=== PATIENT | female | born 1940 | race Caucasian/White ===

== ENCOUNTER 2018-04-20 20:55 | Emergency (ER) | payer MEDICARE ==
[2018-04-20 21:06] VITALS: PULSE 77; RESP 18; TEMP 98.2
[2018-04-20] MEDS ORDERED: DICYCLOMINE 10 MG/ML 2 ML AMP IM STA (21:39)
[2018-04-20] MEDS ORDERED: ACETAMINOPHEN TAB 500 MG TAB PO STA ×2 (21:40→21:58)
[2018-04-20] MEDS ORDERED: KETOROLAC 30 MG/ML 1 ML VIAL IM STA (21:40)
--- NOTE | 2018-04-20 22:09 | ED ---
General Adult HPI - General Chief complaint: Abdominal Pain Stated complaint: abdominal pain Time Seen by Provider: 04/20/18 21:18 Source: patient, RN notes reviewed Mode of arrival: ambulatory Limitations: no limitations - History of Present Illness Initial comments: 77-year-old female since to the emergency department for a chief complaint of abdominal pain 1 hour. Patient states she has had diarrhea for the past 10 days. Patient states she saw her primary care provider for this and was put on Flagyl. She states she had a bad reaction to the Flagyl and started to have facial swelling so stopped that. Patient states she was then put on Cipro. Patient states that today she drank wine and accidentally took the Flagyl. She expressed abdominal pain from this. Patient admits to having past history of C. diff. Patient denies any recent antibiotic use previous to the Cipro or Flagyl. Patient denies any recent hospitalizations or exposure to nursing homes. Patient does admit to mucus in the stool but denies blood. Patient states she does not want any blood work or imaging done today. Patient denies nausea or vomiting. Patient states she solely wants something for pain. Patient has no other complaints at this time including shortness of breath, chest pain, nausea or vomiting, headache, or visual changes. - Related Data Home Medications Medication Instructions Recorded Confirmed Ciprofloxacin HCl 250 mg PO Q12HR 04/20/18 04/20/18 Allergies Allergy/AdvReac Type Severity Reaction Status Date / Time Penicillins Allergy Unknown Unknown Verified 04/19/14 13:57 Review of Systems ROS Statement: Those systems with pertinent positive or pertinent negative responses have been documented in the HPI. ROS Other: All systems not noted in ROS Statement are negative. Past Medical History Past Medical History: No Reported History History of Any Multi-Drug Resistant Organisms: None Reported Additional Past Surgical History / Comment(s): mastectomy, andrew transfewr Past Psychological History: No Psychological Hx Reported Smoking Status: Former smoker Past Alcohol Use History: Daily General Exam Limitations: no limitations General appearance: alert, in no apparent distress Eye exam: Present: normal appearance. Absent: scleral icterus, conjunctival injection GI/Abdominal exam: Present: soft, tenderness (generalized tenderness noted. patient only let me examine her while sitting in the chair and refused to lay down.), normal bowel sounds. Absent: distended, guarding, rebound, rigid Neurological exam: Present: alert, oriented X3, CN II-XII intact Psychiatric exam: Present: normal affect, normal mood Course Vital Signs 04/20/18 21:03 Temperature 98.2 F Pulse Rate 77 Respiratory 18 Rate O2 Sat by Pulse 98 Oximetry Medical Decision Making - Medical Decision Making 77-year-old female presents to the emergency department for a chief complaint of abdominal pain after taking Flagyl while drinking a glass of wine. Patient had Diarrhea for 10 days and was seen by primary care for this and given Cipro and Flagyl. Patient went to take the Cipro while drinking wine but accidentally took the Flagyl. Patient states she is only here for pain medication however patient did drive to the emergency department. I discussed with patient that there is possibility of C. diff infection, diverticulitis, intestinal abscess, as well as other medical complications with her complaint. Patient states she does not want an exam. Patient refuses to put on a gown. Patient states she does not want any blood work or imaging. Patient understands the risks of these medical complications and states she would like to follow-up with primary care for this. She states she only wants pain medications so was given Toradol Tylenol and Bentyl. She states tonight is not a good night for her to be seen in the emergency department and she wants to go home against our recommendation of further workup. On reexamination patient is feeling considerably better. Patient will follow up with primary care for this and return if she has any worsening symptoms. Disposition Clinical Impression: Abdominal pain, Diarrhea Disposition: HOME SELF-CARE Condition: Good Instructions: Abdominal Pain (ED) Additional Instructions: Please follow up with primary care provider tomorrow. Continue to take your medications as directed by primary care. Return to the emergency department if you have any worsening symptoms. Is patient prescribed a controlled substance at d/c from ED?: No Referrals: Raad John MD [Primary Care Provider] - 1-2 days Time of Disposition: 22:08
[2018-04-20 22:10] VITALS: BP 136/81
== END 2018-04-20 22:23 | disposition home or self-care (01) ==
LOC: EC 20:55
DX: R10.9 Unspecified abdominal pain (principal); R19.7 Diarrhea, unspecified; Z53.29 Procedure and treatment not carried out because of patient's decision for other reasons; Z87.891 Personal history of nicotine dependence; Z88.0 Allergy status to penicillin
CPT/HCPCS: 99284; 96372 ×2; J0500; J1885

== ENCOUNTER 2018-04-21 09:07 | Inpatient (IN) | payer MEDICARE ==
[2018-04-21] MEDS ORDERED: MAG HYDROX/AL HYDROX/SIMETH 30 ML, HYOSCYAMINE ELIXIR 10 ML, CIMETIDINE HCL 300 MG, LID... PO STA ×4 (09:22)
[2018-04-21] MEDS ORDERED: ONDANSETRON ODT 4 MG TAB PO STA (09:22)
--- NOTE | 2018-04-21 09:44 | ED ---
Abdominal Pain HPI - General Chief Complaint: Abdominal Pain Stated Complaint: abd pain Time Seen by Provider: 04/21/18 09:15 Source: patient, RN notes reviewed Mode of arrival: ambulatory Limitations: no limitations - History of Present Illness Initial Comments: 77-year-old female presents emergency Department chief complaint upper abdominal pain, nausea vomiting. Patient states she seen in emergency department last night for pain after drinking a glass of wine and taking Flagyl. She states that she initially was prescribed Flagyl for ongoing diarrhea greater than 10 days. She states that she started having a reaction to this so they switched her to ciprofloxacin. She states that she took the Flagyl instead of the Cipro last night and drink a glass of wine. She states that she didn't start vomiting until this morning but had some upper abdominal pain associated with her medication. Patient states that she has no chest pain , shortness breath, back pain, dysuria, hematuria. - Related Data Home Medications Medication Instructions Recorded Confirmed Celecoxib [CeleBREX] 200 mg PO DAILY 04/21/18 04/21/18 Ergocalciferol (Vitamin D2) 50,000 unit PO Q14D 04/21/18 04/21/18 [Vitamin D2] Lisinopril [Zestril] 10 mg PO DAILY 04/21/18 04/21/18 Oxybutynin Chloride 5 mg PO BID 04/21/18 04/21/18 Allergies Allergy/AdvReac Type Severity Reaction Status Date / Time Penicillins Allergy Unknown Unknown Verified 04/21/18 10:12 Review of Systems ROS Statement: Those systems with pertinent positive or pertinent negative responses have been documented in the HPI. ROS Other: All systems not noted in ROS Statement are negative. Past Medical History Past Medical History: No Reported History History of Any Multi-Drug Resistant Organisms: None Reported Additional Past Surgical History / Comment(s): mastectomy, andrew transfewr Past Psychological History: No Psychological Hx Reported Smoking Status: Former smoker Past Alcohol Use History: Daily General Exam Limitations: no limitations General appearance: alert, in no apparent distress Head exam: Present: atraumatic, normocephalic, normal inspection Neck exam: Present: normal inspection. Absent: tenderness, meningismus, lymphadenopathy Respiratory exam: Present: normal lung sounds bilaterally. Absent: respiratory distress, wheezes, rales, rhonchi, stridor Cardiovascular Exam: Present: regular rate, normal rhythm, normal heart sounds. Absent: systolic murmur, diastolic murmur, rubs, gallop, clicks GI/Abdominal exam: Present: soft, tenderness (Mild to moderate upper abdominal tenderness), normal bowel sounds. Absent: distended, guarding, rebound, rigid Back exam: Absent: CVA tenderness (R), CVA tenderness (L) Neurological exam: Present: alert, oriented X3, CN II-XII intact Skin exam: Present: warm, dry, intact, normal color. Absent: rash Course Vital Signs 04/21/18 04/21/18 04/21/18 09:11 09:57 11:00 Temperature 98.1 F Pulse Rate 72 68 84 Respiratory 20 18 18 Rate Blood Pressure 183/81 204/79 192/86 O2 Sat by Pulse 100 97 99 Oximetry 04/21/18 11:51 Temperature Pulse Rate 101 H Respiratory 20 Rate Blood Pressure 209/92 O2 Sat by Pulse 97 Oximetry - Reevaluation(s) Reevaluation #1: 04/21/18 09:43 I initially evaluated the patient and recommended lab work, IV access, medications and CT of abdomen and pelvis patient is refusing all treatment at this time she is requesting pain medication, nausea medication and discharge. I did explain the concerns and recommendations for lab work and imaging. Reevaluation #2: 04/21/18 10:24 Patient reevaluated after GI cocktail Zofran she states that helped some but did not help completely she is requesting pain medication I did inform that she needs to have lab work, CAT scan she does agree at this time she did state the pain has moved into her back at this time Medical Decision Making - Lab Data Result diagrams: 04/21/18 10:39 04/21/18 10:39 Lab Results 04/21/18 04/21/18 04/21/18 Range/Units 10:39 10:39 10:39 WBC 15.0 H (3.8-10.6) k/uL RBC 4.47 (3.80-5.40) m/uL Hgb 13.7 (11.4-16.0) gm/dL Hct 42.5 (34.0-46.0) % MCV 95.2 (80.0-100.0) fL MCH 30.6 (25.0-35.0) pg MCHC 32.2 (31.0-37.0) g/dL RDW 12.7 (11.5-15.5) % Plt Count 230 (150-450) k/uL Neutrophils % 92 % Lymphocytes % 4 % Monocytes % 4 % Eosinophils % 0 % Basophils % 0 % Neutrophils # 13.7 H (1.3-7.7) k/uL Lymphocytes # 0.6 L (1.0-4.8) k/uL Monocytes # 0.6 (0-1.0) k/uL Eosinophils # 0.0 (0-0.7) k/uL Basophils # 0.0 (0-0.2) k/uL PT (9.0-12.0) sec INR (<1.2) APTT (22.0-30.0) sec Sodium 139 (137-145) mmol/L Potassium 4.4 (3.5-5.1) mmol/L Chloride 103 (98-107) mmol/L Carbon Dioxide 26 (22-30) mmol/L Anion Gap 10 mmol/L BUN 23 H (7-17) mg/dL Creatinine 0.70 (0.52-1.04) mg/dL Est GFR (CKD-EPI)AfAm >90 (>60 ml/min/1.73 sqM) Est GFR (CKD-EPI)NonAf 84 (>60 ml/min/1.73 sqM) Glucose 164 H (74-99) mg/dL Plasma Lactic Acid Gregg 1.0 (0.7-2.0) mmol/L Calcium 10.1 (8.4-10.2) mg/dL Total Bilirubin 0.5 (0.2-1.3) mg/dL AST 23 (14-36) U/L ALT 26 (9-52) U/L Alkaline Phosphatase 112 (38-126) U/L Troponin I (0.000-0.034) ng/mL Total Protein 6.8 (6.3-8.2) g/dL Albumin 4.3 (3.5-5.0) g/dL Amylase 70 (30-110) U/L Lipase 71 (23-300) U/L 04/21/18 04/21/18 Range/Units 10:39 10:39 WBC (3.8-10.6) k/uL RBC (3.80-5.40) m/uL Hgb (11.4-16.0) gm/dL Hct (34.0-46.0) % MCV (80.0-100.0) fL MCH (25.0-35.0) pg MCHC (31.0-37.0) g/dL RDW (11.5-15.5) % Plt Count (150-450) k/uL Neutrophils % % Lymphocytes % % Monocytes % % Eosinophils % % Basophils % % Neutrophils # (1.3-7.7) k/uL Lymphocytes # (1.0-4.8) k/uL Monocytes # (0-1.0) k/uL Eosinophils # (0-0.7) k/uL Basophils # (0-0.2) k/uL PT 9.7 (9.0-12.0) sec INR 1.0 (<1.2) APTT 22.1 (22.0-30.0) sec Sodium (137-145) mmol/L Potassium (3.5-5.1) mmol/L Chloride (98-107) mmol/L Carbon Dioxide (22-30) mmol/L Anion Gap mmol/L BUN (7-17) mg/dL Creatinine (0.52-1.04) mg/dL Est GFR (CKD-EPI)AfAm (>60 ml/min/1.73 sqM) Est GFR (CKD-EPI)NonAf (>60 ml/min/1.73 sqM) Glucose (74-99) mg/dL Plasma Lactic Acid Gregg (0.7-2.0) mmol/L Calcium (8.4-10.2) mg/dL Total Bilirubin (0.2-1.3) mg/dL AST (14-36) U/L ALT (9-52) U/L Alkaline Phosphatase (38-126) U/L Troponin I <0.012 (0.000-0.034) ng/mL Total Protein (6.3-8.2) g/dL Albumin (3.5-5.0) g/dL Amylase (30-110) U/L Lipase (23-300) U/L - EKG Data EKG Comments: EKG performed at 10:52 normal sinus rhythm with a rate of 79 ME 126, QRS 84 QT/ QTc 412/472 Disposition Clinical Impression: Small bowel obstruction, Abdominal pain, Ascites Disposition: ADMITTED IP TO THIS HOSP Condition: Fair Referrals: Raad John MD [Primary Care Provider] - 1-2 days
[2018-04-21] MEDS ORDERED: MORPHINE SULFATE 2 MG/ML SYRINGE IVP STA (10:23)
[2018-04-21] MEDS ORDERED: SODIUM CHLORIDE 0.9% 1,000 ML IV STA (10:23)
[2018-04-21 11:09] LABS: Basophils % (A) 0 %; Eosinophils % (A) 0 %; HCT 42.5 % (34.0-46.0); HGB 13.7 gm/dL (11.4-16.0); Lymphocytes # (A) 0.6 k/uL (1.0-4.8); Lymphocytes % (A) 4 %; MCH 30.6 pg (25.0-35.0); MCHC 32.2 g/dL (31.0-37.0); MCV 95.2 fL (80.0-100.0); Mean Platelet Volume 7.4; Monocytes # (A) 0.6 k/uL (0-1.0); Monocytes % (A) 4 %; Neutrophils # (A) 13.7 k/uL (1.3-7.7); Neutrophils % (A) 92 %; Platelet Count 230 k/uL (150-450); RBC 4.47 m/uL (3.80-5.40); RDW 12.7 % (11.5-15.5)
[2018-04-21 11:15] LABS: Partial Thromboplastin Time 22.1 sec (22.0-30.0); Prothrombin Time 9.7 sec (9.0-12.0)
[2018-04-21 11:16] LABS: ALT 26 U/L (9-52); AST 23 U/L (14-36); Albumin 4.3 g/dL (3.5-5.0); Alkaline Phosphatase 112 U/L (38-126); Amylase 70 U/L (30-110); Anion Gap 10 mmol/L; Blood Urea Nitrogen 23 mg/dL (7-17); Calcium 10.1 mg/dL (8.4-10.2); Carbon Dioxide 26 mmol/L (22-30); Chloride 103 mmol/L (98-107); Glucose 164 mg/dL (74-99); Lipase 71 U/L (23-300); Potassium 4.4 mmol/L (3.5-5.1); Sodium 139 mmol/L (137-145); Total Bilirubin 0.5 mg/dL (0.2-1.3); Total Protein 6.8 g/dL (6.3-8.2)
[2018-04-21] MEDS ORDERED: HYDROmorphone 0.5 MG/0.5 ML SYRINGE IVP STA (12:06)
[2018-04-21] MEDS ORDERED: ENALAPRILAT 1.25 MG/ML 1 ML VIAL IVP STA (12:06)
--- NOTE | 2018-04-21 12:06 | CT ---
EXAMINATION TYPE: CT abdomen pelvis w con DATE OF EXAM: 04/21/2018 COMPARISON: NONE HISTORY: 77-year-old female with abdominal pain for 1 day TECHNIQUE: Contiguous axial scanning of the abdomen and pelvis following administration of 100 ml Iso angelo 300 IV contrast. Delayed images through the kidneys and coronal/sagittal reconstructions perform ed. CT DLP: 968 mGycm Automated exposure control for dose reduction was used. FINDINGS: Bilateral breast implants are present. Heart normal size without pericardial effusion. Mild dependent atelectasis in the visualized lower lungs. No pleural effusion. A couple tiny subcentimeter hypodensities left hepatic dome too small fracture CT characterization, l ikely tiny cysts. 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 Portal venous system is patent. No biliary ductal dilatation. Gallbladder appears within normal limits. Adrenal glands, kidneys, spleen, and pancreas appear within normal limits. Small hiatal hernia. Prominent fluid filled small bowel loops mid and lower abdomen. Small bowel loops measure up to 2.9 c m with collapsed distal small bowel loops. Possible transition point right perimedian midabdomen, cor onal image 29. Not clearly confirmed on axial images. There is mild upper abdominal ascites in the perihepatic and perisplenic locations. No free air. Moderate stool burden. No pericolonic inflammatory change. No suspicious lymphadenopathy clearly identified. Bladder partially distended. Uterus and ovaries are visualized. No abnormal fluid collection in the p benjamin or pelvic lymphadenopathy. Pelvic phlebolith are noted. Bones: Posterior fusion hardware in the lower lumbar spine with grade 1 anterolisthesis at L4-L5. IMPRESSION: 1. PROMINENT FLUID-FILLED PROXIMAL AND MID SMALL BOWEL LOOPS MEASURING UP TO 2.9 CM. DISTAL THIRD SMA LL BOWEL LOOPS ARE COLLAPSED. POSSIBLE TRANSITION POINT RIGHT MID ABDOMEN. FINDINGS CONCERNING FOR EA RLY HIGH-GRADE SMALL BOWEL OBSTRUCTION. 2. MILD UPPER ABDOMINAL ASCITES. 3. SMALL HIATAL HERNIA. MODERATE STOOL BURDEN.
[2018-04-21] MEDS ORDERED: NALOXONE 0.4 MG/ML 1 ML VIAL IV PRN (12:19)
--- NOTE | 2018-04-21 13:31 | XR ---
EXAMINATION TYPE: XR chest 2V DATE OF EXAM: 04/21/2018 COMPARISON: None HISTORY: 77-year-old female with pain TECHNIQUE: PA and lateral views FINDINGS: Rightward patient rotation. Heart normal size. Aorta and pulmonary vasculature within normal limits. No consolidation, pneumothorax, or pleural effusion. IMPRESSION: No acute cardiopulmonary process.
[2018-04-21 14:16] LABS: Appearance,Urine Clear (Clear); Bilirubin,Urine Negative (Negative); Blood,Urine Negative (Negative); Color,Urine Light Yellow; Glucose,Urine (UA) 1+ (Negative); Ketones,Urine 1+ (Negative); Leukocyte Esterase,Urine Negative (Negative); Nitrite,Urine Negative (Negative); Protein,Urine Negative (Negative); Specific Gravity,Urine 1.037 (1.001-1.035); Urobilinogen,Urine <2.0 mg/dL (<2.0)
--- NOTE | 2018-04-21 15:15 | P.HPIM ---
History of Present Illness H&P Date: 04/21/18 Chief Complaint: Abdominal pain This is a pleasant 77-year-old female patient of Dr John, has underlying history of osteoarthritis, hypertension, hyperlipidemia, lumbar disc disease with spinal fusion requiring prophylactic mastectomy patient presents emergency room secondary to abdominal pain of 20 hours duration, this is later followed by nausea and vomiting, no fever no chills, no sick contacts. 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 Possible transition point in the right mid abdomen concerning for early high-grade small bowel obstruction. There is also mild upper abdominal ascites. Patient will be kept nothing by mouth, NG tube to be placed, consult with Dr. Barajas her primary general surgeon Review of Systems Constitutional: Reports as per HPI, Denies anorexia, Denies chills, Denies chronic headaches, Denies chronic pain, Denies daytime sleepiness, Denies fatigue, Denies fever, Denies lethargy, Denies malaise, Denies night sweats, Denies poor appetite, Denies sweats, Denies weakness, Denies weight gain, Denies weight loss Ears, nose, mouth and throat: Reports ant. neck pain Cardiovascular: Reports as per HPI, Denies chest pain, Denies claudication, Denies decreased exercise tolerance, Denies dyspnea on exertion, Denies edema, Denies high blood pressure, Denies irregular heart beat, Denies leg edema, Denies lightheadedness, Denies orthopnea, Denies palpitations, Denies paroxysmal nocturnal dyspnea, Denies phlebitis, Denies rapid heart beat, Denies shortness of breath, Denies syncope Respiratory: Reports as per HPI, Denies congestion, Denies cough, Denies cough with sputum, Denies dyspnea, Denies excessive sputum, Denies hemoptysis, Denies home oxygen, Denies pain, Denies pain on inspiration, Denies pleurisy, Denies respiratory infections, Denies sleep apnea, Denies snoring, Denies wheezing Gastrointestinal: Reports as per HPI, Reports abdominal pain, Reports bloating, Reports constipation, Reports dyspepsia, Reports early satiety, Reports loss of appetite, Reports nausea, Reports vomiting, Denies belching, Denies BRBPR, Denies change in bowel habits, Denies coffee ground emesis, Denies diarrhea, Denies excessive gas, Denies heartburn, Denies hematemesis, Denies hematochezia , Denies indigestion, Denies jaundice, Denies lactose intolerance, Denies melena Genitourinary: Reports as per HPI, Denies abnormal vaginal bleeding, Denies decreased libido, Denies difficulty conceiving, Denies difficulty voiding, Denies dysmenorrhea, Denies dyspareunia, Denies dysuria, Denies flank pain, Denies genital sores, Denies hematuria, Denies hot flashes, Denies incomplete emptying, Denies kidney stones, Denies menorrhagia, Denies mixed incontinence, Denies nocturia, Denies pelvic pain, Denies post void dribbling, Denies , Denies prolapse symptoms, Denies stress incontinence, Denies urge incontinence , Denies urgency, Denies urinary frequency, Denies vaginal discharge, Denies vaginal dryness, Denies vaginal itching, Denies vaginal odor Menstruation: Reports as per HPI, Denies amenorrhea, Denies amenorrhea on BC, Denies currently menstrual, Denies cycle < 21 days, Denies cycle > 35 days, Denies cycle variable, Denies menses 1-7 days, Denies menses 8 or > days, Denies menses variable, Denies period heavy, Denies period light, Denies period normal, Denies period spotting, Denies post hysterectomy, Denies postmenopausal , Denies premenarcheal Musculoskeletal: Reports as per HPI, Denies arm numbness/tingling, Denies atrophy, Denies fractures, Denies frequent falls, Denies gait dysfunction, Denies hot joints, Denies leg numbness/tingling, Denies limitation of motion, Denies loss of height, Denies low back pain, Denies morning stiffness, Denies muscle cramps, Denies muscle weakness, Denies myalgias, Denies neck pain, Denies neck stiffness, Denies prior amputations, Denies redness of joints, Denies shooting arm pain, Denies shooting leg pain Integumentary: Reports as per HPI, Denies acne, Denies boils, Denies brittle nails, Denies change in hair/nails, Denies color changes, Denies darkening of skin, Denies depigmentation, Denies dryness, Denies foot/leg ulcers, Denies growths, Denies hirsutism, Denies lesions, Denies onychomycosis, Denies pruritus , Denies rash, Denies sores, Denies striae, Denies unusual bruising, Denies wounds Neurological: Reports as per HPI, Denies aphasia, Denies ataxia, Denies balance difficulties, Denies burning pain, Denies change in mentation, Denies change in smell/taste, Denies change in speech, Denies confusion, Denies convulsions, Denies double vision, Denies gait dysfunction, Denies head injury, Denies headaches, Denies hearing difficulties, Denies lack of coordination, Denies loss of vision, Denies memory loss, Denies migraines, Denies motor disturbance, Denies numbness, Denies paralysis, Denies paresthesias, Denies seizures, Denies sensory deficit, Denies spasticity, Denies syncope, Denies tic, Denies tingling , Denies transient paralysis, Denies tremors, Denies vertigo, Denies weakness, Denies visual changes Psychiatric: Reports as per HPI Endocrine: Reports as per HPI Past Medical History Past Medical History: Cancer, GERD/Reflux, Hyperlipidemia, Hypertension, Pneumonia, Sleep Apnea/CPAP/BIPAP Additional Past Medical History / Comment(s): skin ca. murmur, tremors(hands) .spinal stenosis History of Any Multi-Drug Resistant Organisms: None Reported Past Surgical History: Back Surgery, Tonsillectomy Additional Past Surgical History / Comment(s): nilam breast bx nilam mastectomy( prophyllactic-mom had hx breast ca), tendon repair lt ankle, hx shingles 20 years ago, upper dental bridge, l5-6 fusion, cataracts, colonscopies Past Anesthesia/Blood Transfusion Reactions: No Reported Reaction Additional Past Anesthesia/Blood Transfusion Reaction / Comment(s): had blood transfusion-no reaction Past Psychological History: No Psychological Hx Reported Smoking Status: Former smoker Past Alcohol Use History: Daily Additional Past Alcohol Use History / Comment(s): started smoking age 16 and quit age 35 smoked 1/2 ppd. drinks 5 ounces wine per day Past Drug Use History: None Reported - Past Family History Mother Family Medical History: Cancer Additional Family Medical History / Comment(s): breast ca Father Additional Family Medical History / Comment(s): born with heart defect- at age 49 Medications and Allergies Home Medications Medication Instructions Recorded Confirmed Type Celecoxib [CeleBREX] 200 mg PO DAILY 04/21/18 04/21/18 History Ergocalciferol (Vitamin D2) 50,000 unit PO Q14D 04/21/18 04/21/18 History [Vitamin D2] Lisinopril [Zestril] 10 mg PO DAILY 04/21/18 04/21/18 History Oxybutynin Chloride 5 mg PO BID 04/21/18 04/21/18 History Allergies Allergy/AdvReac Type Severity Reaction Status Date / Time Penicillins Allergy Unknown Unknown Verified 04/21/18 10:12 Physical Exam Vitals: Vital Signs Temp Pulse Pulse Resp BP BP Pulse Ox 04/21/18 14:43 98.5 F 89 16 159/79 97 04/21/18 13:04 91 18 182/79 96 04/21/18 11:51 101 H 20 209/92 97 04/21/18 11:00 84 18 192/86 99 04/21/18 09:57 68 18 204/79 97 04/21/18 09:11 98.1 F 72 20 183/81 100 Intake and Output 04/20/18 04/21/18 04/21/18 22:59 06:59 14:59 Other: Weight 56.699 kg - Constitutional General appearance: cooperative - EENT Eyes: anicteric sclerae, PERRLA, poor dentition, normal appearance ENT: NA/AT, normal oropharynx - Neck Neck: no lymphadenopathy, normal ROM, no other, no rigidity, no stridor, no thyromegaly - Respiratory Respiratory: bilateral: CTA, negative: diminished, dullness, rales, rhonchi - Cardiovascular Rhythm: regular Heart sounds: normal: S1, S2 Abnormal Heart Sounds: no systolic murmur, no diastolic murmur, no rub, no S3 Gallop, no S4 Gallop, no click, no other - Gastrointestinal General gastrointestinal: absent bowel sounds, soft Localized gastrointestinal: tender: diffuse, rebound: LUQ - Integumentary Integumentary: decreased turgor, normal - Neurologic Neurologic: CNII-XII intact - Musculoskeletal Musculoskeletal: gait normal, strength equal bilaterally - Psychiatric Psychiatric: A&O x's 3, appropriate affect, intact judgment & insight Results CBC & Chem 7: 04/21/18 10:39 04/21/18 10:39 Labs: Abnormal Lab Results - Last 24 Hours (Table) 04/21/18 04/21/18 04/21/18 Range/Units 10:39 10:39 13:50 WBC 15.0 H (3.8-10.6) k/uL Neutrophils # 13.7 H (1.3-7.7) k/uL Lymphocytes # 0.6 L (1.0-4.8) k/uL BUN 23 H (7-17) mg/dL Glucose 164 H (74-99) mg/dL Ur Specific [place] 1.037 H (1.001-1.035) Urine Glucose (UA) 1+ H (Negative) Urine Ketones 1+ H (Negative) Thrombosis Risk Factor Assmnt - DVT/VTE Prophylaxis DVT/VTE Prophylaxis: Pharmacologic Prophylaxis ordered - Choose All That Apply Each Risk Factor Represents 2 Points: Patient confined to bed Each Risk Factor Represents 3 Points: Age 75 years or older Thrombosis Risk Factor Assessment Total Risk Factor Score: 5 Thrombosis Risk Factor Assessment Level: High Risk Assessment and Plan Plan: 1. Acute abdominal pain with suspected high-grade small bowel obstruction on the early phase, patient's going to be made nothing by mouth, NG tube, consult with Dr. Barajas, should there be immediate surgical intervention this hospitalization, she'll be a class II anesthesia risk, EKG is normal without any acute ST-T wave changes, chest x-ray shows no acute cardiopulmonary processes. IV opiates for pain, antiemetics, IV hydration 2. Hypertension, on lisinopril, while nothing by mouth, hydralazine to be given 10 mg every 6 when necessary 3. Hyperlipidemia, Zocor on hold 4. Osteoarthritis, Celebrex on hold 5. Leukocytosis secondary to abdominal pathology, 6. 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 Continue to monitor 7. Impaired random blood sugars, continue to monitor. Sugars, A1c to be obtained 8. Mild dehydration with mild azotemia and ketonuria, IV hydration 9. GI prophylaxis with IV PPI 10. DVT prophylaxis, Lovenox 40 every 24 hours
[2018-04-21] MEDS ORDERED: ENALAPRILAT 1.25 MG/ML 1 ML VIAL IVP PRN (15:17)
[2018-04-21] MEDS: SODIUM CHLORIDE 0.9% 1,000 ML IV SCH (15:30)
[2018-04-21] MEDS: ENOXAPARIN 40 MG/0.4 ML SYRINGE SQ SCH (16:21)
[2018-04-21] MEDS: PANTOPRAZOLE 40 MG/10 ML VIAL IVP SCH (16:22)
[2018-04-21] MEDS: HYDROmorphone 1 MG/ML 1 ML SYRINGE IVP PRN ×4 (16:24→23:54)
--- NOTE | 2018-04-21 17:35 | P.GSCN ---
History of Present Illness Consult date: 04/21/18 Reason for Consult: Abdominal pain History of present illness: 77-year-old female known to our service. He was having abdominal issues dating back approximately 10-14 days ago when she was having episodes of diarrhea in the morning which were mucousy. She was seen by her primary care physician. She was started on oral Flagyl at that time. She apparently had a ALLERGIC reaction with some alondra-oral swelling and stopped taking her Flagyl. She instead was provided a prescription for ciprofloxacin. By the time she picked up her prescription she said her GI complaints had resolved and she never started taking them. Yesterday she apparently had a mucousy stool and went to take her ciprofloxacin but accidentally took one dose of Flagyl. She had a glass of wine as well. Shortly after that she began experiencing increased abdominal pain. She went to the ER for evaluation. White blood cell count slightly elevated at 15.0. Lactic acid normal. Patient describes her pain is persisting at this time. Pain is slightly more in the left midabdomen. CAT scan without oral contrast shows dilated small bowel loops with a possible transition point just to the right of midline in the lower abdomen. Patient has no history of surgical intervention in the abdomen. There is a fair amount of air and stool scattered throughout the entire colon however. Small amount of free fluid seen in the upper abdomen. No evidence of pneumoperitoneum. Nasogastric tube apparently was ordered however the patient is not vomiting currently would prefer to avoid that if at all possible. No recent travel. No sick contacts. She had a history somewhat similar to this but it was about 20 years ago or so. That episode resolved spontaneously. Last colonoscopy 4-[address] Gaviria. That was apparently normal. Denies rectal bleeding or melena. Emesis was dark in color. Review of Systems The patient denies any acute changes in vision or hearing, no dysphagia or odynophagia, no chest pain or shortness of breath, no dysuria or hematuria, no headache, no runny nose, no rectal bleeding or melena, no unexplained weight loss Past Medical History Past Medical History: Cancer, GERD/Reflux, Hyperlipidemia, Hypertension, Pneumonia, Sleep Apnea/CPAP/BIPAP Additional Past Medical History / Comment(s): skin ca. murmur, tremors(hands) .spinal stenosis History of Any Multi-Drug Resistant Organisms: None Reported Past Surgical History: Back Surgery, Tonsillectomy Additional Past Surgical History / Comment(s): nilam breast bx nilam mastectomy( prophyllactic-mom had hx breast ca), tendon repair lt ankle, hx shingles 20 years ago, upper dental bridge, l5-6 fusion, cataracts, colonscopies Past Anesthesia/Blood Transfusion Reactions: No Reported Reaction Additional Past Anesthesia/Blood Transfusion Reaction / Comm: had blood transfusion-no reaction Past Psychological History: No Psychological Hx Reported Smoking Status: Former smoker Past Alcohol Use History: Daily Additional Past Alcohol Use History / Comment(s): started smoking age 16 and quit age 35 smoked 1/2 ppd. drinks 5 ounces wine per day Past Drug Use History: None Reported - Past Family History Mother Family Medical History: Cancer Additional Family Medical History / Comment(s): breast ca Father Additional Family Medical History / Comment(s): born with heart defect- at age 49 Medications and Allergies Home Medications Medication Instructions Recorded Confirmed Type Celecoxib [CeleBREX] 200 mg PO DAILY 04/21/18 04/21/18 History Ergocalciferol (Vitamin D2) 50,000 unit PO Q14D 04/21/18 04/21/18 History [Vitamin D2] Lidocaine 5% Patch [Lidoderm] 1 patch TOPICAL DAILY 04/21/18 04/21/18 History Lisinopril [Zestril] 10 mg PO DAILY 04/21/18 04/21/18 History Oxybutynin Chloride 5 mg PO BID 04/21/18 04/21/18 History Simvastatin [Zocor] 10 mg PO HS 04/21/18 04/21/18 History Zolpidem [Ambien] 5 mg PO HS PRN 04/21/18 04/21/18 History Allergies Allergy/AdvReac Type Severity Reaction Status Date / Time Penicillins Allergy Unknown Unknown Verified 04/21/18 10:12 Surgical - Exam Vital Signs Temp Pulse Resp BP Pulse Ox 98.1 F 72 20 183/81 100 04/21/18 09:11 04/21/18 09:11 04/21/18 09:11 04/21/18 09:11 04/21/18 09:11 Physical exam: General: Well-developed, well-nourished HEENT: Normocephalic, sclerae nonicteric Abdomen: Mid abdominal tenderness, mild distention Extremities: No edema Neuro: Alert and oriented Results - Labs 04/21/18 10:39 04/21/18 10:39 Abnormal Lab Results - Last 24 Hours (Table) 04/21/18 04/21/18 04/21/18 Range/Units 10:39 10:39 13:50 WBC 15.0 H (3.8-10.6) k/uL Neutrophils # 13.7 H (1.3-7.7) k/uL Lymphocytes # 0.6 L (1.0-4.8) k/uL BUN 23 H (7-17) mg/dL Glucose 164 H (74-99) mg/dL Ur Specific [place] 1.037 H (1.001-1.035) Urine Glucose (UA) 1+ H (Negative) Urine Ketones 1+ H (Negative) Diabetes panel 04/21/18 Range/Units 10:39 Sodium 139 (137-145) mmol/L Potassium 4.4 (3.5-5.1) mmol/L Chloride 103 (98-107) mmol/L Carbon Dioxide 26 (22-30) mmol/L BUN 23 H (7-17) mg/dL Creatinine 0.70 (0.52-1.04) mg/dL Glucose 164 H (74-99) mg/dL Calcium 10.1 (8.4-10.2) mg/dL AST 23 (14-36) U/L ALT 26 (9-52) U/L Alkaline Phosphatase 112 (38-126) U/L Total Protein 6.8 (6.3-8.2) g/dL Albumin 4.3 (3.5-5.0) g/dL Calcium panel 04/21/18 Range/Units 10:39 Calcium 10.1 (8.4-10.2) mg/dL Albumin 4.3 (3.5-5.0) g/dL Pituitary panel 04/21/18 Range/Units 10:39 Sodium 139 (137-145) mmol/L Potassium 4.4 (3.5-5.1) mmol/L Chloride 103 (98-107) mmol/L Carbon Dioxide 26 (22-30) mmol/L BUN 23 H (7-17) mg/dL Creatinine 0.70 (0.52-1.04) mg/dL Glucose 164 H (74-99) mg/dL Calcium 10.1 (8.4-10.2) mg/dL Adrenal panel 04/21/18 Range/Units 10:39 Sodium 139 (137-145) mmol/L Potassium 4.4 (3.5-5.1) mmol/L Chloride 103 (98-107) mmol/L Carbon Dioxide 26 (22-30) mmol/L BUN 23 H (7-17) mg/dL Creatinine 0.70 (0.52-1.04) mg/dL Glucose 164 H (74-99) mg/dL Calcium 10.1 (8.4-10.2) mg/dL Total Bilirubin 0.5 (0.2-1.3) mg/dL AST 23 (14-36) U/L ALT 26 (9-52) U/L Alkaline Phosphatase 112 (38-126) U/L Total Protein 6.8 (6.3-8.2) g/dL Albumin 4.3 (3.5-5.0) g/dL Assessment and Plan (1) Abdominal pain Narrative/Plan: 77-year-old female with abdominal pain and CAT scan findings suspicious for partial small bowel obstruction. Keep nothing by mouth for now. Repeat labs and x-rays tomorrow morning. If no clinical improvement would consider diagnostic laparoscopy particularly in light of the patient's lack of previous abdominal surgeries. Current Visit: Yes Status: Acute Code(s): R10.9 - UNSPECIFIED ABDOMINAL PAIN SNOMED Code(s): 72957878
[2018-04-22] MEDS: HYDROmorphone 1 MG/ML 1 ML SYRINGE IVP PRN ×4 (02:55→21:33)
[2018-04-22] MEDS: SODIUM CHLORIDE 0.9% 1,000 ML IV SCH ×3 (03:56→17:52)
[2018-04-22 07:52] LABS: Basophils % (A) 0 %; Eosinophils % (A) 0 %; HCT 46.7 % (34.0-46.0); HGB 14.5 gm/dL (11.4-16.0); Lymphocytes # (A) 0.8 k/uL (1.0-4.8); Lymphocytes % (A) 5 %; MCH 30.2 pg (25.0-35.0); MCHC 31.1 g/dL (31.0-37.0); MCV 97.1 fL (80.0-100.0); Mean Platelet Volume 7.3; Monocytes # (A) 1.1 k/uL (0-1.0); Monocytes % (A) 7 %; Neutrophils # (A) 14.9 k/uL (1.3-7.7); Neutrophils % (A) 88 %; Platelet Count 257 k/uL (150-450); RBC 4.81 m/uL (3.80-5.40); RDW 12.9 % (11.5-15.5); WBC 16.9 k/uL (3.8-10.6)
[2018-04-22 08:06] LABS: ALT 24 U/L (9-52); AST 16 U/L (14-36); Albumin 3.3 g/dL (3.5-5.0); Alkaline Phosphatase 70 U/L (38-126); Anion Gap 7 mmol/L; Blood Urea Nitrogen 16 mg/dL (7-17); Calcium 8.8 mg/dL (8.4-10.2); Carbon Dioxide 25 mmol/L (22-30); Chloride 108 mmol/L (98-107); Glucose 156 mg/dL (74-99); Potassium 4.5 mmol/L (3.5-5.1); Sodium 140 mmol/L (137-145); Total Bilirubin 0.5 mg/dL (0.2-1.3); Total Protein 5.6 g/dL (6.3-8.2)
[2018-04-22] MEDS ORDERED: ERTAPENEM 1 GM in SODIUM CHLORIDE 0.9% 50 ML IVPB SCH (09:15)
[2018-04-22] MEDS: ONDANSETRON 4 MG/2 ML VIAL IVP PRN ×2 (09:15→12:14)
[2018-04-22] MEDS: ENOXAPARIN 40 MG/0.4 ML SYRINGE SQ SCH (09:15)
[2018-04-22] MEDS: PANTOPRAZOLE 40 MG/10 ML VIAL IVP SCH (09:16)
[2018-04-22] MEDS: LISINOPRIL 10 MG TAB PO SCH (09:16)
--- NOTE | 2018-04-22 09:20 | P.PN ---
Subjective Progress Note Date: 04/22/18 Principal diagnosis: Abdominal pain Patient evaluated after x-rays performed today. Still having abdominal pain at the same degree as yesterday. Today's white blood cell count slightly higher than yesterday. Abdominal x-ray report pending although obstructive pattern seems improved. No free air is seen. Patient is afebrile with no tachycardia. Objective - Vital Signs Vital signs: Vital Signs Temp 97.3 F L 04/22/18 05:49 Pulse 86 04/22/18 05:49 Resp 16 04/22/18 05:49 BP 137/69 04/22/18 05:49 Pulse Ox 95 04/22/18 05:49 Intake & Output 04/21/18 04/22/18 04/22/18 18:59 06:59 18:59 Weight 56.699 kg Other: # Voids 1 - Exam Abdomen: Soft, mild distention, mild to moderate diffuse tenderness slightly increased from yesterday. - Labs CBC & Chem 7: 04/22/18 07:39 04/22/18 07:39 Labs: Abnormal Lab Results - Last 24 Hours (Table) 04/21/18 04/21/18 04/21/18 Range/Units 10:39 10:39 13:50 WBC 15.0 H (3.8-10.6) k/uL Hct (34.0-46.0) % Neutrophils # 13.7 H (1.3-7.7) k/uL Lymphocytes # 0.6 L (1.0-4.8) k/uL Monocytes # (0-1.0) k/uL Chloride (98-107) mmol/L BUN 23 H (7-17) mg/dL Glucose 164 H (74-99) mg/dL Total Protein (6.3-8.2) g/dL Albumin (3.5-5.0) g/dL Ur Specific [place] 1.037 H (1.001-1.035) Urine Glucose (UA) 1+ H (Negative) Urine Ketones 1+ H (Negative) 04/22/18 04/22/18 Range/Units 07:39 07:39 WBC 16.9 H (3.8-10.6) k/uL Hct 46.7 H (34.0-46.0) % Neutrophils # 14.9 H (1.3-7.7) k/uL Lymphocytes # 0.8 L (1.0-4.8) k/uL Monocytes # 1.1 H (0-1.0) k/uL Chloride 108 H (98-107) mmol/L BUN (7-17) mg/dL Glucose 156 H (74-99) mg/dL Total Protein 5.6 L (6.3-8.2) g/dL Albumin 3.3 L (3.5-5.0) g/dL Ur Specific [place] (1.001-1.035) Urine Glucose (UA) (Negative) Urine Ketones (Negative) Assessment and Plan (1) Abdominal pain Narrative/Plan: Patient having ongoing abdominal pain with leukocytosis. Given initial CAT scan findings and exam findings recommend diagnostic laparoscopy. Potential need for laparotomy and/or bowel resection and/or ostomy reviewed. Risks of bleeding, infection, laparotomy, hernia, abscess, anesthesia related complications including cardiac and respiratory issues were discussed. She understands and wishes to proceed. Current Visit: Yes Status: Acute Code(s): R10.9 - UNSPECIFIED ABDOMINAL PAIN SNOMED Code(s): 83004142
--- NOTE | 2018-04-22 10:53 | XR ---
EXAMINATION TYPE: XR abdomen complete w decub DATE OF EXAM: 04/22/2018 COMPARISON: CT abdomen pelvis 04/21/2018 HISTORY: Partial small bowel obstruction TECHNIQUE: Supine, upright, and left side down lateral decubitus views of the abdomen are obtained. FINDINGS: There is no evidence for pneumoperitoneum. The bowel gas pattern is unremarkable as there is air throughout nondilated small and large bowel. No sizeable air fluid levels. No mass effects are seen. Postop changes are noted at the lumbosacral spine. Lung bases are clear. R etained fecal debris is noted. No unusual calcifications. IMPRESSION: Correlate for fecal stasis. Follow-up as indicated.
[2018-04-22] MEDS ORDERED: IV FLUID CONTINUATION 1,000 ML IV ONE (12:13)
[2018-04-22] MEDS ORDERED: MIDAZOLAM 2 MG/2 ML VIAL IV ONE (12:31)
[2018-04-22 13:24] LABS: Hemoglobin A1C 5.9 % (4.0-6.0)
[2018-04-22] MEDS ORDERED: MIDAZOLAM 2 MG/2 ML VIAL ONE (13:31)
[2018-04-22] MEDS ORDERED: GLYCOPYRROLATE 0.2 MG/ML 2 ML VIAL ONE (13:31)
[2018-04-22] MEDS ORDERED: ROCURONIUM BROMIDE 10 MG/ML 10 ML VIAL IV ONE (13:31)
[2018-04-22] MEDS ORDERED: LIDOCAINE 1% INJ 10MG/ML (20 ML MDV) ONE (13:31)
[2018-04-22] MEDS ORDERED: NEOSTIGMINE 1 MG/ML 10 ML VIAL ONE (13:31)
[2018-04-22] MEDS ORDERED: SUCCINYLCHOLINE CHLORIDE 100 MG/5 ML SYR IV ONE (13:31)
[2018-04-22] MEDS ORDERED: fentaNYL (PF) 50 MCG/ML 2 ML AMP ONE (13:31)
[2018-04-22] MEDS ORDERED: PHENYLEPHRINE-0.9% NACL SYG 1 MG/10 ML SYRINGE ONE (13:31)
[2018-04-22] MEDS ORDERED: metroNIDAZOLE-NS PMX 500 MG in SALINE 1 100ML.BAG IVPB STA (13:34)
--- NOTE | 2018-04-22 15:05 | P.PN ---
Subjective Progress Note Date: 04/22/18 This is a pleasant 77-year-old female patient of Dr John, has underlying history of osteoarthritis, hypertension, hyperlipidemia, lumbar disc disease with spinal fusion requiring prophylactic mastectomy patient presents emergency room secondary to abdominal pain of 20 hours duration, this is later followed by nausea and vomiting, no fever no chills, no sick contacts. 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 Possible transition point in the right mid abdomen concerning for early high-grade small bowel obstruction. There is also mild upper abdominal ascites. Patient will be kept nothing by mouth, NG tube to be placed, consult with Dr. Barajas her primary general surgeon 04/22: White count 16.9, hemoglobin 14.5. Blood sugar 164-156. Patient remains afebrile. Vital signs are stable. Blood pressure is controlled and heart rate is within normal limits. Pulse ox 95% on room air. Repeat abdominal x-ray shows correlate for fecal stasis. Patient has been seen and followed by Dr. Barajas with plan for diagnostic laparoscopy. Objective - Vital Signs Vital signs: Vital Signs Temp 97.3 F L 04/22/18 05:49 Pulse 86 04/22/18 08:00 Resp 16 04/22/18 08:00 BP 137/69 04/22/18 05:49 Pulse Ox 95 04/22/18 05:49 Intake & Output 04/21/18 04/22/18 04/22/18 18:59 06:59 18:59 Weight 56.699 kg Other: Voiding Method Toilet # Voids 1 - Exam General appearance: cooperative - EENT Eyes: anicteric sclerae, PERRLA, poor dentition, normal appearance ENT: NA/AT, normal oropharynx - Neck Neck: no lymphadenopathy, normal ROM, no other, no rigidity, no stridor, no thyromegaly - Respiratory Respiratory: bilateral: CTA, negative: diminished, dullness, rales, rhonchi - Cardiovascular Rhythm: regular Heart sounds: normal: S1, S2 Abnormal Heart Sounds: no systolic murmur, no diastolic murmur, no rub, no S3 Gallop, no S4 Gallop, no click, no other - Gastrointestinal General gastrointestinal: absent bowel sounds, soft Localized gastrointestinal: tender: diffuse, rebound: LUQ - Integumentary Integumentary: decreased turgor, normal - Neurologic Neurologic: CNII-XII intact - Musculoskeletal Musculoskeletal: gait normal, strength equal bilaterally - Psychiatric Psychiatric: A&O x's 3, appropriate affect, intact judgment & insight - Labs CBC & Chem 7: 04/22/18 07:39 04/22/18 07:39 Labs: Abnormal Lab Results - Last 24 Hours (Table) 04/21/18 04/22/18 04/22/18 Range/Units 13:50 07:39 07:39 WBC 16.9 H (3.8-10.6) k/uL Hct 46.7 H (34.0-46.0) % Neutrophils # 14.9 H (1.3-7.7) k/uL Lymphocytes # 0.8 L (1.0-4.8) k/uL Monocytes # 1.1 H (0-1.0) k/uL Chloride 108 H (98-107) mmol/L Glucose 156 H (74-99) mg/dL Total Protein 5.6 L (6.3-8.2) g/dL Albumin 3.3 L (3.5-5.0) g/dL Ur Specific [place] 1.037 H (1.001-1.035) Urine Glucose (UA) 1+ H (Negative) Urine Ketones 1+ H (Negative) Assessment and Plan Plan: 1. Acute abdominal pain with suspected high-grade small bowel obstruction. Continue nothing by mouth, NG tube, consult with Dr. Barajas with plan for diagnostic laparoscopy. Class II anesthesia risk, EKG is normal without any acute ST-T wave changes, chest x-ray shows no acute cardiopulmonary processes. IV opiates for pain, antiemetics, IV hydration 2. Hypertension, on lisinopril, while nothing by mouth, Vasotec 1.25 mg IV push every 6 hours for systolic blood pressure greater than 160. 3. Hyperlipidemia, Zocor on hold 4. Osteoarthritis, Celebrex on hold 5. Leukocytosis secondary to abdominal pathology, 6. CKD stage I, GFR is over 90. Continue to monitor 7. Impaired random blood sugars, continue to monitor. Sugars, A1c to be obtained 8. Mild dehydration with mild azotemia and ketonuria, IV hydration 9. GI prophylaxis with IV PPI 10. DVT prophylaxis, Lovenox 40 every 24 hours Discharge plan: Return home Impression and plan of care have been directed as dictated by the signing physician. Vanita Jacinto nurse practitioner acting as scribe for signing physician.
[2018-04-22] MEDS ORDERED: ACETAMINOPHEN IV (For NPO) 1,000 MG in EMPTY BAG 1 BAG IVPB ONE (15:11)
[2018-04-22] MEDS ORDERED: NALOXONE 0.4 MG/ML 1 ML VIAL IV PRN (15:11)
[2018-04-22] MEDS ORDERED: METOCLOPRAMIDE 5 MG/ML 2 ML VIAL IVP PRN (15:11)
[2018-04-22] MEDS ORDERED: SODIUM CHLORIDE 0.9% 50 ML with ceFAZolin 2,000 MG IV ONE ×2 (15:25)
[2018-04-22] MEDS ORDERED: LACTATED RINGERS 1,000 ML IV ONE ×2 (15:25)
[2018-04-22] MEDS: HYDROmorphone 1 MG/ML 1 ML SYRINGE IVP ONE ×3 (15:40→16:04)
[2018-04-22] MEDS ORDERED: ERTAPENEM 1 GM in SODIUM CHLORIDE 0.9% 50 ML IVPB STA (20:09)
--- NOTE | 2018-04-22 20:55 | P.OP ---
Date of Procedure: 04/22/18 Procedure(s) Performed: PREOPERATIVE DIAGNOSIS: Small bowel obstruction POSTOPERATIVE DIAGNOSIS: Small bowel obstruction with ischemic loop of bowel secondary to adhesive band PROCEDURE: Diagnostic laparoscopy, laparotomy with small bowel resection, incidental appendectomy SURGEON: Karl EBL: Minimal see anesthesia record ANESTHESIA: Gen. COMPLICATIONS: None OPERATIVE PROCEDURE: The patient was brought and placed on the operating room table in the supine position. The patient was placed under general anesthesia at that time. The abdomen was prepped and draped in the usual sterile fashion. A small vertical infraumbilical incision was made. The fascia was grasped with the Robb forceps. The fascia was retracted anteriorly. The Veress needle was advanced into the peritoneal cavity. The saline drop test was normal. Insufflation took place up to 15 mmHg. A 5 mm optical trocar was advanced and the peritoneal cavity. Upon insertion of the camera a red-pinkish serosanguineous fluid was identified in the pelvis and upper quadrants. A loop of small bowel present in the left upper quadrant had an ischemic appearance. At that time I converted to an open approach. A vertical incision was made extending from below the umbilicus to above the umbilicus. Dissection through the subcutaneous fat and fascia took place using electrocautery. The bowel was carefully inspected. The proximal bowel. Slightly distended. The ischemic section of bowel appeared to be torsed slightly related to an adhesive band. The band seemed to be emanating from the left upper quadrant retroperitoneum. Careful inspection of the area where the adhesive band originated revealed inflammatory changes adjacent to the descending colon epiploic fat. The colon itself in that area appeared normal. The entire colon was inspected and it should be noted that the patient had significant constipation with hard stools throughout. Despite that the colon was non-distended. There were no palpable masses. This constipation extended all the way down to the peritoneal reflection. The area where the bowel had been twisted had a ischemic appearance with full-thickness necrosis suspected. The portion of bowel proximal to that for a distance of approximately 1-1.5 feet also had a ischemic appearance and it was my decision to choose a site just proximal to that for resection. The bowel was resected at that point using a linear 75 blue load stapler. The bowel was divided distal to the transition point also using a linear 75 blue load stapler. The mesentery was divided using the LigaSure device. The bowel proximally was milked back to the stomach where proximally 500 mL of bilious fluid was evacuated. A [id number] anastomosis then took place. The antimesenteric portion of staple line was excised. The linear 75 stapler was fired along the antimesenteric border. The defect was then closed transversely using a TX 60 device. The TX 60 stapler line was imbricated using interrupted 3-0 GI silk Lambert sutures. The defect in the mesentery was closed using interrupted 3-0 GI silk sutures. The abdominal cavity was copiously irrigated. No bleeding was seen. The midline fascia was reapproximated using a running double-stranded #1 PDS suture. The skin was loosely reapproximated with lauryn. A sterile outer dressing was applied. At the end of this procedure the sponge and needle counts were correct. DISPOSITION: Stable to the recovery room
--- NOTE | 2018-04-22 23:37 | P.CONS ---
History of Present Illness - Reason for Consult Consult date: 04/22/18 - Chief Complaint abdominal pain - History of Present Illness pleasant 77-year-old female presents to Hospital with 20 hours of increasing abdominal pain. she has an extensive past medical history and consequently with the unremitting pain presented to the emergency center, and was with leukocytosis but not much fever. The CT scan revealed the small bowel obstruction and with symptoms was taken to the OR and a segment of ischemic small bowel was encountered and resected.With allergies the consult was requested for ABX advice. Patient doing better and tolerates Ice chips without nausea. Denies fever or chills, no nausea or emesis, has chronic constipation. Review of Systems HEENT:Denies headache or acute visual change. Denies sinus or mouth discomforts. Denies neck stiffness or pain. Denies significant oral cavity pain. Denies difficulty on swallowing. Lungs: Denies significant shortness of breath, cough, sputum production, or hemoptysis. Cardiovascular: Denies significant shortness of breath, chest pain, chest wall pain, orthopnea, dyspnea on exertion, syncope Gastrointestinal:as per HPI Musculoskeletal: denies significant myalgias or arthralgias. No new joint swelling. Denies new back pain. Skin: Denies new rash or lesions. No new ulcers or wounds are related.. Neuro: Denies headache or visual change. Denies any new onset weakness or difficulty with ambulation. Denies falls or seizures. Psychiatric:Denies anxiety or depression. Endocrine: Denies significant fatigue, denies significant weight loss or weight gain. Past Medical History Past Medical History: Cancer, GERD/Reflux, Hyperlipidemia, Hypertension, Pneumonia, Sleep Apnea/CPAP/BIPAP Additional Past Medical History / Comment(s): skin ca. murmur, tremors(hands) .spinal stenosis History of Any Multi-Drug Resistant Organisms: None Reported Past Surgical History: Back Surgery, Tonsillectomy Additional Past Surgical History / Comment(s): nilam breast bx nilam mastectomy( prophyllactic-mom had hx breast ca), tendon repair lt ankle, hx shingles 20 years ago, upper dental bridge, l5-6 fusion, cataracts, colonscopies Past Anesthesia/Blood Transfusion Reactions: No Reported Reaction Additional Past Anesthesia/Blood Transfusion Reaction / Comm: had blood transfusion-no reaction Past Psychological History: No Psychological Hx Reported, Anxiety Additional Psychological History / Comment(s): . retired. no animals. no recent travel but has no illness with prior travel. reformed smoker no other habits related Smoking Status: Former smoker Past Alcohol Use History: Daily Additional Past Alcohol Use History / Comment(s): started smoking age 16 and quit age 35 smoked 1/2 ppd. drinks 5 ounces wine per day Past Drug Use History: None Reported - Past Family History Mother Family Medical History: Cancer Additional Family Medical History / Comment(s): breast ca Father Additional Family Medical History / Comment(s): born with heart defect- at age 49 Medications and Allergies Home Medications and Allergies Comment(s): Current Medications Enalaprilat (Vasotec) 1.25 mg IVP Q6HR PRN PRN Reason: SBP >160 Enoxaparin Sodium (Lovenox) 40 mg SQ DAILY [facility] Last Admin: 04/22/18 09:15 Dose: 40 mg Hydromorphone HCl (Dilaudid) 0.5 mg IVP Q3HR PRN PRN Reason: Moderate Pain Last Admin: 04/22/18 21:33 Dose: 0.5 mg Hydromorphone HCl (Dilaudid) 1 mg IVP Q3HR PRN PRN Reason: Severe Pain Last Admin: 04/22/18 06:17 Dose: 1 mg Sodium Chloride (Saline 0.9%) 1,000 mls @ 125 mls/hr IV .Q8H [facility] Last Admin: 04/22/18 17:52 Dose: 125 mls/hr Ertapenem 1 gm/ Sodium (Chloride) 50 mls @ 100 mls/hr IVPB DAILY@1900 [facility]; Protocol Lisinopril (Zestril) 10 mg PO DAILY [facility] Last Admin: 04/22/18 09:16 Dose: 10 mg Lorazepam (Ativan) 0.5 mg IV Q6HR PRN PRN Reason: Anxiety Metoclopramide HCl (Reglan) 10 mg IVP Q6H PRN PRN Reason: Nausea And Vomiting Naloxone HCl (Narcan) 0.2 mg IV Q2M PRN PRN Reason: Opioid Reversal Naloxone HCl (Narcan) 0.2 mg IV Q2M PRN PRN Reason: Opioid Reversal Ondansetron HCl (Zofran) 4 mg IVP Q8HR PRN PRN Reason: Nausea And Vomiting Last Admin: 04/22/18 12:14 Dose: 4 mg Pantoprazole Sodium (Protonix) 40 mg IVP DAILY [facility] Last Admin: 04/22/18 09:16 Dose: 40 mg Home Medications Medication Instructions Recorded Confirmed Type Celecoxib [CeleBREX] 200 mg PO DAILY 04/21/18 04/21/18 History Ergocalciferol (Vitamin D2) 50,000 unit PO Q14D 04/21/18 04/21/18 History [Vitamin D2] Lidocaine 5% Patch [Lidoderm] 1 patch TOPICAL DAILY 04/21/18 04/21/18 History Lisinopril [Zestril] 10 mg PO DAILY 04/21/18 04/21/18 History Oxybutynin Chloride 5 mg PO BID 04/21/18 04/21/18 History Simvastatin [Zocor] 10 mg PO HS 04/21/18 04/21/18 History Zolpidem [Ambien] 5 mg PO HS PRN 04/21/18 04/21/18 History Allergies Allergy/AdvReac Type Severity Reaction Status Date / Time Penicillins Allergy Unknown Unknown Verified 04/22/18 12:19 Physical Exam Vitals: Vital Signs Temp Pulse Resp BP BP Pulse Ox 04/22/18 18:10 104 H 114/72 94 L 04/22/18 17:55 103 H 112/71 92 L 04/22/18 17:40 110 H 112/63 93 L 04/22/18 17:25 100 112/69 92 L 04/22/18 17:10 97 113/70 93 L 04/22/18 16:55 100 123/78 95 04/22/18 16:40 98.7 F 100 18 125/74 95 04/22/18 16:14 96 14 125/60 94 L 04/22/18 16:00 100 18 04/22/18 15:59 99 14 139/65 95 04/22/18 15:44 103 H 18 145/65 96 04/22/18 15:29 97.3 F L 104 H 27 H 142/63 100 04/22/18 12:38 91 16 148/75 96 04/22/18 12:15 97.5 F L 85 18 132/68 96 04/22/18 08:00 86 16 04/22/18 05:49 97.3 F L 86 16 137/69 95 Intake and Output 04/22/18 04/22/18 04/23/18 14:59 22:59 06:59 Intake Total 450 1850 Output Total 50 150 Balance 400 1700 Intake: IV 450 1850 Output: Urine 50 100 Estimated Blood Loss 50 Other: Voiding Method Toilet Indwelling Catheter # Voids 2 Pleasant 77 year old woman uncomfortable but not miserable. HEENT: Anicteric conjunctiva are pink and moist nasal mucosa grossly intact without significant lesions, there is no thrush. Neck: The neck is supple without significant lymphadenopathy or thyromegaly. Lungs: Good bilateral air entry without significant crackles or wheezing. There is no significant bronchial sounds. There is no egophony or dullness. Heart: Regular rate and rhythm with an audible S1-S2, no S3 no S4. There is no significant murmur click or rub, PMI was nondisplaced. Abdomen: rare bowel sounds, abd tender to palpation,not rigid Extremities: The upper extremities have excellent pulses they are symmetric, no significant petechiae or telangiectasia. No splinter hemorrhages were noted. The lower extremities are free from significant edema. The peripheral pulses were 2+ and symmetric. Neuro: Awake alert oriented to person place and time. There are no acute new gross focal sensory motor deficits. Results CBC & Chem 7: 04/22/18 07:39 04/22/18 07:39 Labs: Abnormal Lab Results - Last 24 Hours (Table) 04/22/18 04/22/18 Range/Units 07:39 07:39 WBC 16.9 H (3.8-10.6) k/uL Hct 46.7 H (34.0-46.0) % Neutrophils # 14.9 H (1.3-7.7) k/uL Lymphocytes # 0.8 L (1.0-4.8) k/uL Monocytes # 1.1 H (0-1.0) k/uL Chloride 108 H (98-107) mmol/L Glucose 156 H (74-99) mg/dL Total Protein 5.6 L (6.3-8.2) g/dL Albumin 3.3 L (3.5-5.0) g/dL Microbiology - Last 24 Hours (Table) 04/21/18 10:39 Blood Culture - Preliminary Blood No Growth after 24 hours Laboratory Results WBC 16.9 k/uL (3.8-10.6) H 04/22/18 07:39 RBC 4.81 m/uL (3.80-5.40) 04/22/18 07:39 Hgb 14.5 gm/dL (11.4-16.0) 04/22/18 07:39 Hct 46.7 % (34.0-46.0) H 04/22/18 07:39 MCV 97.1 fL (80.0-100.0) 04/22/18 07:39 MCH 30.2 pg (25.0-35.0) 04/22/18 07:39 MCHC 31.1 g/dL (31.0-37.0) 04/22/18 07:39 RDW 12.9 % (11.5-15.5) 04/22/18 07:39 Plt Count 257 k/uL (150-450) 04/22/18 07:39 Neutrophils % 88 % 04/22/18 07:39 Lymphocytes % 5 % 04/22/18 07:39 Monocytes % 7 % 04/22/18 07:39 Eosinophils % 0 % 04/22/18 07:39 Basophils % 0 % 04/22/18 07:39 Neutrophils # 14.9 k/uL (1.3-7.7) H 04/22/18 07:39 Lymphocytes # 0.8 k/uL (1.0-4.8) L 04/22/18 07:39 Monocytes # 1.1 k/uL (0-1.0) H 04/22/18 07:39 Eosinophils # 0.0 k/uL (0-0.7) 04/22/18 07:39 Basophils # 0.0 k/uL (0-0.2) 04/22/18 07:39 PT 9.7 sec (9.0-12.0) 04/21/18 10:39 INR 1.0 (<1.2) 04/21/18 10:39 APTT 22.1 sec (22.0-30.0) 04/21/18 10:39 Sodium 140 mmol/L (137-145) 04/22/18 07:39 Potassium 4.5 mmol/L (3.5-5.1) 04/22/18 07:39 Chloride 108 mmol/L (98-107) H 04/22/18 07:39 Carbon Dioxide 25 mmol/L (22-30) 04/22/18 07:39 Anion Gap 7 mmol/L 04/22/18 07:39 BUN 16 mg/dL (7-17) 04/22/18 07:39 Creatinine 0.61 mg/dL (0.52-1.04) 04/22/18 07:39 Est GFR (CKD-EPI)AfAm >90 (>60 ml/min/1.73 sqM) 04/22/18 07:39 Est GFR (CKD-EPI)NonAf 88 (>60 ml/min/1.73 sqM) 04/22/18 07:39 Glucose 156 mg/dL (74-99) H 04/22/18 07:[address] Glu mg/dL 123 04/21/18 10:39 Hemoglobin A1c 5.9 % (4.0-6.0) 04/21/18 10:39 Plasma Lactic Acid [place] 1.0 mmol/L (0.7-2.0) 04/22/18 07:39 Calcium 8.8 mg/dL (8.4-10.2) 04/22/18 07:39 Total Bilirubin 0.5 mg/dL (0.2-1.3) 04/22/18 07:39 AST 16 U/L (14-36) 04/22/18 07:39 ALT 24 U/L (9-52) 04/22/18 07:39 Alkaline Phosphatase 70 U/L (38-126) 04/22/18 07:39 Troponin I <0.012 ng/mL (0.000-0.034) 04/21/18 10:39 Total Protein 5.6 g/dL (6.3-8.2) L 04/22/18 07:39 Albumin 3.3 g/dL (3.5-5.0) L 04/22/18 07:39 Amylase 70 U/L (30-110) 04/21/18 10:39 Lipase 71 U/L (23-300) 04/21/18 10:39 Urine Color Light Yellow 04/21/18 13:50 Urine Appearance Clear (Clear) 04/21/18 13:50 Urine pH 7.0 (5.0-8.0) 04/21/18 13:50 Ur Specific [place] 1.037 (1.001-1.035) H 04/21/18 13:50 Urine Protein Negative (Negative) 04/21/18 13:50 Urine Glucose (UA) 1+ (Negative) H 04/21/18 13:50 Urine Ketones 1+ (Negative) H 04/21/18 13:50 Urine Blood Negative (Negative) 04/21/18 13:50 Urine Nitrite Negative (Negative) 04/21/18 13:50 Urine Bilirubin Negative (Negative) 04/21/18 13:50 Urine Urobilinogen <2.0 mg/dL (<2.0) 04/21/18 13:50 Ur Leukocyte Esterase Negative (Negative) 04/21/18 13:50 Microbiology 04/21/18 10:39 Blood Blood Culture - Preliminary No Growth after 24 hours Assessment and Plan (1) Abdominal pain Current Visit: Yes Status: Acute Code(s): R10.9 - UNSPECIFIED ABDOMINAL PAIN SNOMED Code(s): 31776692 (2) Small bowel obstruction Narrative/Plan: 77 year old woman with history of spinal stenosis developed abdominal pain which worsened greatly over 20 Hours With this she presented to the emergency center for evaluation. The CT scan revealed evidence of small bowel obstruction. Subsequently she was taken to the operating room and there was evidence of a segment of ischemic small bowel which was resected. Antibiotic therapy was with some difficulty due to penicillin allergy and recent reaction to flagyl. Will use invanz at this time and monitor. Leukocytosis related to the abdominal process and ischemic colitis of small bowel. Pain is now well controlled. Current Visit: Yes Status: Acute Code(s): K56.609 - UNSP INTESTNL OBST, UNSP TO PARTIAL VERSUS COMPLETE OBST SNOMED Code(s): 095549000
[2018-04-23] MEDS: HYDROmorphone 1 MG/ML 1 ML SYRINGE IVP PRN ×5 (00:50→18:29)
[2018-04-23] MEDS: SODIUM CHLORIDE 0.9% 1,000 ML IV SCH ×3 (06:05→16:17)
[2018-04-23] MEDS: PANTOPRAZOLE 40 MG/10 ML VIAL IVP SCH (07:53)
[2018-04-23] MEDS: ENOXAPARIN 40 MG/0.4 ML SYRINGE SQ SCH (07:54)
[2018-04-23] MEDS: LISINOPRIL 10 MG TAB PO SCH (07:54)
[2018-04-23 08:43] LABS: Basophils % (A) 0 %; Eosinophils % (A) 1 %; HCT 34.8 % (34.0-46.0); Lymphocytes # (A) 1.2 k/uL (1.0-4.8); Lymphocytes % (A) 14 %; MCH 31.9 pg (25.0-35.0); MCHC 32.2 g/dL (31.0-37.0); MCV 99.1 fL (80.0-100.0); Mean Platelet Volume 7.5; Monocytes # (A) 0.7 k/uL (0-1.0); Monocytes % (A) 9 %; Neutrophils # (A) 6.3 k/uL (1.3-7.7); Neutrophils % (A) 75 %; Platelet Count 164 k/uL (150-450); RBC 3.51 m/uL (3.80-5.40); RDW 13.1 % (11.5-15.5); WBC 8.4 k/uL (3.8-10.6)
[2018-04-23 08:49] LABS: HGB 11.2 gm/dL (11.4-16.0)
[2018-04-23 09:02] LABS: Albumin 2.1 g/dL (3.5-5.0); Calcium 7.9 mg/dL (8.4-10.2); Potassium 4.2 mmol/L (3.5-5.1); Total Bilirubin 0.3 mg/dL (0.2-1.3)
--- NOTE | 2018-04-23 13:28 | P.PN ---
Subjective Progress Note Date: 04/23/18 This is a pleasant 77-year-old female patient of Dr John, has underlying history of osteoarthritis, hypertension, hyperlipidemia, lumbar disc disease with spinal fusion requiring prophylactic mastectomy patient presents emergency room secondary to abdominal pain of 20 hours duration, this is later followed by nausea and vomiting, no fever no chills, no sick contacts. 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 Possible transition point in the right mid abdomen concerning for early high-grade small bowel obstruction. There is also mild upper abdominal ascites. Patient will be kept nothing by mouth, NG tube to be placed, consult with Dr. Barajas her primary general surgeon 04/22: White count 16.9, hemoglobin 14.5. Blood sugar 164-156. Patient remains afebrile. Vital signs are stable. Blood pressure is controlled and heart rate is within normal limits. Pulse ox 95% on room air. Repeat abdominal x-ray shows correlate for fecal stasis. Patient has been seen and followed by Dr. Barajas with plan for diagnostic laparoscopy. 04/23: Patient underwent diagnostic laparoscopic, laparotomy with small bowel resection, incidental appendectomy for small bowel obstruction with ischemic loop of bowel secondary to adhesive band. Dr. Barajas at a consult with Dr. Mcginnis for antibiotic recommendations Patient has been seen by Dr. Mcginnis and patient's antibiotics changed to Invanz. Temperature max 100.3, heart rate is improved, pulse ox 95% on room air. Blood pressure stable. WBC count is down to 8.4 and hemoglobin is stable right now at 11.2. Patient is on ice chips only. No NG tube in place. She is tolerating ice chips without any problems. Abdominal pain is improved. Objective - Vital Signs Vital signs: Vital Signs Temp 98.2 F 04/23/18 09:27 Pulse 98 04/23/18 07:16 Resp 18 08/29/18 07:16 BP 132/66 04/23/18 07:16 Pulse Ox 95 04/23/18 07:16 Intake & Output 04/22/18 04/23/18 04/23/18 18:59 06:59 18:59 Intake Total 2300 Output Total 200 100 Balance 2100 -100 Intake: IV 2300 Output: Urine 150 100 Estimated Blood Loss 50 Other: Voiding Method Indwelling Catheter Indwelling Catheter # Voids 2 - Exam General appearance: cooperative - EENT Eyes: anicteric sclerae, PERRLA, poor dentition, normal appearance ENT: NA/AT, normal oropharynx - Neck Neck: no lymphadenopathy, normal ROM, no other, no rigidity, no stridor, no thyromegaly - Respiratory Respiratory: bilateral: CTA, negative: diminished, dullness, rales, rhonchi - Cardiovascular Rhythm: regular Heart sounds: normal: S1, S2 Abnormal Heart Sounds: no systolic murmur, no diastolic murmur, no rub, no S3 Gallop, no S4 Gallop, no click, no other - Gastrointestinal General gastrointestinal: Hypoactive bowel sounds, soft Localized gastrointestinal: tender: diffuse - Integumentary Integumentary: decreased turgor, normal - Neurologic Neurologic: CNII-XII intact - Musculoskeletal Musculoskeletal: gait normal, strength equal bilaterally - Psychiatric Psychiatric: A&O x's 3, appropriate affect, intact judgment & insight - Labs CBC & Chem 7: 04/23/18 08:00 04/23/18 08:00 Labs: Abnormal Lab Results - Last 24 Hours (Table) 04/23/18 04/23/18 Range/Units 08:00 08:00 RBC 3.51 L (3.80-5.40) m/uL Hgb 11.2 L D (11.4-16.0) gm/dL Chloride 109 H (98-107) mmol/L Calcium 7.9 L (8.4-10.2) mg/dL Total Protein 4.0 L (6.3-8.2) g/dL Albumin 2.1 L (3.5-5.0) g/dL Microbiology - Last 24 Hours (Table) 04/21/18 10:39 Blood Culture - Preliminary Blood No Growth after 24 hours Assessment and Plan Plan: 1. Acute abdominal pain with suspected high-grade small bowel obstruction status post diagnostic laparoscopic, laparotomy with small bowel resection, incidental appendectomy for small bowel obstruction with ischemic loop of bowel secondary to adhesive band. Dr. Barajas at a consult with Dr. Mcginnis for antibiotic recommendations Patient has been seen by Dr. Mcginnis and patient's antibiotics changed to Invanz. Continue nothing by mouth except ice chips, IV opiates for pain, antiemetics, IV hydration 2. Hypertension, on lisinopril, while nothing by mouth, Vasotec 1.25 mg IV push every 6 hours for systolic blood pressure greater than 160. 3. Hyperlipidemia, Zocor on hold 4. Osteoarthritis, Celebrex on hold 5. Leukocytosis secondary to abdominal pathology, 6. CKD stage I, GFR is over 90. Continue to monitor 7. Impaired random blood sugars, continue to monitor. Sugars, A1c to be obtained 8. Mild dehydration with mild azotemia and ketonuria, IV hydration 9. GI prophylaxis with IV PPI 10. DVT prophylaxis, Lovenox 40 every 24 hours Discharge plan: Return home Impression and plan of care have been directed as dictated by the signing physician. Vanita Jacinto nurse practitioner acting as scribe for signing physician.
--- NOTE | 2018-04-23 13:49 | P.PN ---
<Lizbet Reid M - Last Filed: 04/23/18 13:34> Subjective Progress Note Date: 04/23/18 77-year-old female seen at bedside this morning reports no nausea vomiting states pain medication effective for pain control. Surgical dressing dry. Did note the temp this morning 100.3. Heart rate in 90s to 110 white count down 8.4 Diagnostic laparoscopy, laparotomy with small bowel resection, incidental appendectomy for a small bowel obstruction with ischemic loop of bowel secondary to an adhesive band Objective - Vital Signs Vital signs: Vital Signs Temp 98.2 F 04/23/18 09:27 Pulse 98 04/23/18 07:16 Resp 18 04/23/18 07:16 BP 132/66 04/23/18 07:16 Pulse Ox 95 04/23/18 07:16 Intake & Output 04/22/18 04/23/18 04/23/18 18:59 06:59 18:59 Intake Total 2300 Output Total 200 100 Balance 2100 -100 Intake: IV 2300 Output: Urine 150 100 Estimated Blood Loss 50 Other: Voiding Method Indwelling Catheter Indwelling Catheter # Voids 2 - Exam Physical exam Resting in bed alert and oriented 3 no acute distress Lungs clear adequate air movement on room air Heart S1-S2 audible regular Abdomen surgical dressing site dry indwelling Peña catheter in place a few hypoactive bowel tones no nausea no vomiting Extremities no edema - Labs CBC & Chem 7: 04/23/18 08:00 04/23/18 08:00 Labs: Abnormal Lab Results - Last 24 Hours (Table) 04/23/18 04/23/18 Range/Units 08:00 08:00 RBC 3.51 L (3.80-5.40) m/uL Hgb 11.2 L D (11.4-16.0) gm/dL Chloride 109 H (98-107) mmol/L Calcium 7.9 L (8.4-10.2) mg/dL Total Protein 4.0 L (6.3-8.2) g/dL Albumin 2.1 L (3.5-5.0) g/dL Microbiology - Last 24 Hours (Table) 04/21/18 10:39 Blood Culture - Preliminary Blood No Growth after 48 hours Assessment and Plan Assessment: Impression Present on admission acute abdominal pain suspected high-grade small bowel obstruction Small bowel obstruction with ischemic loop of bowel secondary to adhesive band Diagnostic laparoscopy, laparotomy with small bowel resection, incidental appendectomy done on april 23 Leukocytosis secondary to abdominal pathology Osteoarthritis Hyperlipidemia Present on admission mild dehydration with mild azotemia and ketonuria CKD stage I, GFR is over 90 Plan Continue postop surgical care Increase activity Continue recommendations by infectious disease Pain control Remove indwelling Peña catheter DVT and GI prophylaxis The above impression and plan of care have been discussed and directed by signing physician. Lizbet Reid nurse practitioner acting as scribe for signing physician. <Juan Barajas - Last Filed: 04/23/18 22:25> Objective - Vital Signs Vital signs: Vital Signs Temp 99.2 F 04/23/18 15:15 Pulse 98 04/23/18 14:10 Resp 18 04/23/18 14:10 BP 138/63 04/23/18 14:10 Pulse Ox 95 04/23/18 14:10 Intake & Output 04/23/18 04/23/18 04/24/18 06:59 18:59 06:59 Output Total 100 400 Balance -100 -400 Output: Urine 100 400 Other: Voiding Method Indwelling Catheter # Voids 1 - Labs CBC & Chem 7: 04/23/18 08:00 04/23/18 08:00 Labs: Abnormal Lab Results - Last 24 Hours (Table) 04/23/18 04/23/18 Range/Units 08:00 08:00 RBC 3.51 L (3.80-5.40) m/uL Hgb 11.2 L D (11.4-16.0) gm/dL Chloride 109 H (98-107) mmol/L Calcium 7.9 L (8.4-10.2) mg/dL Total Protein 4.0 L (6.3-8.2) g/dL Albumin 2.1 L (3.5-5.0) g/dL Microbiology - Last 24 Hours (Table) 04/21/18 10:39 Blood Culture - Preliminary Blood No Growth after 48 hours Assessment and Plan (1) Abdominal pain Narrative/Plan: As above. Patient doing well today. Did have a low-grade fever. No bowel function. Pain remains improved. Labs noted. Keep nothing by mouth for now. Current Visit: Yes Status: Acute Code(s): R10.9 - UNSPECIFIED ABDOMINAL PAIN SNOMED Code(s): 12127488
[2018-04-23] MEDS: ERTAPENEM 1 GM in SODIUM CHLORIDE 0.9% 50 ML IVPB SCH (18:19)
--- NOTE | 2018-04-24 00:04 | P.PN ---
Subjective Progress Note Date: 04/23/18 richy 77-year-old female presents to Hospital with 20 hours of increasing abdominal pain. she has an extensive past medical history and consequently with the unremitting pain presented to the emergency center, and was with leukocytosis but not much fever. The CT scan revealed the small bowel obstruction and with symptoms was taken to the OR and a segment of ischemic small bowel was encountered and resected.With allergies the consult was requested for ABX advice. Patient doing better and tolerates Ice chips without nausea. Denies fever or chills, no nausea or emesis, has chronic constipation. 04/23/2018 reveals the patient to be having some improvement. Still has significant abdominal pain with attempts to move but he has been able to get to the bedside commode. Overall is feeling slightly better. Denies high-grade fevers chills or rigors. Ice chips only Objective - Vital Signs Vital signs: Vital Signs Temp 99.2 F 04/23/18 15:15 Pulse 98 04/23/18 14:10 Resp 18 04/23/18 14:10 BP 138/63 04/23/18 14:10 Pulse Ox 95 04/23/18 14:10 Intake & Output 04/23/18 04/23/18 04/24/18 06:59 18:59 06:59 Output Total 100 400 Balance -100 -400 Output: Urine 100 400 Other: Voiding Method Indwelling Catheter # Voids 1 - Exam Richy 77 year old woman uncomfortable but not miserable. HEENT: Anicteric conjunctiva are pink and moist nasal mucosa grossly intact without significant lesions, there is no thrush. Neck: The neck is supple without significant lymphadenopathy or thyromegaly. Lungs: Good bilateral air entry without significant crackles or wheezing. There is no significant bronchial sounds. There is no egophony or dullness. Heart: Regular rate and rhythm with an audible S1-S2, no S3 no S4. There is no significant murmur click or rub, PMI was nondisplaced. Abdomen: rare bowel sounds, abd tender to palpation,not rigid Extremities: The upper extremities have excellent pulses they are symmetric, no significant petechiae or telangiectasia. No splinter hemorrhages were noted. The lower extremities are free from significant edema. The peripheral pulses were 2+ and symmetric. Neuro: Awake alert oriented to person place and time. There are no acute new gross focal sensory motor deficits. - Labs CBC & Chem 7: 04/23/18 08:00 04/23/18 08:00 Labs: Abnormal Lab Results - Last 24 Hours (Table) 04/23/18 04/23/18 Range/Units 08:00 08:00 RBC 3.51 L (3.80-5.40) m/uL Hgb 11.2 L D (11.4-16.0) gm/dL Chloride 109 H (98-107) mmol/L Calcium 7.9 L (8.4-10.2) mg/dL Total Protein 4.0 L (6.3-8.2) g/dL Albumin 2.1 L (3.5-5.0) g/dL Microbiology - Last 24 Hours (Table) 04/21/18 10:39 Blood Culture - Preliminary Blood No Growth after 48 hours Laboratory Results WBC 8.4 k/uL (3.8-10.6) 04/23/18 08:00 RBC 3.51 m/uL (3.80-5.40) L 04/23/18 08:00 Hgb 11.2 gm/dL (11.4-16.0) L D 04/23/18 08:00 Hct 34.8 % (34.0-46.0) 04/23/18 08:00 MCV 99.1 fL (80.0-100.0) 04/23/18 08:00 MCH 31.9 pg (25.0-35.0) 04/23/18 08:00 MCHC 32.2 g/dL (31.0-37.0) 04/23/18 08:00 RDW 13.1 % (11.5-15.5) 04/23/18 08:00 Plt Count 164 k/uL (150-450) 04/23/18 08:00 Neutrophils % 75 % 04/23/18 08:00 Lymphocytes % 14 % 04/23/18 08:00 Monocytes % 9 % 04/23/18 08:00 Eosinophils % 1 % 04/23/18 08:00 Basophils % 0 % 04/23/18 08:00 Neutrophils # 6.3 k/uL (1.3-7.7) 04/23/18 08:00 Lymphocytes # 1.2 k/uL (1.0-4.8) 04/23/18 08:00 Monocytes # 0.7 k/uL (0-1.0) 04/23/18 08:00 Eosinophils # 0.0 k/uL (0-0.7) 04/23/18 08:00 Basophils # 0.0 k/uL (0-0.2) 04/23/18 08:00 PT 9.7 sec (9.0-12.0) 04/21/18 10:39 INR 1.0 (<1.2) 04/21/18 10:39 APTT 22.1 sec (22.0-30.0) 04/21/18 10:39 Sodium 140 mmol/L (137-145) 04/23/18 08:00 Potassium 4.2 mmol/L (3.5-5.1) 04/23/18 08:00 Chloride 109 mmol/L (98-107) H 04/23/18 08:00 Carbon Dioxide 29 mmol/L (22-30) 04/23/18 08:00 Anion Gap 2 mmol/L 04/23/18 08:00 BUN 15 mg/dL (7-17) 04/23/18 08:00 Creatinine 0.76 mg/dL (0.52-1.04) 04/23/18 08:00 Est GFR (CKD-EPI)AfAm 88 (>60 ml/min/1.73 sqM) 04/23/18 08:00 Est GFR (CKD-EPI)NonAf 76 (>60 ml/min/1.73 sqM) 04/23/18 08:00 Glucose 97 mg/dL (74-99) 04/23/18 08:[address] Glu mg/dL 123 04/21/18 10:39 Hemoglobin A1c 5.9 % (4.0-6.0) 04/21/18 10:39 Plasma Lactic Acid Gregg 1.0 mmol/L (0.7-2.0) 04/22/18 07:39 Calcium 7.9 mg/dL (8.4-10.2) L 04/23/18 08:00 Total Bilirubin 0.3 mg/dL (0.2-1.3) 04/23/18 08:00 AST 21 U/L (14-36) 04/23/18 08:00 ALT 24 U/L (9-52) 04/23/18 08:00 Alkaline Phosphatase 48 U/L (38-126) 04/23/18 08:00 Troponin I <0.012 ng/mL (0.000-0.034) 04/21/18 10:39 Total Protein 4.0 g/dL (6.3-8.2) L 04/23/18 08:00 Albumin 2.1 g/dL (3.5-5.0) L 04/23/18 08:00 Amylase 70 U/L (30-110) 04/21/18 10:39 Lipase 71 U/L (23-300) 04/21/18 10:39 Urine Color Light Yellow 04/21/18 13:50 Urine Appearance Clear (Clear) 04/21/18 13:50 Urine pH 7.0 (5.0-8.0) 04/21/18 13:50 Ur Specific [place] 1.037 (1.001-1.035) H 04/21/18 13:50 Urine Protein Negative (Negative) 04/21/18 13:50 Urine Glucose (UA) 1+ (Negative) H 04/21/18 13:50 Urine Ketones 1+ (Negative) H 04/21/18 13:50 Urine Blood Negative (Negative) 04/21/18 13:50 Urine Nitrite Negative (Negative) 04/21/18 13:50 Urine Bilirubin Negative (Negative) 04/21/18 13:50 Urine Urobilinogen <2.0 mg/dL (<2.0) 04/21/18 13:50 Ur Leukocyte Esterase Negative (Negative) 04/21/18 13:50 Microbiology 04/21/18 10:39 Blood Blood Culture - Preliminary No Growth after 48 hours Assessment and Plan (1) Abdominal pain Current Visit: Yes Status: Acute Code(s): R10.9 - UNSPECIFIED ABDOMINAL PAIN SNOMED Code(s): 07118210 (2) Small bowel obstruction Narrative/Plan: 77 year old woman with history of spinal stenosis developed abdominal pain which worsened greatly over 20 Hours With this she presented to the emergency center for evaluation. The CT scan revealed evidence of small bowel obstruction. Subsequently she was taken to the operating room and there was evidence of a segment of ischemic small bowel which was resected. Antibiotic therapy was with some difficulty due to penicillin allergy and recent reaction to flagyl. Will use invanz at this time and monitor. Leukocytosis related to the abdominal process and ischemic colitis of small bowel. Pain is now well controlled. April 14 patient is having improvement with the postoperative timeframe. She is eating some ice chips without nausea or emesis. Tolerating antibiotic therapy within Invanz without difficulties. She has no rash or fever. Await return of her gastrointestinal function and then will be able to determine her course of antibiotic therapy. Current Visit: Yes Status: Acute Code(s): K56.609 - UNSP INTESTNL OBST, UNSP TO PARTIAL VERSUS COMPLETE OBST SNOMED Code(s): 126463979
[2018-04-24] MEDS: HYDROmorphone 1 MG/ML 1 ML SYRINGE IVP PRN ×5 (00:32→22:11)
[2018-04-24] MEDS: SODIUM CHLORIDE 0.9% 1,000 ML IV SCH ×3 (00:42→16:05)
[2018-04-24] MEDS: ENOXAPARIN 40 MG/0.4 ML SYRINGE SQ SCH (07:44)
[2018-04-24] MEDS: LISINOPRIL 10 MG TAB PO SCH (07:44)
[2018-04-24] MEDS: PANTOPRAZOLE 40 MG/10 ML VIAL IVP SCH (07:44)
[2018-04-24 08:39] LABS: Basophils % (A) 1 %; Eosinophils # (A) 0.3 k/uL (0-0.7); Eosinophils % (A) 4 %; HCT 32.5 % (34.0-46.0); HGB 10.2 gm/dL (11.4-16.0); Lymphocytes # (A) 1.1 k/uL (1.0-4.8); Lymphocytes % (A) 17 %; MCH 31.3 pg (25.0-35.0); MCHC 31.5 g/dL (31.0-37.0); MCV 99.4 fL (80.0-100.0); Mean Platelet Volume 7.3; Monocytes # (A) 0.5 k/uL (0-1.0); Monocytes % (A) 8 %; Neutrophils # (A) 4.2 k/uL (1.3-7.7); Neutrophils % (A) 69 %; Platelet Count 163 k/uL (150-450); RBC 3.27 m/uL (3.80-5.40); RDW 12.9 % (11.5-15.5); WBC 6.2 k/uL (3.8-10.6)
--- NOTE | 2018-04-24 11:48 | P.PN ---
<Lizbet Reid - Last Filed: 04/24/18 11:41> Subjective Progress Note Date: 04/24/18 77-year-old female seen sitting up in bed. Patient currently is nothing by mouth states is not passing gas no stool urinating no difficulty surgical dressings dry. Patient stating less pain with movement this morning pain medication effective. Pain control Diagnostic laparoscopy, laparotomy with small bowel resection, incidental appendectomy for a small bowel obstruction with ischemic loop of bowel secondary to an adhesive band done on April 22 Objective - Vital Signs Vital signs: Vital Signs Temp 98.3 F 04/24/18 07:41 Pulse 86 04/24/18 07:41 Resp 16 04/24/18 07:41 BP 137/75 04/24/18 07:41 Pulse Ox 93 L 04/24/18 07:41 Intake & Output 04/23/18 04/24/18 04/24/18 18:59 06:59 18:59 Intake Total 0 Output Total 400 Balance -400 0 Intake: Oral 0 Output: Urine 400 Other: Voiding Method Indwelling Catheter # Voids 1 2 # Bowel Movements 0 - Exam Physical exam Sitting up in bed talkative alert and oriented 3 no acute distress Lungs clear adequate air movement on room air no cough noted no shortness of breath Heart S1-S2 audible regular Abdomen surgical dressing site dry abdominal binder in place urinating no difficulty less abdominal pain nothing by mouth a few hypoactive bowel tones no nausea no vomiting Extremities no edema - Labs CBC & Chem 7: 04/24/18 08:00 04/23/18 08:00 Labs: Abnormal Lab Results - Last 24 Hours (Table) 04/24/18 Range/Units 08:00 RBC 3.27 L (3.80-5.40) m/uL Hgb 10.2 L (11.4-16.0) gm/dL Hct 32.5 L (34.0-46.0) % Microbiology - Last 24 Hours (Table) 04/21/18 10:39 Blood Culture - Preliminary Blood No Growth after 48 hours Assessment and Plan Assessment: Impression Present on admission acute abdominal pain suspected high-grade small bowel obstruction Small bowel obstruction with ischemic loop of bowel secondary to adhesive band Diagnostic laparoscopy, laparotomy with small bowel resection, incidental appendectomy done on april 23 Leukocytosis secondary to abdominal pathology ischemic colitis of the bowel Osteoarthritis Hyperlipidemia Present on admission mild dehydration with mild azotemia and ketonuria CKD stage I, GFR is over 90 Plan Continue postop surgical care Increase activity Continue recommendations by infectious disease Pain control Keep nothing by mouth until bowel function resume DVT and GI prophylaxis IV antibiotics per infectious disease invanz IV fluid as ordered The above impression and plan of care have been discussed and directed by signing physician. Lizbet Reid nurse practitioner acting as scribe for signing physician. <Juan Barajas - Last Filed: 04/24/18 16:51> Objective - Vital Signs Vital signs: Vital Signs Temp 98.9 F 04/24/18 14:21 Pulse 93 04/24/18 14:21 Resp 16 04/24/18 14:21 BP 121/81 04/24/18 14:21 Pulse Ox 94 L 04/24/18 14:21 Intake & Output 04/23/18 04/24/18 04/24/18 18:59 06:59 18:59 Intake Total 0 Output Total 400 Balance -400 0 Weight 56.699 kg Intake: Oral 0 Output: Urine 400 Other: Voiding Method Indwelling Catheter # Voids 1 2 1 # Bowel Movements 0 - Labs CBC & Chem 7: 04/24/18 08:00 04/23/18 08:00 Labs: Abnormal Lab Results - Last 24 Hours (Table) 04/24/18 Range/Units 08:00 RBC 3.27 L (3.80-5.40) m/uL Hgb 10.2 L (11.4-16.0) gm/dL Hct 32.5 L (34.0-46.0) % Microbiology - Last 24 Hours (Table) 04/21/18 10:39 Blood Culture - Preliminary Blood No Growth after 72 hours Assessment and Plan Assessment: As above. Ileus persisting. No bowel function. Pain gradually improving. Patient ambulating more today. We'll start Dulcolax suppositories daily as the patient had very impressive firm stools throughout the colon during recent laparotomy. Continue nothing by mouth except for ice chips. (1) Abdominal pain Current Visit: Yes Status: Acute Code(s): R10.9 - UNSPECIFIED ABDOMINAL PAIN SNOMED Code(s): 93886801
--- NOTE | 2018-04-24 15:08 | P.PN ---
Subjective Progress Note Date: 04/24/18 This is a pleasant 77-year-old female patient of Dr John, has underlying history of osteoarthritis, hypertension, hyperlipidemia, lumbar disc disease with spinal fusion requiring prophylactic mastectomy patient presents emergency room secondary to abdominal pain of 20 hours duration, this is later followed by nausea and vomiting, no fever no chills, no sick contacts. 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 Possible transition point in the right mid abdomen concerning for early high-grade small bowel obstruction. There is also mild upper abdominal ascites. Patient will be kept nothing by mouth, NG tube to be placed, consult with Dr. Barajas her primary general surgeon 04/22: White count 16.9, hemoglobin 14.5. Blood sugar 164-156. Patient remains afebrile. Vital signs are stable. Blood pressure is controlled and heart rate is within normal limits. Pulse ox 95% on room air. Repeat abdominal x-ray shows correlate for fecal stasis. Patient has been seen and followed by Dr. Barajas with plan for diagnostic laparoscopy. 04/23: Patient underwent diagnostic laparoscopic, laparotomy with small bowel resection, incidental appendectomy for small bowel obstruction with ischemic loop of bowel secondary to adhesive band. Dr. Barajas at a consult with Dr. Mcginnis for antibiotic recommendations Patient has been seen by Dr. Mcginnis and patient's antibiotics changed to Invanz. Temperature max 100.3, heart rate is improved, pulse ox 95% on room air. Blood pressure stable. WBC count is down to 8.4 and hemoglobin is stable right now at 11.2. Patient is on ice chips only. No NG tube in place. She is tolerating ice chips without any problems. Abdominal pain is improved. 04/24: WBC count remains normal at 6.2, hemoglobin is 10.2. Temperature max 100.1 last afternoon. Patient continues to tolerate ice chips without any difficulty. She states her abdomen is less bloated. She has not been passing gas. She has been able to really back and forth to the bathroom and in the hallway as well and doing well with that. She slept well last night. At this moment, patient denies any abdominal pain. Objective - Vital Signs Vital signs: Vital Signs Temp 98.3 F 04/24/18 07:41 Pulse 86 04/24/18 07:41 Resp 16 04/24/18 07:41 BP 137/75 04/24/18 07:41 Pulse Ox 93 L 04/24/18 07:41 Intake & Output 04/23/18 04/24/18 04/24/18 18:59 06:59 18:59 Intake Total 0 Output Total 400 Balance -400 0 Intake: Oral 0 Output: Urine 400 Other: Voiding Method Indwelling Catheter # Voids 1 2 # Bowel Movements 0 - Exam General appearance: cooperative - EENT Eyes: anicteric sclerae, PERRLA, poor dentition, normal appearance ENT: NA/AT, normal oropharynx - Neck Neck: no lymphadenopathy, normal ROM, no other, no rigidity, no stridor, no thyromegaly - Respiratory Respiratory: bilateral: CTA, negative: diminished, dullness, rales, rhonchi - Cardiovascular Rhythm: regular Heart sounds: normal: S1, S2 Abnormal Heart Sounds: no systolic murmur, no diastolic murmur, no rub, no S3 Gallop, no S4 Gallop, no click, no other - Gastrointestinal General gastrointestinal: Hypoactive bowel sounds, soft Localized gastrointestinal: nontender: diffuse - Integumentary Integumentary: decreased turgor, normal - Neurologic Neurologic: CNII-XII intact - Musculoskeletal Musculoskeletal: gait normal, strength equal bilaterally - Psychiatric Psychiatric: A&O x's 3, appropriate affect, intact judgment & insight - Labs CBC & Chem 7: 04/24/18 08:00 04/23/18 08:00 Labs: Abnormal Lab Results - Last 24 Hours (Table) 04/24/18 Range/Units 08:00 RBC 3.27 L (3.80-5.40) m/uL Hgb 10.2 L (11.4-16.0) gm/dL Hct 32.5 L (34.0-46.0) % Microbiology - Last 24 Hours (Table) 04/21/18 10:39 Blood Culture - Preliminary Blood No Growth after 48 hours Assessment and Plan Plan: 1. Acute abdominal pain with suspected high-grade small bowel obstruction status post diagnostic laparoscopic, laparotomy with small bowel resection, incidental appendectomy for small bowel obstruction with ischemic loop of bowel secondary to adhesive band. Dr. Barajas at a consult with Dr. Mcginnis for antibiotic recommendations Patient has been seen by Dr. Mcginnis and patient's antibiotics changed to Invanz. Continue nothing by mouth except ice chips, IV opiates for pain, antiemetics, IV hydration 2. Hypertension, on lisinopril, while nothing by mouth, Vasotec 1.25 mg IV push every 6 hours for systolic blood pressure greater than 160. 3. Hyperlipidemia, Zocor on hold 4. Osteoarthritis, Celebrex on hold 5. Leukocytosis secondary to abdominal pathology, 6. CKD stage I, GFR is over 90. Continue to monitor 7. Impaired random blood sugars, continue to monitor. Sugars, A1c to be obtained 8. Mild dehydration with mild azotemia and ketonuria, IV hydration 9. GI prophylaxis with IV PPI 10. DVT prophylaxis, Lovenox 40 every 24 hours Discharge plan: Return home Impression and plan of care have been directed as dictated by the signing physician. Vanita Jacinto nurse practitioner acting as scribe for signing physician.
[2018-04-24 15:11] VITALS: BMI 23.6
[2018-04-24] MEDS: BISACODYL 10 MG SUPP RECTAL SCH (17:12)
[2018-04-24] MEDS: ERTAPENEM 1 GM in SODIUM CHLORIDE 0.9% 50 ML IVPB SCH (17:57)
[2018-04-25] MEDS: SODIUM CHLORIDE 0.9% 1,000 ML IV SCH ×4 (01:55→23:04)
[2018-04-25] MEDS: LORazepam 2 MG/ML INJ IV PRN (03:39)
[2018-04-25] MEDS: BISACODYL 10 MG SUPP RECTAL SCH (07:44)
[2018-04-25] MEDS: ENOXAPARIN 40 MG/0.4 ML SYRINGE SQ SCH (07:44)
[2018-04-25] MEDS: PANTOPRAZOLE 40 MG/10 ML VIAL IVP SCH (07:44)
[2018-04-25] MEDS: LISINOPRIL 10 MG TAB PO SCH (07:45)
[2018-04-25] MEDS: HYDROcodone/APAP 7.5-325MG 1 EACH TAB PO PRN ×3 (11:07→23:16)
--- NOTE | 2018-04-25 11:45 | P.PN ---
Subjective Progress Note Date: 04/25/18 Principal diagnosis: Abdominal pain Patient doing well today. Pain is mild. She is ambulating. She did have 2 bowel movements. Denies nausea or vomiting. No bloating. Objective - Vital Signs Vital signs: Vital Signs Temp 98.3 F 04/25/18 07:22 Pulse 84 04/25/18 07:22 Resp 16 04/25/18 08:00 BP 143/77 04/25/18 07:22 Pulse Ox 93 L 04/25/18 07:22 Intake & Output 04/24/18 04/25/18 04/25/18 18:59 06:59 18:59 Intake Total 0 Balance 0 Weight 56.699 kg Intake: Oral 0 Other: Voiding Method Toilet # Voids 1 1 # Bowel Movements 0 - Exam Abdomen: Soft, nondistended, dressing clean and dry, mild tenderness - Labs CBC & Chem 7: 04/24/18 08:00 04/23/18 08:00 Labs: Microbiology - Last 24 Hours (Table) 04/21/18 10:39 Blood Culture - Preliminary Blood No Growth after 72 hours Assessment and Plan (1) Abdominal pain Narrative/Plan: Start clear liquids. Decrease IV fluid rate. Continue antibiotics. Continue increasing activity. Current Visit: Yes Status: Acute Code(s): R10.9 - UNSPECIFIED ABDOMINAL PAIN SNOMED Code(s): 49396771
--- NOTE | 2018-04-25 13:08 | P.PN ---
Subjective Progress Note Date: 04/25/18 This is a pleasant 77-year-old female patient of Dr John, has underlying history of osteoarthritis, hypertension, hyperlipidemia, lumbar disc disease with spinal fusion requiring prophylactic mastectomy patient presents emergency room secondary to abdominal pain of 20 hours duration, this is later followed by nausea and vomiting, no fever no chills, no sick contacts. 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 Possible transition point in the right mid abdomen concerning for early high-grade small bowel obstruction. There is also mild upper abdominal ascites. Patient will be kept nothing by mouth, NG tube to be placed, consult with Dr. Barajas her primary general surgeon 04/22: White count 16.9, hemoglobin 14.5. Blood sugar 164-156. Patient remains afebrile. Vital signs are stable. Blood pressure is controlled and heart rate is within normal limits. Pulse ox 95% on room air. Repeat abdominal x-ray shows correlate for fecal stasis. Patient has been seen and followed by Dr. Barajas with plan for diagnostic laparoscopy. 04/23: Patient underwent diagnostic laparoscopic, laparotomy with small bowel resection, incidental appendectomy for small bowel obstruction with ischemic loop of bowel secondary to adhesive band. Dr. Barajas at a consult with Dr. Mcginnis for antibiotic recommendations Patient has been seen by Dr. Mcginnis and patient's antibiotics changed to Invanz. Temperature max 100.3, heart rate is improved, pulse ox 95% on room air. Blood pressure stable. WBC count is down to 8.4 and hemoglobin is stable right now at 11.2. Patient is on ice chips only. No NG tube in place. She is tolerating ice chips without any problems. Abdominal pain is improved. 04/24: WBC count remains normal at 6.2, hemoglobin is 10.2. Temperature max 100.1 last afternoon. Patient continues to tolerate ice chips without any difficulty. She states her abdomen is less bloated. She has not been passing gas. She has been able to really back and forth to the bathroom and in the hallway as well and doing well with that. She slept well last night. At this moment, patient denies any abdominal pain. 04/25: Shortness ambulating well. She has had bowel movements and passing gas. Dr. Barajas has advanced her diet to clear liquids for lunch today. Ensure clear will be added for moderate protein calorie malnutrition due to illness and nothing by mouth status. Anticipate she will be ready for discharge this weekend. Objective - Vital Signs Vital signs: Vital Signs Temp 98.3 F 04/25/18 07:22 Pulse 84 04/25/18 07:22 Resp 16 04/25/18 08:00 BP 143/77 04/25/18 07:22 Pulse Ox 93 L 04/25/18 07:22 Intake & Output 04/24/18 04/25/18 04/25/18 18:59 06:59 18:59 Intake Total 0 Balance 0 Weight 56.699 kg Intake: Oral 0 Other: Voiding Method Toilet # Voids 1 1 # Bowel Movements 0 - Exam General appearance: cooperative - EENT Eyes: anicteric sclerae, PERRLA, poor dentition, normal appearance ENT: NA/AT, normal oropharynx - Neck Neck: no lymphadenopathy, normal ROM, no other, no rigidity, no stridor, no thyromegaly - Respiratory Respiratory: bilateral: CTA, negative: diminished, dullness, rales, rhonchi - Cardiovascular Rhythm: regular Heart sounds: normal: S1, S2 Abnormal Heart Sounds: no systolic murmur, no diastolic murmur, no rub, no S3 Gallop, no S4 Gallop, no click, no other - Gastrointestinal General gastrointestinal: Hypoactive bowel sounds, soft Localized gastrointestinal: nontender - Integumentary Integumentary: decreased turgor, normal - Neurologic Neurologic: CNII-XII intact - Musculoskeletal Musculoskeletal: gait normal, strength equal bilaterally - Psychiatric Psychiatric: A&O x's 3, appropriate affect, intact judgment & insight - Labs CBC & Chem 7: 04/24/18 08:00 04/23/18 08:00 Labs: Microbiology - Last 24 Hours (Table) 04/21/18 10:39 Blood Culture - Preliminary Blood No Growth after 72 hours Assessment and Plan Plan: 1. Acute abdominal pain with suspected high-grade small bowel obstruction status post diagnostic laparoscopic, laparotomy with small bowel resection, incidental appendectomy for small bowel obstruction with ischemic loop of bowel secondary to adhesive band. Dr. Barajas at a consult with Dr. Mcginnis for antibiotic recommendations. Continue Invanz. Diet advanced to clear liquids, IV opiates for pain or [place], antiemetics, IV hydration 2. Hypertension, on lisinopril. 3. Hyperlipidemia, Zocor on hold 4. Osteoarthritis, Celebrex on hold 5. Leukocytosis secondary to abdominal pathology, 6. CKD stage I, GFR is over 90. Continue to monitor 7. Impaired random blood sugars, continue to monitor. Sugars, A1c to be obtained 8. Mild dehydration with mild azotemia and ketonuria, IV hydration 9. GI prophylaxis with IV PPI 10. DVT prophylaxis, Lovenox 40 every 24 hours Discharge plan: Return home Saturday or Saturday Impression and plan of care have been directed as dictated by the signing physician. Vanita Jacinto nurse practitioner acting as scribe for signing physician.
[2018-04-25] MEDS: ERTAPENEM 1 GM in SODIUM CHLORIDE 0.9% 50 ML IVPB SCH (21:04)
[2018-04-26] MEDS: LORazepam 2 MG/ML INJ IV PRN ×2 (01:35→23:27)
[2018-04-26] MEDS: LISINOPRIL 10 MG TAB PO SCH (09:49)
[2018-04-26] MEDS: BISACODYL 10 MG SUPP RECTAL SCH (09:49)
[2018-04-26] MEDS: SODIUM CHLORIDE 0.9% 1,000 ML IV SCH ×3 (09:50→23:02)
[2018-04-26] MEDS: PANTOPRAZOLE 40 MG/10 ML VIAL IVP SCH (09:50)
[2018-04-26] MEDS: ENOXAPARIN 40 MG/0.4 ML SYRINGE SQ SCH (09:50)
[2018-04-26] MEDS ORDERED: MAGNESIUM CITRATE 296 ML BOTTLE PO ONE (11:40)
--- NOTE | 2018-04-26 11:43 | P.PN ---
Subjective Progress Note Date: 04/26/18 Principal diagnosis: Abdominal pain Patient doing well today. Continue to have bowel movements. No nausea or vomiting. Still feels somewhat weak. She is afebrile. Objective - Vital Signs Vital signs: Vital Signs Temp 98.7 F 04/26/18 06:33 Pulse 84 04/26/18 06:33 Resp 14 04/26/18 06:33 BP 157/79 04/26/18 06:33 Pulse Ox 91 L 04/26/18 06:33 Intake & Output 04/25/18 04/26/18 04/26/18 18:59 06:59 18:59 Intake Total 1425 Balance 1425 Intake: Intake, IV Titration 825 Amount Ertapenem 1 gm In Sodium 50 Chloride 0.9% 50 ml @ 100 mls/hr IVPB DAILY@1900 [facility] Rx#:[id number] Sodium Chloride 0.9% 1, 775 000 ml @ 125 mls/hr IV . Q8H [facility] Rx#:[id number] Oral 600 Other: Voiding Method Toilet Toilet # Voids 2 2 # Bowel Movements 1 - Exam Abdomen: Soft, nondistended, nontender, incision clean and dry - Labs CBC & Chem 7: 04/24/18 08:00 04/23/18 08:00 Labs: Microbiology - Last 24 Hours (Table) 04/21/18 10:39 Blood Culture - Preliminary Blood No Growth after 96 hours Assessment and Plan (1) Abdominal pain Narrative/Plan: Increase diet. One half bottle of magnesium citrate. Ambulate. Hopefully discharge tomorrow. Current Visit: Yes Status: Acute Code(s): R10.9 - UNSPECIFIED ABDOMINAL PAIN SNOMED Code(s): 38490243
[2018-04-26] MEDS: HYDROcodone/APAP 7.5-325MG 1 EACH TAB PO PRN ×2 (13:07→21:46)
--- NOTE | 2018-04-26 15:17 | P.PN ---
Subjective Progress Note Date: 04/26/18 This is a pleasant 77-year-old female patient of Dr John, has underlying history of osteoarthritis, hypertension, hyperlipidemia, lumbar disc disease with spinal fusion requiring prophylactic mastectomy patient presents emergency room secondary to abdominal pain of 20 hours duration, this is later followed by nausea and vomiting, no fever no chills, no sick contacts. 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 Possible transition point in the right mid abdomen concerning for early high-grade small bowel obstruction. There is also mild upper abdominal ascites. Patient will be kept nothing by mouth, NG tube to be placed, consult with Dr. Barajas her primary general surgeon 04/22: White count 16.9, hemoglobin 14.5. Blood sugar 164-156. Patient remains afebrile. Vital signs are stable. Blood pressure is controlled and heart rate is within normal limits. Pulse ox 95% on room air. Repeat abdominal x-ray shows correlate for fecal stasis. Patient has been seen and followed by Dr. Barajas with plan for diagnostic laparoscopy. 04/23: Patient underwent diagnostic laparoscopic, laparotomy with small bowel resection, incidental appendectomy for small bowel obstruction with ischemic loop of bowel secondary to adhesive band. Dr. Barajas at a consult with Dr. Mcginnis for antibiotic recommendations Patient has been seen by Dr. Mcginnis and patient's antibiotics changed to Invanz. Temperature max 100.3, heart rate is improved, pulse ox 95% on room air. Blood pressure stable. WBC count is down to 8.4 and hemoglobin is stable right now at 11.2. Patient is on ice chips only. No NG tube in place. She is tolerating ice chips without any problems. Abdominal pain is improved. 04/24: WBC count remains normal at 6.2, hemoglobin is 10.2. Temperature max 100.1 last afternoon. Patient continues to tolerate ice chips without any difficulty. She states her abdomen is less bloated. She has not been passing gas. She has been able to really back and forth to the bathroom and in the hallway as well and doing well with that. She slept well last night. At this moment, patient denies any abdominal pain. 04/25: Shortness ambulating well. She has had bowel movements and passing gas. Dr. Barajas has advanced her diet to clear liquids for lunch today. Ensure clear will be added for moderate protein calorie malnutrition due to illness and nothing by mouth status. Anticipate she will be ready for discharge this weekend. 04/26. Disseminated well with the help of walker. Is passing gas as well as bowel movements. Transition to keep clear liquid diet today. Able to tolerate diet. Some abdominal discomfort today but no significant pain Objective - Vital Signs Vital signs: Vital Signs Temp 98.7 F 04/26/18 06:33 Pulse 84 04/26/18 06:33 Resp 14 04/26/18 06:33 BP 157/79 04/26/18 06:33 Pulse Ox 91 L 04/26/18 06:33 Intake & Output 04/25/18 04/26/18 04/26/18 18:59 06:59 18:59 Intake Total 1425 800 Balance 1425 800 Intake: Intake, IV Titration 825 800 Amount Ertapenem 1 gm In Sodium 50 Chloride 0.9% 50 ml @ 100 mls/hr IVPB DAILY@1900 [facility] Rx#:[id number] Sodium Chloride 0.9% 1, 775 000 ml @ 125 mls/hr IV . Q8H [facility] Rx#:[id number] Sodium Chloride 0.9% 50 800 ml @ 0 mls/hr IV .STK-MED ONE with ceFAZolin 2,000 mg Rx#:[id number] Oral 600 Other: Voiding Method Toilet Toilet # Voids 2 2 # Bowel Movements 1 - Exam - Exam General appearance: cooperative - EENT Eyes: anicteric sclerae, PERRLA, poor dentition, normal appearance ENT: NA/AT, normal oropharynx - Neck Neck: no lymphadenopathy, normal ROM, no other, no rigidity, no stridor, no thyromegaly - Respiratory Respiratory: bilateral: CTA, negative: diminished, dullness, rales, rhonchi - Cardiovascular Rhythm: regular Heart sounds: normal: S1, S2 Abnormal Heart Sounds: no systolic murmur, no diastolic murmur, no rub, no S3 Gallop, no S4 Gallop, no click, no other - Gastrointestinal General gastrointestinal: Hypoactive bowel sounds, soft Localized gastrointestinal: nontender, sutures without any drainage or sign of inflammation - Integumentary Integumentary: decreased turgor, normal - Neurologic Neurologic: CNII-XII intact - Musculoskeletal Musculoskeletal: gait normal, strength equal bilaterally - Psychiatric Psychiatric: A&O x's 3, appropriate affect, intact judgment & insight - Labs CBC & Chem 7: 04/24/18 08:00 04/23/18 08:00 Labs: Microbiology - Last 24 Hours (Table) 04/21/18 10:39 Blood Culture - Preliminary Blood No Growth after 120 hours Assessment and Plan Plan: 1. Acute abdominal pain with suspected high-grade small bowel obstruction status post diagnostic laparoscopic, laparotomy with small bowel resection, incidental appendectomy for small bowel obstruction with ischemic loop of bowel secondary to adhesive band. Dr. Barajas at a consult with Dr. Mcginnis for antibiotic recommendations. Continue Invanz. Diet advanced to clear liquids, IV opiates for pain or [place], antiemetics, IV hydration 2. Hypertension, on lisinopril. 3. Hyperlipidemia, Zocor on hold 4. Osteoarthritis, Celebrex on hold 5. Leukocytosis secondary to abdominal pathology, 6. CKD stage I, GFR is over 90. Continue to monitor 7. Impaired random blood sugars, continue to monitor. Sugars, A1c to be obtained 8. Mild dehydration with mild azotemia and ketonuria, IV hydration 9. GI prophylaxis with IV PPI 10. DVT prophylaxis, Lovenox 40 every 24 hours Discharge plan: Return home Saturday
[2018-04-26 15:40] VITALS: RESP 16
[2018-04-26] MEDS: ERTAPENEM 1 GM in SODIUM CHLORIDE 0.9% 50 ML IVPB SCH (18:08)
[2018-04-27] MEDS ORDERED: HYDROmorphone 4 MG TABLET PO PRN (05:39)
[2018-04-27] MEDS ORDERED: HYDROmorphone 2 MG TAB PO PRN (05:39)
[2018-04-27] MEDS ORDERED: PANTOPRAZOLE 40 MG TABLET PO SCH (07:30)
[2018-04-27 08:14] VITALS: BP 131/94; PULSE 78; TEMP 97.7
--- NOTE | 2018-04-27 08:44 | P.DS ---
Providers Date of admission: 04/21/18 12:35 Expected date of discharge: 04/27/18 Attending physician: Esther Wynn Consults: 04/21/18 12:24 Consult Physician Stat Consulting Provider: Juan Barajas Consult Reason/Comments: Small bowel obstruction Do you want consulting provider notified?: Yes 04/22/18 15:11 Consult Physician Routine Consulting Provider: Raad Mcginnis Reason/Comments: Ischemic bowel Do you want consulting provider notified?: Yes Primary care physician: Raad John - Discharge Diagnosis(es) (1) Abdominal pain Patient is admitted for abdominal pain. Initially this was thought to represent gastroenteritis or ileus but was found to have a bowel obstruction with a small ischemic loop of bowel from the adhesive band. Patient underwent laparotomy with bowel resection. Postoperatively the patient had an ileus that is gradually improved. She is tolerating diet at this time. Incision is clean and dry and has minimal tenderness. She is ambulating. No white blood cell count elevation or fevers. She is stable for discharge at this point. She'll follow up with me in 1 week. Current Visit: Yes Status: Acute Patient Condition at Discharge: Fair Plan - Discharge Summary Discharge Rx Participant: Yes New Discharge Prescriptions: No Action Oxybutynin Chloride 5 mg PO BID Celecoxib [CeleBREX] 200 mg PO DAILY Lisinopril [Zestril] 10 mg PO DAILY Ergocalciferol (Vitamin D2) [Vitamin D2] 50,000 unit PO Q14D Simvastatin [Zocor] 10 mg PO HS Zolpidem [Ambien] 5 mg PO HS PRN PRN Reason: Insomnia Lidocaine 5% Patch [Lidoderm] 1 patch TOPICAL DAILY Discharge Medication List Celecoxib [CeleBREX] 200 mg PO DAILY 04/21/18 [History] Ergocalciferol (Vitamin D2) [Vitamin D2] 50,000 unit PO Q14D 04/21/18 [History] Lidocaine 5% Patch [Lidoderm] 1 patch TOPICAL DAILY 04/21/18 [History] Lisinopril [Zestril] 10 mg PO DAILY 04/21/18 [History] Oxybutynin Chloride 5 mg PO BID 04/21/18 [History] Simvastatin [Zocor] 10 mg PO HS 04/21/18 [History] Zolpidem [Ambien] 5 mg PO HS PRN 04/21/18 [History] Follow up Appointment(s)/Referral(s): Raad John MD [Primary Care Provider] - 1-2 days [facility] Visiting Nurse, [NON-STAFF] - 1-2 Days
[2018-04-27] MEDS: BISACODYL 10 MG SUPP RECTAL SCH (08:48)
[2018-04-27] MEDS: LISINOPRIL 10 MG TAB PO SCH (08:51)
[2018-04-27] MEDS: ENOXAPARIN 40 MG/0.4 ML SYRINGE SQ SCH (08:51)
[2018-04-27] MEDS: SODIUM CHLORIDE 0.9% 1,000 ML IV SCH (08:51)
[2018-04-27] MEDS: HYDROcodone/APAP 7.5-325MG 1 EACH TAB PO PRN (14:00)
== END 2018-04-27 14:16 | disposition home health service (06) | DRG 330 ==
LOC: EC 09:07 → 5ONC 12:35 → 4MS4W 13:54
PROVIDERS: ADMIT Family Medicine; ATTEND Family Medicine
PROC: 0DB80ZZ Excision of Small Intestine, Open Approach (ICD-10-PCS; principal; 2018-04-22 10:20)
PROC: 0DTJ0ZZ Resection of Appendix, Open Approach (ICD-10-PCS; principal; 2018-04-22 10:20)
DX: K56.50 Intestinal adhesions [bands], unspecified as to partial versus complete obstruction (principal); E44.0 Moderate protein-calorie malnutrition; K55.9 Vascular disorder of intestine, unspecified; R18.8 Other ascites; E78.5 Hyperlipidemia, unspecified; E86.0 Dehydration; G47.30 Sleep apnea, unspecified; Z99.89 Dependence on other enabling machines and devices; I12.9 Hypertensive chronic kidney disease with stage 1 through stage 4 chronic kidney disease, or unspecified chronic kidney disease; K21.9 Gastro-esophageal reflux disease without esophagitis; M19.90 Unspecified osteoarthritis, unspecified site; N18.1 Chronic kidney disease, stage 1; Q27.9 Congenital malformation of peripheral vascular system, unspecified; Z79.899 Other long term (current) drug therapy; Z80.3 Family history of malignant neoplasm of breast; Z87.891 Personal history of nicotine dependence; Z88.0 Allergy status to penicillin; Z98.1 Arthrodesis status; Z98.42 Cataract extraction status, left eye; Z98.41 Cataract extraction status, right eye
CPT/HCPCS: 36415; 71046; 74021; 74177; 80053; 81003; 82150; 83036; 83605; 83690; 84484; 85025; 85610; 85730; 87040; 88302; 88307; 93005; 96361; 96372; 96374; 96375; 99284; 99285

== ENCOUNTER → 2018-08-08 | Outpatient (CLI) | payer MEDICARE | END | disposition home or self-care (01) | LOC: LABWHC1 09:34 | PROVIDERS: ATTEND Orthopaedic Surgery Orthopaedic Surgery of the Spine | DX: M54.5 Low back pain (principal); M43.16 Spondylolisthesis, lumbar region; M51.15 Intervertebral disc disorders with radiculopathy, thoracolumbar region; Z98.1 Arthrodesis status | CPT/HCPCS: 36415; 82565; 84520 ==

== ENCOUNTER → 2018-08-11 | Outpatient (CLI) | payer MEDICARE ==
--- NOTE | 2018-08-11 11:11 | MR ---
EXAMINATION TYPE: MR janethine/chan wo/w con DATE OF EXAM: 08/11/2018 10:56 AM COMPARISON: NONE Contrast: 6 cc Gadavist HISTORY: Thoracic spine pain, low back pain Multiplanar MultiSpin echo imaging of the thoracic spine was performed. Pre and post contrast enhanc ed images are obtained. Disc spaces: There is [id number] scattered disc desiccation compatible with degenerative disc d isease extending from T2-3 through T12-L1. There is mild posterior disc bulging greatest at T8-9 and T10-11 with mild effacement of the ventral thecal sac. Small left paracentral disc protrusion at T7-8 , mild right paracentral protrusion noted at T8-9 and small left paracentral protrusion at T9-T10. Spinal canal: No evidence for canal stenosis. No intrinsic or extrinsic lesion. Thoracic spinal cord: Thoracic spinal cord is of normal caliber and signal. Paraspinal soft tissues: No evidence for paraspinal mass. No destructive lesions seen. Vertebral segments: No evidence for fracture or bony lesion. No pathologic enhancement is identified. Scattered ventral spondylosis. Mild exaggerated kyphosis. T1 2 hemangioma noted. IMPRESSION: 1. Degenerative disc disease with disc bulging. Small disc protrusions as noted. No central stenosis identified. No fracture or osseous lesion noted. EXAMINATION TYPE: MR heidy/chan wo/w con DATE OF EXAM: 08/11/2018 10:56 AM COMPARISON: NONE HISTORY: Thoracic spine pain, low back pain CONTRAST: The patient was injected with 6 mL intravenous Gadavist gadolinium contrast. Multiplanar, MultiSpin echo imaging of the lumbar spine was performed. L1-L2: Normal disc appearance without desiccation. No herniation, protrusion or disc bulging. No ca nal stenosis is present. Foramina are patent bilaterally. L2-L3: Mild disc desiccation noted. Mild posterocentral disc bulge . No disc herniation. No evidence for central stenosis. Facet joint arthropathy with bilateral foraminal encroachment. L3-L4: Mild disc desiccation noted. Mild posterocentral disc bulge . No disc herniation. No evidence for central stenosis. Facet joint arthropathy with bilateral foraminal encroachment. L4-L5: Moderate disc desiccation. Grade 1 anterolisthesis measuring 7.4 mm. Posterior disc bulge. Dis tortion of the thecal sac with moderate central stenosis appreciated. Facet joint arthropathy with bi lateral foraminal encroachment. L5-S1: Postoperative screws at L5-S1. Moderate degenerative disc disease noted. No significant disc b ulge or herniation. No central stenosis appreciated. Lumbar segments are intact. No paraspinal masses are identified. Conus medullaris has a normal appe arance. No pathologic enhancement. Scattered hemangiomas noted. Ventral spondylosis. IMPRESSION: 1. Multilevel degenerative disc disease with disc bulging and foraminal encroachment. 2. Grade 1 anterolisthesis L4 and L5 with moderate central stenosis. 3. Postsurgical changes as noted.
== END | disposition home or self-care (01) ==
LOC: RADMRIMAIN 09:26
PROVIDERS: ATTEND Orthopaedic Surgery Orthopaedic Surgery of the Spine
DX: M48.061 Spinal stenosis, lumbar region without neurogenic claudication (principal); M43.16 Spondylolisthesis, lumbar region; M51.16 Intervertebral disc disorders with radiculopathy, lumbar region; M51.24 Other intervertebral disc displacement, thoracic region; M51.34 Other intervertebral disc degeneration, thoracic region; Z98.890 Other specified postprocedural states
CPT/HCPCS: 72157; 72158; A9585

== ENCOUNTER → 2018-09-18 | Outpatient (CLI) | payer MEDICARE ==
[2018-09-16 15:58] VITALS: BMI 21.7
[2018-09-18 13:55] VITALS: BP 148/74; PULSE 79; RESP 16
--- NOTE | 2018-09-18 15:44 | P.PAINCN ---
History of Present Illness - Reason for Consult Consult date: 09/18/18 - History of Present Illness This is initial consultation visit for this 78 years old female with a chronic history of severe mid back and low back pain, the pain started more than 5 years ago, mostly in the thoracic region, radiated from the lower part of the shoulder blade area inferiorly, she denies any initiating event, she denies any motor or sensory deficit, but she reported that the pain increases with any activity, she continued to be active doing bicycling and golfing and exercise, but the intensity of the pain interfering with her quality of life, she denies any motor or sensory deficit she denies any fever or night sweats she denies any change in the bowel movement or urination Past Medical History Past Medical History: Cancer, GERD/Reflux, Hyperlipidemia, Hypertension, Pneumonia, Sleep Apnea/CPAP/BIPAP Additional Past Medical History / Comment(s): skin ca. heart murmur, tremors( hands).spinal stenosis, has cpap machine History of Any Multi-Drug Resistant Organisms: None Reported Past Surgical History: Back Surgery, Bowel Resection, Orthopedic Surgery, Tonsillectomy Additional Past Surgical History / Comment(s): nilam breast bx nilam mastectomy( prophylactic-mom had hx breast ca), tendon repair lt ankle, hx shingles 20 years ago, L5-6 fusion, cataracts, colonscopies Past Anesthesia/Blood Transfusion Reactions: No Reported Reaction Additional Past Anesthesia/Blood Transfusion Reaction / Comm: had blood transfusion-no reaction Past Psychological History: Anxiety Additional Psychological History / Comment(s): . retired. no animals. no recent travel but has no illness with prior travel. reformed smoker no other habits related Smoking Status: Former smoker Past Alcohol Use History: Daily Additional Past Alcohol Use History / Comment(s): started smoking age 16 and quit age 35 smoked 1/2 ppd. drinks 5 ounces wine per day Past Drug Use History: None Reported - Past Family History Mother Family Medical History: Cancer Additional Family Medical History / Comment(s): breast ca Father Additional Family Medical History / Comment(s): born with heart defect- at age 49 Medications and Allergies Home Medications Medication Instructions Recorded Confirmed Type Celecoxib [CeleBREX] 200 mg PO DAILY 04/21/18 09/18/18 History Lidocaine 5% Patch [Lidoderm 5% 1 patch TOPICAL DAILY 04/21/18 09/18/18 History Patch] Lisinopril [Zestril] 10 mg PO DAILY 04/21/18 09/18/18 History Oxybutynin Chloride 5 mg PO DAILY 04/21/18 09/18/18 History Simvastatin [Zocor] 10 mg PO HS 04/21/18 09/18/18 History ALPRAZolam [Xanax] 0.25 mg PO HS PRN #7 tab 04/27/18 09/18/18 Rx Buprenorphine [Butrans 5 MCG/HR] 1 each TRANSDERM WE 09/16/18 09/18/18 History Cholecalciferol [Vitamin D3] 50,000 unit PO DAILY 09/16/18 09/18/18 History HYDROcodone/APAP 10-325MG [Zortman 1 tab PO DAILY PRN 09/16/18 09/18/18 History 10-325] traMADol HCl [Ultram] 5 mg PO DAILY 09/16/18 09/18/18 History Allergies Allergy/AdvReac Type Severity Reaction Status Date / Time Penicillins Allergy Unknown Unknown Verified 09/18/18 13:38 codeine Allergy "makes me Verified 09/18/18 13:38 ill" menthol Allergy Rash/Hives Verified 09/18/18 13:38 Physical Exam Vitals: Vital Signs Pulse Resp BP 09/18/18 13:42 79 16 148/74 Social history : not smoker , NO ETOH , NO Illegal drugs use . Review of Systems : 1- Constitutional : no chills , no fever , no night sweats , 2- Ears : no ear discharge , no change in hearing 3-Nose, Mouth ,Throat ; no bleeding gums, no sore throat , no epistaxis , 4-Cardiovascular : Denies chest pain, , no orthopnea , no palpitation 5-Respiratory : Denies cough , no dyspnea , no hemoptysis 6-Gastrointestinal :, no change in bowel habits , no coffee- ground emesis . 7-Genitourinary : No hematuria , no discharge , no incontinence, 8-Musculoskeletal : No gait dysfunction , report low back pain , 9- Neurological : no ataxia , no tremor , no sezure , 10-Psychatric , no suicidal ideation no hallucination 11- Endocrine : no cold intolerence , no polyuria , no polydypsia , 12-Hematologic : no easy bleeding , no easy brusing , 13-Allergic / immunology : no angioedema , no wheezing ,no allergic rhinitis 14-Integumentary : no brttle nails , no change hair / nails , no foot/leg ulcers . Physical Examinations : 1-Constitutional : Cooperative , not in acute distress . 2-HEENT : nech ; supple , no Lymphadenopathy , no Thyromegaly , :eyes , no icterus, no photophobia . ENT : , normal oropharynx , no Thrush 3- Respiratory : Chest clear to auscultations Bilaterally , no wheezing 4- Cardiovascular : regular rate and rhythem , S1 , S2 , no S3 , no S4. 5- Gastrointestinal: abdomen soft no tenderness , no organomegally . 6- Genitourinary : Defferred . 7-Integumentary : No cellulitis , no ulcers , normal skin turgor , no cyanotic . 8- neurologic : Cranial nerve II to XII intact , no focal neurological deffecit 9-psychatric : alert , oriented X 3 , appropriate affect , intact judgment and insight . 10-Lymphatic : no Lymphadenopathy. 11- musculoskeltal: normal gait Cervical Spine motor stregnth in the deltoid and biceps, normal right side , normal Left side motor stregnth biceps and the wrist extensors normal right side ,normal left side . motor stregnth in the triceps muscle . normal Right side , normal Left side deep tendon reflexes normal at the biceps , normal at Brachioradialis , normal at triceps Thoracic spine= positive facet loading test thoracic area Patient had Lidoderm patch between the T7 and the lower Tenderness to palpation over the midline of the thoracic spine Lumber spine moter stegnth lower extremities ,thigh and legs 5/5 Right side , 5/5 Left side Results Comments: MRI of the thoracic spine done at [facility] 08/11/2018 disc bulging at T7 8 and T8 pain at T10 11 and degenerative disc disease MRI of the lumbar spine done at [facility] 08/11/2018 multilevel bulging disc disease and facet joint arthropathy Assessment and Plan Plan: Assessment and plan= 1-mid back pain secondary to thoracic bulging disc disease Patient could benefit from Thoracic epidural steroid injection under fluoroscopy guidance at T7 8 level. 2-lumbar degenerative disc disease and lumbar spondylosis with facet arthropathy. Patient currently using Zortman and ultam , Celebrex and Lidoderm patch ,she denies any side effects of the medication ,and she should continue her current medication, she is getting prescription refills from her primary care Time with Patient: Greater than 30 PQRS Measure Charge Sheet Measure #130: Documentation of Current Meds in Medical Chart: Patient's medications documented in chart Measure #226: Tobacco Use: Screen & Cessation Intervention: Pt not a tobacco user Measure #111: Pneumonia Vaccination: Pneumococcal vaccine administered or previously received Measure #47: Advance Care Plan: Advance care planning discussed & documented, pt chose/unable to give Measure #412: Opioid Treatment Agreement: No documentation of signed opioid treatment agreement Measure #408: Opioid Therapy Follow-up Evaluation: Patient had NO f/u eval minimum every 3 months during opioid therapy Measure #317: Preventitive Care & Scrn High Bld Press & F/U: Pre-hypertensive or hypertensive BP documented, pt will f/u with PCP Measure #128: Body Mass Index (BMI) Screening & Follow-up: BMI documented within normal parameters Measure #131: Pain Assessment & Follow-up: Pain positive & plan documented, Follow-up scheduled Measure #431: Unhealthy Alcohol Use Preventative Care & Scrn: Patient not identified as an unhealthy alcohol user PQRS Narrative: Smoking Status Former smoker Do You Want the Pneumonia Vaccine Up to Date Vaccine AT THIS TIME? Blood Pressure 148/74 Pain Intensity [Bilateral 3 Upper Back] Scale Used Numeric (1 - 10) Hx Alcohol Use (MH) Yes: occ Home Medications: Ambulatory Orders Celecoxib [CeleBREX] 200 mg PO DAILY 04/21/18 Lidocaine 5% Patch [Lidoderm 5% Patch] 1 patch TOPICAL DAILY 04/21/18 Lisinopril [Zestril] 10 mg PO DAILY 04/21/18 Oxybutynin Chloride 5 mg PO DAILY 04/21/18 Simvastatin [Zocor] 10 mg PO HS 04/21/18 ALPRAZolam [Xanax] 0.25 mg PO HS PRN #7 tab 04/27/18 Buprenorphine [Butrans 5 MCG/HR] 1 each TRANSDERM WE 09/16/18 Cholecalciferol [Vitamin D3] 50,000 unit PO DAILY 09/16/18 HYDROcodone/APAP 10-325MG [Zortman 10-325] 1 tab PO DAILY PRN 09/16/18 traMADol HCl [Ultram] 5 mg PO DAILY 09/16/18
== END ==
LOC: PNWHC3 13:07
PROVIDERS: ATTEND Specialist
DX: M51.24 Other intervertebral disc displacement, thoracic region (principal); M51.36 Other intervertebral disc degeneration, lumbar region; M47.816 Spondylosis without myelopathy or radiculopathy, lumbar region; M46.96 Unspecified inflammatory spondylopathy, lumbar region; Z79.891 Long term (current) use of opiate analgesic; Z79.899 Other long term (current) drug therapy; Z87.891 Personal history of nicotine dependence; Z79.1 Long term (current) use of non-steroidal anti-inflammatories (NSAID)
CPT/HCPCS: 99211

== ENCOUNTER → 2018-09-23 | Day surgery (SDC) | payer MEDICARE ==
[~2018-09-23] MED LIST: IV FLUID CONTINUATION 1,000 ML IV ONE; LACTATED RINGERS 1,000 ML IV ONE; LIDOCAINE 1% 20 ML VIAL (10MG/ML) FOR IV START INTRADERMA ONE; SODIUM CHLORIDE 0.9% 500 ML 500 ML IV SCH
[2018-09-23 08:12] VITALS: BMI 22.6
[2018-09-23 08:21] VITALS: RESP 16; TEMP 98.4
--- NOTE | 2018-09-23 09:30 | P.PCN ---
Date of Procedure: 09/23/18 Surgeon: Musa Han Pathology: none sent Condition: stable Disposition: PACU Description of Procedure: PREOPERATIVE DIAGNOSIS: thoracic DDD POSTOPERATIVE DIAGNOSIS: Thoracic DDD PROCEDURE 1. Thoracic epidural steroid injection under fluoroscopic guidance at the T 7- 8 level. 2. Thoracic epidurogram. ANESTHESIA: Local with 1% lidocaine; and IV moderate conscious sedation with Versed and fentanyl EBL: Minimal PROCEDURE INDICATION: The patient with low back pain and radiculitis symptoms unresponsive to conservative treatment. Fluoroscopy was used to optimize visualization of the needle placement and to maximize safety. PROCEDURE DESCRIPTION / TECHNIQUE: The patient was seen and identified in the preoperative area. Risks, benefits , complications including but not limited to infections ,bleeding ,allergic reaction to the medications ,nerve damage and not complete pain relief , and alternatives were discussed with the patient. The patient agreed to proceed with the procedure and signed the consent. IV was started, and vital signs were stable. Patient was taken to the OR and time out was completed. The patient was placed in the prone position on procedure table and a pillow was placed under the abdomen to reduce lumbar lordosis. The thoracic area was prepped and draped in the usual sterile fashion with ChloraPrep.Patient was closely monitored during the procedure. Conscious sedation was used during the procedure to decrease patients anxiety. Vital signs were monitored during the entire procedure. Using anterior-posterior fluoroscopy, the T 7-8 interlaminar space was identified and the skin over this site was marked and then infiltrated with 1% lidocaine subcutaneously. Subsequently, a 20-gauge Tuohy epidural needle was inserted and advanced toward the epidural space using the Loss of resistance to air technique and guided by AP and lateral fluoroscopy. The correct needle position in the epidural space was verified with the injection of 1 mL of the water soluble contrast dye Isovue-M 200 contrast and observing an excellent epidurogram with the epidural spread of the dye on the AP and lateral view of fluoroscopy, after negative aspiration for blood and CSF and in the absence of paresthesias. Again after negative aspiration, a 6 ml mixture containing 10 mg of Decadron and 3 ml of preservative free Normal Saline, and 2 ml of preservative free ropivacaine 0.5% solution was injected and a washout of epidurogram was seen. Needle was withdrawn intact, skin was cleansed, and bandages were applied. patient tolerated procedure well and was transferred to PACU in stable condition. COMPLICATIONS: None
--- NOTE | 2018-09-23 09:55 | FL ---
EXAMINATION TYPE: FL guided pain mgmt statistic DATE OF EXAM: 09/23/2018 HISTORY: Flouroscopy time 4 seconds of fluoroscopy provided. IMPRESSION: 1. Fluoroscopy time.
[2018-09-23 10:03] VITALS: BP 118/61; PULSE 79
== END ==
LOC: ORPAIN 07:28
PROVIDERS: ATTEND Anesthesiology
DX: G89.29 Other chronic pain (principal); M51.14 Intervertebral disc disorders with radiculopathy, thoracic region; K21.9 Gastro-esophageal reflux disease without esophagitis; E78.5 Hyperlipidemia, unspecified; I10 Essential (primary) hypertension; G47.30 Sleep apnea, unspecified; Z99.89 Dependence on other enabling machines and devices; Z85.821 Personal history of Merkel cell carcinoma; R25.1 Tremor, unspecified; Z80.3 Family history of malignant neoplasm of breast; Z90.13 Acquired absence of bilateral breasts and nipples; F41.9 Anxiety disorder, unspecified; Z87.891 Personal history of nicotine dependence; Z79.891 Long term (current) use of opiate analgesic; Z79.899 Other long term (current) drug therapy; Z88.0 Allergy status to penicillin; Z88.8 Allergy status to other drugs, medicaments and biological substances
CPT/HCPCS: 62321; J2250; J1100; J3010; Q9966; 99152

== ENCOUNTER 2019-01-17 09:07 | Inpatient (IN) | payer MEDICARE ==
[2019-01-17] MEDS ORDERED: SODIUM CHLORIDE 0.9% 1,000 ML IV STA (09:39)
[2019-01-17] MEDS ORDERED: SODIUM CHLORIDE 0.9% 500 ML 500 ML IV STA (09:39)
[2019-01-17] MEDS ORDERED: ONDANSETRON 4 MG/2 ML VIAL IVP STA (09:39)
[2019-01-17] MEDS ORDERED: MORPHINE SULFATE 4 MG/ML SYRINGE IV STA ×2 (09:39→11:55)
[2019-01-17] MEDS ORDERED: FAMOTIDINE 20 MG/2 ML VIAL IV STA (09:40)
--- NOTE | 2019-01-17 09:44 | ED ---
General Adult HPI - General Chief complaint: Nausea/Vomiting/Diarrhea Stated complaint: Vomiting/diarrhea Time Seen by Provider: 01/17/19 09:22 Source: patient, RN notes reviewed Mode of arrival: ambulatory Limitations: no limitations - History of Present Illness Initial comments: Patient is a pleasant 78-year-old female presenting to the emergency Department with abdominal discomfort and vomiting. Onset of symptoms was yesterday afternoon. Patient states symptoms have progressively worsened since that time. Patient has had several episodes of vomiting. Patient is able to tolerate some liquids. No constipation or diarrhea. No fevers however patient did feel chilled last night. Patient does have previous history of bowel obstruction and resection. Patient is unclear if symptoms may be similar to that or "just a stomach flu". - Related Data Home Medications Medication Instructions Recorded Confirmed Celecoxib [CeleBREX] 200 mg PO DAILY 04/21/18 01/17/19 Lidocaine 5% Patch [Lidoderm 5% 1 patch TOPICAL DAILY 04/21/18 01/17/19 Patch] Lisinopril [Zestril] 10 mg PO DAILY 04/21/18 01/17/19 Oxybutynin Chloride 5 mg PO BID 04/21/18 01/17/19 Simvastatin [Zocor] 10 mg PO HS 04/21/18 01/17/19 Cholecalciferol [Vitamin D3] 50,000 unit PO Q14D 09/16/18 01/17/19 HYDROcodone/APAP 10-325MG [Walls 1 tab PO DAILY PRN 09/16/18 01/17/19 10-325] Allergies Allergy/AdvReac Type Severity Reaction Status Date / Time Penicillins Allergy Unknown Unknown Verified 01/17/19 11:20 codeine Allergy "makes me Verified 01/17/19 11:20 ill" menthol Allergy Rash/Hives Verified 01/17/19 11:20 Review of Systems ROS Statement: Those systems with pertinent positive or pertinent negative responses have been documented in the HPI. ROS Other: All systems not noted in ROS Statement are negative. Constitutional: Reports: as per HPI Eyes: Denies: eye pain ENT: Denies: ear pain Respiratory: Denies: cough Cardiovascular: Denies: chest pain Endocrine: Denies: fatigue Gastrointestinal: Reports: abdominal pain, nausea, vomiting Genitourinary: Denies: dysuria Musculoskeletal: Denies: back pain Skin: Denies: rash Neurological: Denies: weakness Past Medical History Past Medical History: Cancer, GERD/Reflux, Hyperlipidemia, Hypertension, Pneumonia, Sleep Apnea/CPAP/BIPAP Additional Past Medical History / Comment(s): skin ca. heart murmur, tremors(hands).spinal stenosis, has cpap machine History of Any Multi-Drug Resistant Organisms: None Reported Past Surgical History: Back Surgery, Bowel Resection, Orthopedic Surgery, Tonsillectomy Additional Past Surgical History / Comment(s): nilam breast bx nilam mastectomy(prophylactic-mom had hx breast ca), tendon repair lt ankle, hx sh ingles 20 years ago, L5-6 fusion, cataracts, colonscopies Past Anesthesia/Blood Transfusion Reactions: No Reported Reaction Additional Past Anesthesia/Blood Transfusion Reaction / Comment(s): had blood transfusion-no reaction Past Psychological History: Anxiety Smoking Status: Former smoker Past Alcohol Use History: Daily Past Drug Use History: None Reported - Past Family History Mother Family Medical History: Cancer Additional Family Medical History / Comment(s): breast ca Father Additional Family Medical History / Comment(s): born with heart defect- at age 49 General Exam Limitations: no limitations General appearance: alert, in no apparent distress Head exam: Present: atraumatic Eye exam: Present: normal appearance, PERRL ENT exam: Present: normal oropharynx Neck exam: Present: normal inspection Respiratory exam: Present: normal lung sounds bilaterally Cardiovascular Exam: Present: tachycardia Expanded Peripheral pulses: 2+: Radial (R), Radial (L), Posterior Tibialis (R), Posterior Tibialis (L), Dorsalis Pedis (R), Dorsalis Pedis (L) GI/Abdominal exam: Present: soft, tenderness (Mild to moderate diffuse tenderness), normal bowel sounds. Absent: rebound, rigid, pulsatile mass Extremities exam: Present: normal inspection Neurological exam: Present: alert Psychiatric exam: Present: normal affect, normal mood Skin exam: Present: normal color Course Vital Signs 01/17/19 01/17/19 09:10 10:05 Temperature 98 F Pulse Rate 121 H 112 H Respiratory 16 18 Rate Blood Pressure 125/74 O2 Sat by Pulse 97 Oximetry EKG Findings - EKG Comments: EKG Findings:: Sinus tachycardia 106. OK 116. QRS 78. QT 336. QTc 446. Normal axis. Normal QRS. Nonspecific T waves. Medical Decision Making - Medical Decision Making Patient reevaluated and updated. Heart rate has improved to 100. Dr. Moore has been paged. - Lab Data Result diagrams: 01/17/19 09:22 01/17/19 09:22 Lab Results 01/17/19 01/17/19 01/17/19 Range/Units 09:22 09:22 09:22 WBC 14.0 H (3.8-10.6) k/uL RBC 4.33 (3.80-5.40) m/uL Hgb 13.0 (11.4-16.0) gm/dL Hct 41.0 (34.0-46.0) % MCV 94.7 (80.0-100.0) fL MCH 30.0 (25.0-35.0) pg MCHC 31.7 (31.0-37.0) g/dL RDW 13.8 (11.5-15.5) % Plt Count 298 (150-450) k/uL Neutrophils % 88 % Lymphocytes % 3 % Monocytes % 8 % Eosinophils % 1 % Basophils % 0 % Neutrophils # 12.3 H (1.3-7.7) k/uL Lymphocytes # 0.4 L (1.0-4.8) k/uL Monocytes # 1.1 H (0-1.0) k/uL Eosinophils # 0.1 (0-0.7) k/uL Basophils # 0.1 (0-0.2) k/uL Manual Slide Review Performed RBC Morphology Normal PT 9.8 (9.0-12.0) sec INR 0.9 (<1.2) APTT 21.9 L (22.0-30.0) sec Sodium 144 (137-145) mmol/L Potassium 4.6 (3.5-5.1) mmol/L Chloride 106 (98-107) mmol/L Carbon Dioxide 26 (22-30) mmol/L Anion Gap 12 mmol/L BUN 23 H (7-17) mg/dL Creatinine 1.03 (0.52-1.04) mg/dL Est GFR (CKD-EPI)AfAm 60 (>60 ml/min/1.73 sqM) Est GFR (CKD-EPI)NonAf 52 (>60 ml/min/1.73 sqM) Glucose 188 H (74-99) mg/dL Calcium 11.0 H (8.4-10.2) mg/dL Total Bilirubin 0.8 (0.2-1.3) mg/dL AST 30 (14-36) U/L ALT 14 (9-52) U/L Alkaline Phosphatase 84 (38-126) U/L Total Protein 7.5 (6.3-8.2) g/dL Albumin 4.9 (3.5-5.0) g/dL Amylase 57 (30-110) U/L Lipase 55 (23-300) U/L Urine Color Urine Appearance (Clear) Urine pH (5.0-8.0) Ur Specific [place] (1.001-1.035) Urine Protein (Negative) Urine Glucose (UA) (Negative) Urine Ketones (Negative) Urine Blood (Negative) Urine Nitrite (Negative) Urine Bilirubin (Negative) Urine Urobilinogen (<2.0) mg/dL Ur Leukocyte Esterase (Negative) Urine RBC (0-5) /hpf Urine WBC (0-5) /hpf Ur Squamous Epith Cells (0-4) /hpf Hyaline Casts (0-2) /lpf Urine Mucus (None) /hpf 01/17/19 Range/Units 09:22 WBC (3.8-10.6) k/uL RBC (3.80-5.40) m/uL Hgb (11.4-16.0) gm/dL Hct (34.0-46.0) % MCV (80.0-100.0) fL MCH (25.0-35.0) pg MCHC (31.0-37.0) g/dL RDW (11.5-15.5) % Plt Count (150-450) k/uL Neutrophils % % Lymphocytes % % Monocytes % % Eosinophils % % Basophils % % Neutrophils # (1.3-7.7) k/uL Lymphocytes # (1.0-4.8) k/uL Monocytes # (0-1.0) k/uL Eosinophils # (0-0.7) k/uL Basophils # (0-0.2) k/uL Manual Slide Review RBC Morphology PT (9.0-12.0) sec INR (<1.2) APTT (22.0-30.0) sec Sodium (137-145) mmol/L Potassium (3.5-5.1) mmol/L Chloride (98-107) mmol/L Carbon Dioxide (22-30) mmol/L Anion Gap mmol/L BUN (7-17) mg/dL Creatinine (0.52-1.04) mg/dL Est GFR (CKD-EPI)AfAm (>60 ml/min/1.73 sqM) Est GFR (CKD-EPI)NonAf (>60 ml/min/1.73 sqM) Glucose (74-99) mg/dL Calcium (8.4-10.2) mg/dL Total Bilirubin (0.2-1.3) mg/dL AST (14-36) U/L ALT (9-52) U/L Alkaline Phosphatase (38-126) U/L Total Protein (6.3-8.2) g/dL Albumin (3.5-5.0) g/dL Amylase (30-110) U/L Lipase (23-300) U/L Urine Color Yellow Urine Appearance Cloudy H (Clear) Urine pH 5.5 (5.0-8.0) Ur Specific [place] 1.030 (1.001-1.035) Urine Protein 2+ H (Negative) Urine Glucose (UA) Trace H (Negative) Urine Ketones 1+ H (Negative) Urine Blood Negative (Negative) Urine Nitrite Negative (Negative) Urine Bilirubin 1+ H (Negative) Urine Urobilinogen 3.0 (<2.0) mg/dL Ur Leukocyte Esterase Small H (Negative) Urine RBC 2 (0-5) /hpf Urine WBC 5 (0-5) /hpf Ur Squamous Epith Cells 2 (0-4) /hpf Hyaline Casts 19 H (0-2) /lpf Urine Mucus Moderate H (None) /hpf - Radiology Data Radiology results: report reviewed (As discussed with radiologist there is concern for partial colonic obstruction.) Disposition Clinical Impression: Partial bowel obstruction Disposition: ADMITTED IP TO THIS HOSP Is patient prescribed a controlled substance at d/c from ED?: No Referrals: Raad John MD [Primary Care Provider] - 1-2 days Decision Time: 12:22
[2019-01-17 09:54] LABS: Basophils # (A) 0.1 k/uL (0-0.2); Basophils % (A) 0 %; Eosinophils # (A) 0.1 k/uL (0-0.7); Eosinophils % (A) 1 %; Lymphocytes # (A) 0.4 k/uL (1.0-4.8); Lymphocytes % (A) 3 %; MCHC 31.7 g/dL (31.0-37.0); MCV 94.7 fL (80.0-100.0); Mean Platelet Volume 8.1; Monocytes # (A) 1.1 k/uL (0-1.0); Monocytes % (A) 8 %; Neutrophils # (A) 12.3 k/uL (1.3-7.7); Neutrophils % (A) 88 %; Platelet Count 298 k/uL (150-450); RBC 4.33 m/uL (3.80-5.40); RDW 13.8 % (11.5-15.5)
[2019-01-17 10:02] LABS: Albumin 4.9 g/dL (3.5-5.0); Potassium 4.6 mmol/L (3.5-5.1); Total Bilirubin 0.8 mg/dL (0.2-1.3); Total Protein 7.5 g/dL (6.3-8.2)
[2019-01-17 10:09] LABS: INR 0.9 (<1.2); Partial Thromboplastin Time 21.9 sec (22.0-30.0); Prothrombin Time 9.8 sec (9.0-12.0)
[2019-01-17 10:32] LABS: Appearance,Urine Cloudy (Clear); Bilirubin,Urine 1+ (Negative); Blood,Urine Negative (Negative); Color,Urine Yellow; Glucose,Urine (UA) Trace (Negative); Hyaline Casts,Urine 19 /lpf (0-2); Ketones,Urine 1+ (Negative); Leukocyte Esterase,Urine Small (Negative); Mucus,Urine Moderate /hpf; Nitrite,Urine Negative (Negative); PH, Urine 5.5 (5.0-8.0); Protein,Urine 2+ (Negative); RBC,Urine 2 /hpf (0-5); Squamous Epithelial Cell,Urine 2 /hpf (0-4); WBC,Urine 5 /hpf (0-5)
--- NOTE | 2019-01-17 12:07 | CT ---
EXAMINATION TYPE: CT abdomen pelvis w con DATE OF EXAM: 01/17/2019 COMPARISON: 04/21/2018 INDICATION: Vomitting/diarrhea DLP: 569.2 mGycm, Automated exposure control for dose reduction was used. CONTRAST: 100 ml mL of Isovue 300. Study performed without Oral Contrast TECHNIQUE: Axial images were obtained from above the diaphragm to the pubic rami in the axial plane a t 5 mm thick sections. Reconstructed images are reviewed on the computer in the coronal plane. FINDINGS: Limited CT sections are obtained the lung bases. The lung bases are clear. Bilateral breast prosthe ses are evident. CT ABDOMEN: Small amount of ascites is present. Liver: Normal Spleen: Normal Pancreas: Normal Adrenal glands: The adrenal glands are normal. Gallbladder: Normal Kidneys: No masses are evident. No hydronephrosis is present. No cysts are present. Delayed images were obtained through the kidneys, which remain unremarkable. Aorta: Normal. Minimal calcification is present. Inferior vena cava: Normal. CT PELVIS: There are multiple dilated fluid-filled small bowel loops present. Small amount of air is within the colon. Partial small bowel obstruction and ileus should be considered. Fecal debris past the anastomo sis within the anterior mid pelvis without evidence of focal stenosis at that level. There is a poten tial transition within the left upper quadrant within the colon. The splenic flexure and descending c olon are decompressed. Appendix: Not visualized Urinary bladder: Decompressed and cannot be evaluated Genitourinary structures: Uterus appears normal. No suspicious changes in the adnexal region are evid ent. Osseous structures: Postsurgical changes are at the lumbosacral region. No suspicious acute osseous a bnormality. IMPRESSIONS: 1. Multiple dilated small bowel loops and air and fecal debris throughout the colon. Potential trans ition within the distal transverse colon prior to the splenic flexure may be present. Splenic flexure distal colon are decompressed. The anastomosis, which is proximal to this suspected transition locat ion is nonstenotic. Report was called to Dr. Greer by Dr. Leger at the time of interpretation. 1203 hours 01/17/2019
[2019-01-17] MEDS ORDERED: NALOXONE 0.4 MG/ML 1 ML VIAL IV PRN (12:22)
[2019-01-17 14:47] VITALS: BMI 22.6
[2019-01-17] MEDS: SODIUM CHLORIDE 0.9% 1,000 ML IV SCH ×2 (14:53→22:01)
[2019-01-17] MEDS: MORPHINE SULFATE 4 MG/ML SYRINGE IV PRN ×2 (17:05→22:20)
[2019-01-17] MEDS: ONDANSETRON 4 MG/2 ML VIAL IVP PRN (22:30)
[2019-01-18] MEDS: ONDANSETRON 4 MG/2 ML VIAL IVP PRN (05:37)
[2019-01-18 06:42] LABS: HCT 34.1 % (34.0-46.0); HGB 11.1 gm/dL (11.4-16.0); MCH 31.4 pg (25.0-35.0); MCHC 32.6 g/dL (31.0-37.0); MCV 96.3 fL (80.0-100.0); Mean Platelet Volume 7.5; Platelet Count 220 k/uL (150-450); RBC 3.54 m/uL (3.80-5.40); RDW 13.8 % (11.5-15.5); WBC 4.6 k/uL (3.8-10.6)
[2019-01-18 07:02] LABS: Albumin 3.8 g/dL (3.5-5.0); Calcium 9.4 mg/dL (8.4-10.2); Potassium 4.2 mmol/L (3.5-5.1); Total Bilirubin 0.5 mg/dL (0.2-1.3)
[2019-01-18 07:12] LABS: Band Neutrophils % 25 %; Eosinophils # (M) 0.09 k/uL (0-0.7); Lymphocytes # (M) 0.92 k/uL (1.0-4.8); Monocytes # (M) 0.51 k/uL (0-1.0); Neutrophils % (M) 42 %; Nucleated Red Blood Cells 0 /100 WBC (0-0); Total Cells Counted 100
[2019-01-18] MEDS: SODIUM CHLORIDE 0.9% 1,000 ML IV SCH ×2 (07:14→17:36)
[2019-01-18] MEDS: MORPHINE SULFATE 4 MG/ML SYRINGE IV PRN (07:21)
--- NOTE | 2019-01-18 08:31 | XR ---
2 view abdomen HISTORY: Bowel obstruction, pain Correlation to prior abdomen 04/14/2018, CT 01/17/2019 2 views of the abdomen on 3 images Multiple air-fluid levels are present. Lung bases are clear. Postop changes are noted in the lumbosac ral spine. Some gas distended loops of small bowel noted. No pneumoperitoneum evident. IMPRESSION: Findings compatible small bowel obstruction.
[2019-01-18] MEDS: PANTOPRAZOLE 40 MG/10 ML VIAL IV SCH (08:48)
--- NOTE | 2019-01-18 10:17 | P.GSHP ---
History of Present Illness H&P Date: 01/18/19 Chief Complaint: Nausea, vomiting, abdominal pain This a 78-year-old female who has a 48 hour history of nausea vomiting. Patient states she felt quite bloated. She was emergency room. Her CAT scan shows a possible obstruction of the distal transverse colon. Patient currently denies any significant nausea. She's had some mild pain. Past Medical History Past Medical History: Cancer, GERD/Reflux, Hyperlipidemia, Hypertension, Pn eumonia, Sleep Apnea/CPAP/BIPAP Additional Past Medical History / Comment(s): skin ca. heart murmur, tremors(hands).spinal stenosis, has cpap machine History of Any Multi-Drug Resistant Organisms: None Reported Past Surgical History: Back Surgery, Bowel Resection, Orthopedic Surgery, Tonsillectomy Additional Past Surgical History / Comment(s): nilam breast bx nilam mastectomy(prophylactic-mom had hx breast ca), breast surgery, tendon repair lt ankle, hx shingles 20 years ago, L5-6 fusion, cataracts, colonscopies, bowel resection mar 2018 Past Anesthesia/Blood Transfusion Reactions: No Reported Reaction Additional Past Anesthesia/Blood Transfusion Reaction / Comment(s): had blood transfusion-no reaction Past Psychological History: Anxiety Additional Psychological History / Comment(s): . retired. no animals. no recent travel but has no illness with prior travel. reformed smoker no other habits related Smoking Status: Former smoker Past Alcohol Use History: Daily Additional Past Alcohol Use History / Comment(s): started smoking age 16 and quit age 35 smoked 1/2 ppd. drinks 5 ounces wine per day Past Drug Use History: None Reported - Past Family History Mother Family Medical History: Cancer Additional Family Medical History / Comment(s): breast ca Father Additional Family Medical History / Comment(s): born with heart defect- at age 49 Medications and Allergies Home Medications Medication Instructions Recorded Confirmed Type Celecoxib [CeleBREX] 200 mg PO DAILY 04/21/18 01/17/19 History Lidocaine 5% Patch [Lidoderm 5% 1 patch TOPICAL DAILY 04/21/18 01/17/19 History Patch] Lisinopril [Zestril] 10 mg PO DAILY 04/21/18 01/17/19 History Oxybutynin Chloride 5 mg PO BID 04/21/18 01/17/19 History Simvastatin [Zocor] 10 mg PO HS 04/21/18 01/17/19 History Cholecalciferol [Vitamin D3] 50,000 unit PO Q14D 09/16/18 01/17/19 History HYDROcodone/APAP 10-325MG [[place] 1 tab PO DAILY PRN 09/16/18 01/17/19 History 10-325] Allergies Allergy/AdvReac Type Severity Reaction Status Date / Time Penicillins Allergy Unknown Unknown Verified 01/17/19 11:20 codeine Allergy "makes me Verified 01/17/19 11:20 ill" menthol Allergy Rash/Hives Verified 01/17/19 11:20 Surgical - Exam Vital Signs Temp Pulse Resp BP Pulse Ox 98 F 121 H 16 125/74 97 01/17/19 09:10 01/17/19 09:10 01/17/19 09:10 01/17/19 09:10 01/17/19 09:10 - General well developed, well nourished, no distress - Eyes PERRL - ENT normal pinna - Neck no masses - Respiratory normal expansion - Cardiovascular Rhythm: regular - Abdomen Abdomen soft. The abdomen is distended. There is some mild tenderness. There is no rebound or guarding. There is no peritoneal signs. Abdomen: soft Results - Labs 01/18/19 06:23 01/18/19 06:23 Abnormal Lab Results - Last 24 Hours (Table) 01/17/19 01/18/19 01/18/19 Range/Units 09:22 06:23 06:23 RBC 3.54 L (3.80-5.40) m/uL Hgb 11.1 L (11.4-16.0) gm/dL Lymphocytes # (Manual) 0.92 L (1.0-4.8) k/uL Chloride 110 H (98-107) mmol/L Carbon Dioxide 31 H (22-30) mmol/L BUN 25 H (7-17) mg/dL Glucose 120 H (74-99) mg/dL Total Protein 6.0 L (6.3-8.2) g/dL Urine Appearance Cloudy H (Clear) Urine Protein 2+ H (Negative) Urine Glucose (UA) Trace H (Negative) Urine Ketones 1+ H (Negative) Urine Bilirubin 1+ H (Negative) Ur Leukocyte Esterase Small H (Negative) Hyaline Casts 19 H (0-2) /lpf Urine Mucus Moderate H (None) /hpf Diabetes panel 01/18/19 Range/Units 06:23 Sodium 145 (137-145) mmol/L Potassium 4.2 (3.5-5.1) mmol/L Chloride 110 H (98-107) mmol/L Carbon Dioxide 31 H (22-30) mmol/L BUN 25 H (7-17) mg/dL Creatinine 0.83 (0.52-1.04) mg/dL Glucose 120 H (74-99) mg/dL Calcium 9.4 (8.4-10.2) mg/dL AST 32 (14-36) U/L ALT 22 (9-52) U/L Alkaline Phosphatase 56 (38-126) U/L Total Protein 6.0 L (6.3-8.2) g/dL Albumin 3.8 (3.5-5.0) g/dL Calcium panel 01/18/19 Range/Units 06:23 Calcium 9.4 (8.4-10.2) mg/dL Albumin 3.8 (3.5-5.0) g/dL Pituitary panel 01/18/19 Range/Units 06:23 Sodium 145 (137-145) mmol/L Potassium 4.2 (3.5-5.1) mmol/L Chloride 110 H (98-107) mmol/L Carbon Dioxide 31 H (22-30) mmol/L BUN 25 H (7-17) mg/dL Creatinine 0.83 (0.52-1.04) mg/dL Glucose 120 H (74-99) mg/dL Calcium 9.4 (8.4-10.2) mg/dL Adrenal panel 01/18/19 Range/Units 06:23 Sodium 145 (137-145) mmol/L Potassium 4.2 (3.5-5.1) mmol/L Chloride 110 H (98-107) mmol/L Carbon Dioxide 31 H (22-30) mmol/L BUN 25 H (7-17) mg/dL Creatinine 0.83 (0.52-1.04) mg/dL Glucose 120 H (74-99) mg/dL Calcium 9.4 (8.4-10.2) mg/dL Total Bilirubin 0.5 (0.2-1.3) mg/dL AST 32 (14-36) U/L ALT 22 (9-52) U/L Alkaline Phosphatase 56 (38-126) U/L Total Protein 6.0 L (6.3-8.2) g/dL Albumin 3.8 (3.5-5.0) g/dL - Imaging CT scan - abdomen: report reviewed (Questionable distal transverse colon obstruction. Patient's previous small bowel anastomosis is patent.) Assessment and Plan Assessment: Possible colonic obstruction. Patient will undergo computed tomography scan with rectal contrast.
--- NOTE | 2019-01-18 11:59 | CT ---
EXAMINATION TYPE: CT abdomen pelvis wo con DATE OF EXAM: 01/18/2019 COMPARISON: Prior CT 01/17/2019 HISTORY: Partial bowel obstruction CT DLP: 348.1 mGycm Automated exposure control for dose reduction was used. TECHNIQUE: Helical acquisition of images from the lung bases through the pelvis. FINDINGS: Lack of intravenous contrast could compromise sensitivity. LUNG BASES: No significant abnormality is appreciated. AORTA: No significant abnormality is appreciataed. LIVER/GB: Contrast material present in the gallbladder is noted. Findings likely due to vicarious exc retion. PANCREAS: No significant abnormality is seen. SPLEEN: No significant abnormality is seen. ADRENALS: No significant abnormality is seen. KIDNEYS: No significant abnormality is seen. REPRODUCTIVE ORGANS: Not seen. URINARY BLADDER: No significant abnormality is seen. BOWEL: Fluid-filled loops of small and large bowel are noted. Distal colon shows some contrast mater ial present at the level of the rectosigmoid junction, there are some colonic wall folds which show a bnormal thickening within the pelvis and descending colon. Postop changes noted to the mid transverse colon.. FREE AIR: No Free Air is visible. ASCITES: Minimal fluid in the pelvis.. PELVIC ADENOPATHY: None visualized. RETROPERITONEAL ADENOPATHY: No Retroperitoneal Adenopathy visible. OSSEOUS STRUCTURES: No significant abnormality is seen. IMPRESSION: CORRELATE FOR POSSIBLE UNDERLYING ENTERITIS, COLITIS, POSSIBILITIES INCLUDE INFECTIOUS, NONINFECTIOUS , ISCHEMIC ETIOLOGIES, POSSIBLE ASSOCIATED ILEUS. NO FOCAL BOWEL OBSTRUCTION EVIDENT, NONCONTRAST EXA M MAY LIMIT EVALUATION.
[2019-01-18] MEDS: IOPAMIDOL-300 CONTRAST 30 ML VIAL (ORAL USE) PO PRN ×2 (15:21→17:36)
--- NOTE | 2019-01-18 21:42 | CT ---
EXAMINATION TYPE: CT abdomen pelvis wo con DATE OF EXAM: 01/18/2019 COMPARISON: 01/18/2019 INDICATION: Tranverse colon obstruction. DLP: 378.5 mGycm, Automated exposure control for dose reduction was used. CONTRAST: 0 mL of Isovue 300. Study performed with Oral Contrast TECHNIQUE: Axial images were obtained from above the diaphragm to the pubic rami in the axial plane a t 5 mm thick sections. Reconstructed images are reviewed on the computer in the coronal plane. FINDINGS: Limited CT sections are obtained the lung bases. The lung bases are clear. There is a 0.5 cm nodule in the periphery of the right middle lobe near the diaphragm. This was present previously. Small antwon unt of compressive atelectasis is likely present at the lung bases. Bilateral breast prostheses are p resent. CT ABDOMEN: Liver: Normal Spleen: Normal Pancreas: Normal Adrenal glands: The adrenal glands are normal. Gallbladder: Excretion into the biliary system has contrast within the gallbladder. Kidneys: No masses are evident. No hydronephrosis is present. No cysts are present. No renal stone s are identified. Aorta: Vascular calcification is within the aorta. Inferior vena cava: Normal. CT PELVIS: Contrast extends to the proximal descending colon. No obstruction within the transverse colon is evid ent. There is a large redundancy within the transverse colon. There is dilated small bowel loops containing contrast. Contrast passes through small bowel loops wit hout obstruction. No sonographic transition is identified. There are thickened small bowel loops with in the distal ileum just proximal to the terminal ileum. Appendix: Not identified Urinary bladder: Normal. Genitourinary structures: Uterus appears normal. Adnexal regions are clear. Osseous structures: No suspicious lytic or sclerotic lesions. IMPRESSIONS: 1. Dilated small bowel loops without obstruction. 2. Thickened distal ileum just proximal to the terminal ileum without obstruction. Correlate for ilei tis. 3. There is marked redundancy through the transverse colon which extends in the lower pelvis. No obst ruction however is evident. Oral contrast extends to the proximal descending colon. 3. Mild fecal retention within the descending colon
[2019-01-19] MEDS: SODIUM CHLORIDE 0.9% 1,000 ML IV SCH ×3 (03:22→23:57)
[2019-01-19] MEDS: PANTOPRAZOLE 40 MG/10 ML VIAL IV SCH (09:15)
[2019-01-19 09:51] LABS: Basophils % (A) 0 %; Eosinophils # (A) 0.1 k/uL (0-0.7); Eosinophils % (A) 3 %; HCT 32.2 % (34.0-46.0); HGB 10.3 gm/dL (11.4-16.0); Lymphocytes # (A) 0.8 k/uL (1.0-4.8); Lymphocytes % (A) 19 %; MCH 31.1 pg (25.0-35.0); MCV 97.3 fL (80.0-100.0); Mean Platelet Volume 7.8; Monocytes # (A) 0.3 k/uL (0-1.0); Monocytes % (A) 7 %; Neutrophils # (A) 3.1 k/uL (1.3-7.7); Neutrophils % (A) 69 %; Platelet Count 189 k/uL (150-450); RBC 3.31 m/uL (3.80-5.40); RDW 13.2 % (11.5-15.5); WBC 4.4 k/uL (3.8-10.6)
[2019-01-19 10:02] LABS: ALT 17 U/L (9-52); AST 25 U/L (14-36); Alkaline Phosphatase 58 U/L (38-126); Anion Gap 10 mmol/L; Blood Urea Nitrogen 16 mg/dL (7-17); Calcium 8.8 mg/dL (8.4-10.2); Carbon Dioxide 17 mmol/L (22-30); Chloride 114 mmol/L (98-107); Glucose 61 mg/dL (74-99); Potassium 4.1 mmol/L (3.5-5.1); Sodium 141 mmol/L (137-145); Total Bilirubin 0.4 mg/dL (0.2-1.3); Total Protein 5.2 g/dL (6.3-8.2)
--- NOTE | 2019-01-19 10:48 | P.PN ---
Subjective Progress Note Date: 01/19/19 Principal diagnosis: Enteritis The patient feels much better today. She had 3 bowel movements yesterday. Her repeat CAT scan shows no evidence of colonic obstruction. There may be enteritis. Objective - Vital Signs Vital signs: Vital Signs Temp 98.2 F 01/19/19 08:00 Pulse 82 01/19/19 08:00 Resp 16 01/19/19 08:00 BP 111/59 01/19/19 08:00 Pulse Ox 95 01/19/19 08:00 Intake & Output 01/18/19 01/19/19 01/19/19 18:59 06:59 18:59 Intake Total 100 Balance 100 Intake: Intake, IV Titration 100 Amount Sodium Chloride 0.9% 1, 100 000 ml @ 100 mls/hr IV . Q10H [facility] Rx#:[id number] Other: Voiding Method Toilet # Voids 3 2 # Bowel Movements 1 - Constitutional General appearance: Present: cooperative - Gastrointestinal Gastrointestinal Comment(s): Abdomen soft. Distention is improved. There is some minimal tenderness. There is no rebound or guarding. - Labs CBC & Chem 7: 01/19/19 09:32 01/19/19 09:32 Labs: Abnormal Lab Results - Last 24 Hours (Table) 01/19/19 01/19/19 Range/Units 09:32 09:32 RBC 3.31 L (3.80-5.40) m/uL Hgb 10.3 L (11.4-16.0) gm/dL Hct 32.2 L (34.0-46.0) % Lymphocytes # 0.8 L (1.0-4.8) k/uL Chloride 114 H (98-107) mmol/L Carbon Dioxide 17 L (22-30) mmol/L Glucose 61 L (74-99) mg/dL Total Protein 5.2 L (6.3-8.2) g/dL Albumin 3.0 L (3.5-5.0) g/dL Assessment and Plan Assessment: Resolving enteritis. Patient will start clear liquids today.
[2019-01-19] MEDS: ACETAMINOPHEN TAB 325 MG TAB PO PRN (13:23)
[2019-01-19] MEDS: HEPARIN SODIUM,PORCINE 5,000 UNIT/ML 1 ML VIAL SQ SCH (20:32)
[2019-01-19] MEDS: metroNIDAZOLE-NS PMX 500 MG in SALINE 1 100ML.BAG IVPB SCH (20:33)
[2019-01-19] MEDS: LEVOFLOXACIN 500MG-D5W PMX 500 MG in DEXTROSE/WATER 1 100ML.BAG IVPB SCH (20:33)
[2019-01-20] MEDS: HEPARIN SODIUM,PORCINE 5,000 UNIT/ML 1 ML VIAL SQ SCH ×3 (02:51→20:30)
[2019-01-20] MEDS: metroNIDAZOLE-NS PMX 500 MG in SALINE 1 100ML.BAG IVPB SCH ×5 (03:38→20:34)
[2019-01-20] MEDS: MORPHINE SULFATE 4 MG/ML SYRINGE IV PRN (04:21)
--- NOTE | 2019-01-20 07:38 | P.PN ---
Subjective Progress Note Date: 01/20/19 Principal diagnosis: Enteritis Patient admitted over the weekend with abdominal pain bloating and nausea vomiting and decreased bowel activity. Patient has had 3 separate CAT scans to try to identify the etiology of the patient's presentation. Thankfully during that time the patient's symptoms have improved. Her pain has resolved. Her bloating is for the most part gone. She has had more regular bowel activity. Denies rectal bleeding or melena. No mucousy stools. She has been afebrile. She had significant bandemia on one of her previous CBC however that resolved. Today's x-rays are improved as well. Objective - Vital Signs Vital signs: Vital Signs Temp 98.8 F 01/20/19 01:36 Pulse 86 01/20/19 01:36 Resp 18 01/20/19 01:36 BP 139/67 01/20/19 01:36 Pulse Ox 97 01/20/19 01:36 Intake & Output 01/19/19 01/20/19 01/20/19 18:59 06:59 18:59 Intake Total 1600 1860 Balance 1600 1860 Intake: IV 800 Sodium Chloride 0.9% 1, 800 000 ml @ 100 mls/hr IV . Q10H [facility] Rx#:[id number] Intake, IV Titration 1300 Amount Levofloxacin 500Mg-D5w 100 Pmx 500 mg In Dextrose/ Water 1 100ml.bag @ 100 mls/hr IVPB HS [facility] Rx#: [id number] Sodium Chloride 0.9% 1, 1000 000 ml @ 100 mls/hr IV . Q10H [facility] Rx#:[id number] metroNIDAZOLE-NS PMX 500 200 mg In Saline 1 100ml.bag @ 100 mls/hr IVPB Q8H [facility] Rx#:[id number] Oral 800 560 Other: Voiding Method Toilet # Voids 2 2 - Exam Abdomen: Soft, mild left upper quadrant tenderness, nondistended - Labs CBC & Chem 7: 01/19/19 09:32 01/19/19 09:32 Labs: Abnormal Lab Results - Last 24 Hours (Table) 01/19/19 01/19/19 Range/Units 09:32 09:32 RBC 3.31 L (3.80-5.40) m/uL Hgb 10.3 L (11.4-16.0) gm/dL Hct 32.2 L (34.0-46.0) % Lymphocytes # 0.8 L (1.0-4.8) k/uL Chloride 114 H (98-107) mmol/L Carbon Dioxide 17 L (22-30) mmol/L Glucose 61 L (74-99) mg/dL Total Protein 5.2 L (6.3-8.2) g/dL Albumin 3.0 L (3.5-5.0) g/dL Assessment and Plan (1) Partial bowel obstruction Narrative/Plan: Patient with presentation of abdominal discomfort and findings of bowel wall th ickening on CAT scan. Enteritis either from resolving small bowel obstruction or from infectious etiology suspected. Continue empiric antibiotics. Gradually advance diet. Discharge later today or tomorrow. Current Visit: Yes Status: Acute Code(s): K56.600 - PARTIAL INTESTINAL OBSTRUCTION, UNSPECIFIED TO CAUSE SNOMED Code(s): 15323107
[2019-01-20 08:13] LABS: Anion Gap 8 mmol/L; Blood Urea Nitrogen 6 mg/dL (7-17); Calcium 8.8 mg/dL (8.4-10.2); Carbon Dioxide 24 mmol/L (22-30); Chloride 108 mmol/L (98-107); Glucose 105 mg/dL (74-99); Potassium 3.3 mmol/L (3.5-5.1); Sodium 140 mmol/L (137-145)
--- NOTE | 2019-01-20 08:42 | XR ---
2 view abdomen HISTORY: Enteritis 2 views the abdomen correlated to CT and plain film the abdomen 01/18/2019 Contrast material is present within the colon and distal small bowel. Postop changes are noted in the lumbosacral junction. Subsegmental atelectatic changes noted at the lung bases. No evident pneumoper itoneum. IMPRESSION: No obstruction evident
[2019-01-20] MEDS: ONDANSETRON 4 MG/2 ML VIAL IVP PRN (09:24)
[2019-01-20] MEDS: PANTOPRAZOLE 40 MG/10 ML VIAL IV SCH (09:24)
[2019-01-20] MEDS: SODIUM CHLORIDE 0.9% 1,000 ML IV SCH (09:32)
[2019-01-20 09:51] LABS: Basophils % (A) 0 %; Eosinophils # (A) 0.2 k/uL (0-0.7); Eosinophils % (A) 5 %; HGB 10.3 gm/dL (11.4-16.0); Lymphocytes % (A) 25 %; MCH 31.4 pg (25.0-35.0); MCHC 33.2 g/dL (31.0-37.0); MCV 94.6 fL (80.0-100.0); Monocytes # (A) 0.4 k/uL (0-1.0); Monocytes % (A) 9 %; Neutrophils # (A) 2.3 k/uL (1.3-7.7); Neutrophils % (A) 59 %; Platelet Count 194 k/uL (150-450); RBC 3.27 m/uL (3.80-5.40); RDW 13.2 % (11.5-15.5); WBC 3.9 k/uL (3.8-10.6)
--- NOTE | 2019-01-20 18:12 | US ---
EXAMINATION TYPE: US venous doppler duplex LE LT DATE OF EXAM: 01/20/2019 5:40 PM COMPARISON: NONE CLINICAL HISTORY: Left lower extremity pain and swelling. left leg swelling. SIDE PERFORMED: Left TECHNIQUE: The lower extremity deep venous system is examined utilizing real time linear array sonog albert with graded compression, doppler sonography and color-flow sonography. VESSELS IMAGED: External Iliac Vein (EIV) Common Femoral Vein Deep Femoral Vein Greater Saphenous Vein * Femoral Vein Popliteal Vein Small Saphenous Vein * Proximal Calf Veins (* superficial vessels) FINDINGS: Grayscale, color doppler, spectral doppler imaging performed of the deep veins of the lower extremities. There is normal flow, compressibility, vascular waveforms. IMPRESSION: Negative for DVT, left lower extremity.
[2019-01-20] MEDS ORDERED: DILTIAZEM DRIP BOLUS FROM BAG 1 MG SOLN IV ONE (21:01)
[2019-01-20] MEDS: LEVOFLOXACIN 500MG-D5W PMX 500 MG in DEXTROSE/WATER 1 100ML.BAG IVPB SCH (21:53)
[2019-01-20 22:48] VITALS: RESP 18
[2019-01-20] MEDS: DILTIAZEM 125 MG in SODIUM CHLORIDE 0.9% 100 ML IV SCH (22:49)
[2019-01-20] MEDS: TEMAZEPAM 15 MG CAP PO SCH (23:06)
[2019-01-21] MEDS: HEPARIN SODIUM,PORCINE 5,000 UNIT/ML 1 ML VIAL SQ SCH (04:09)
[2019-01-21] MEDS: metroNIDAZOLE-NS PMX 500 MG in SALINE 1 100ML.BAG IVPB SCH ×3 (04:10→20:21)
[2019-01-21] MEDS: ACETAMINOPHEN TAB 325 MG TAB PO PRN ×2 (05:11→10:05)
[2019-01-21] MEDS: DILTIAZEM 125 MG in SODIUM CHLORIDE 0.9% 100 ML IV SCH (05:12)
[2019-01-21] MEDS: PANTOPRAZOLE 40 MG/10 ML VIAL IV SCH (07:56)
--- NOTE | 2019-01-21 09:37 | P.CRDCN ---
History of Present Illness Consult date: 01/21/19 Requesting physician: Juan Barajas Consult reason: atrial fibrillation Chief complaint: abdominal discomfort History of present illness: This is a pleasant 78-year-old female who follows with Dr. bean as her primary care doctor, she also states that she has [facility] and [facility] seen Dr. Aguilar in the office. She has a known history of hypertension, hyperlipidemia, nonsmoker, nondiabetic, sleep apnea, she has one alcoholic beverage per day. Initially presented to the hospital on this occasion with symptoms of nausea and vomiting, she was feeling quite bloated and uncomfortable. Her initial CAT scan revealed a possible obstruction of the distal transverse colon, which has appeared at this time to have resolved. Cardiology consultation was requested because the patient regarding to atrial fibrillation with a rapid ventricular response. This morning she is back in normal sinus rhythm, at the time of my examination she did have another episode of atrial fibrillation and again is back in normal sinus rhythm. According to the patient she has no prior documented history of atrial fibrillation. The patient does state however that on occasion she gets symptoms of discomfort in the right side of her chest that goes up into her neck area, at times that last up to an hour in duration and then completely dissipates. She denies any overt palpitations dizziness or lightheadedness. She is currently on a Cardizem drip at 7-1/2 mg per hour, and subcu heparin. I did have a discussion with the patient regarding the importance of anticoagulation for stroke prevention. Past Medical History Past Medical History: Cancer, GERD/Reflux, Hyperlipidemia, Hypertension, Pneumonia, Sleep Apnea/CPAP/BIPAP Additional Past Medical History / Comment(s): skin ca. heart murmur, tremors(hands).spinal stenosis, has cpap machine History of Any Multi-Drug Resistant Organisms: None Reported Past Surgical History: Back Surgery, Bowel Resection, Orthopedic Surgery, Tonsillectomy Additional Past Surgical History / Comment(s): nilam breast bx nilam mastectomy(prophylactic-mom had hx breast ca), breast surgery, tendon repair lt ankle, hx shingles 20 years ago, L5-6 fusion, cataracts, colonscopies, bowel resection mar 2018 Past Anesthesia/Blood Transfusion Reactions: No Reported Reaction Additional Past Anesthesia/Blood Transfusion Reaction / Comment(s): had blood transfusion-no reaction Past Psychological History: Anxiety Additional Psychological History / Comment(s): . retired. no animals. no recent travel but has no illness with prior travel. reformed smoker no other habits related Smoking Status: Former smoker Past Alcohol Use History: Daily Additional Past Alcohol Use History / Comment(s): started smoking age 16 and quit age 35 smoked 1/2 ppd. drinks 5 ounces wine per day Past Drug Use History: None Reported - Past Family History Mother Family Medical History: Cancer Additional Family Medical History / Comment(s): breast ca Father Additional Family Medical History / Comment(s): born with heart defect- at age 49 Medications and Allergies Home Medications Medication Instructions Recorded Confirmed Type Celecoxib [CeleBREX] 200 mg PO DAILY 04/21/18 01/17/19 History Lidocaine 5% Patch [Lidoderm 5% 1 patch TOPICAL DAILY 04/21/18 01/17/19 History Patch] Lisinopril [Zestril] 10 mg PO DAILY 04/21/18 01/17/19 History Oxybutynin Chloride 5 mg PO BID 04/21/18 01/17/19 History Simvastatin [Zocor] 10 mg PO HS 04/21/18 01/17/19 History Cholecalciferol [Vitamin D3] 50,000 unit PO Q14D 09/16/18 01/17/19 History HYDROcodone/APAP 10-325MG [[place] 1 tab PO DAILY PRN 09/16/18 01/17/19 History 10-325] Allergies Allergy/AdvReac Type Severity Reaction Status Date / Time Penicillins Allergy Unknown Unknown Verified 01/17/19 11:20 codeine Allergy "makes me Verified 01/17/19 11:20 ill" menthol Allergy Rash/Hives Verified 01/17/19 11:20 Physical Exam Vitals: Vital Signs Temp Pulse Pulse Pulse Resp BP Pulse Ox 01/21/19 08:00 98.2 F 82 82 87 18 123/63 95 01/21/19 04:00 97.2 F L 82 82 18 121/59 94 L 01/21/19 00:00 97.7 F 102 H 100 17 143/69 95 01/20/19 22:47 98.6 F 96 18 142/74 96 01/20/19 21:31 144 H 16 153/85 96 01/20/19 20:22 148 H 01/20/19 20:05 98.6 F 135 H 18 135/84 94 L 01/20/19 20:04 142 H 01/20/19 14:41 98.4 F 82 16 109/60 97 Intake and Output 01/20/19 01/21/19 01/21/19 22:59 06:59 14:59 Intake Total 47.875 Balance 47.875 Intake: Intake, IV Titration 47.875 Amount Diltiazem 125 mg In 47.875 Sodium Chloride 0.9% 100 ml @ 7.5 MG/HR 7.5 mls/hr IV .[id number] [facility] Rx#: [id number] Other: Voiding Method Toilet Toilet # Voids 1 1 Weight 57.4 kg PHYSICAL EXAMINATION: GENERAL: 78-year-old female in no acute distress at the time of my examination HEENT: Head is atraumatic, normocephalic. Pupils equal, round. Sclera anicteric. Conjunctiva are clear. Mucous membranes of the mouth are moist. Neck is supple. There is no elevated jugular venous pressure. No carotid bruit is heard. HEART EXAMINATION: Heart S1, S2 normal. No murmur or gallop heard. CHEST EXAMINATION: Lungs are clear to auscultation and precussion. No chest wall tenderness is noted on palpation or with deep breathing. ABDOMEN: Soft, nontender. Bowel sounds are heard. No organomegaly noted. EXTREMITIES:[ 2+ peripheral pulses with trace evidence of peripheral edema to the left lower extremity, no edema to the right lower extremity. NEUROLOGIC patient is awake, alert and oriented 3 . Results 01/20/19 07:32 01/20/19 07:32 CBC 01/20/19 Range/Units 07:32 WBC 3.9 (3.8-10.6) k/uL RBC 3.27 L (3.80-5.40) m/uL Hgb 10.3 L (11.4-16.0) gm/dL Hct 31.0 L (34.0-46.0) % Plt Count 194 (150-450) k/uL Current Medications Generic Name Dose Route Start Last Admin Trade Name Freq PRN Reason Stop Dose Admin Acetaminophen 650 mg 01/19/19 12:38 01/21/19 05:11 Tylenol Tab PO 650 mg Q6HR PRN Administration Fever and/ or Pain Heparin Sodium (Porcine) 5,000 unit 01/19/19 20:00 01/21/19 04:09 Heparin SQ 5,000 unit Q8H RONAN Administration Levofloxacin 500 mg/ IV 100 mls @ 100 mls/hr 01/19/19 21:00 01/20/19 21:53 Solution IVPB 100 mls/hr HS RONAN Administration Metronidazole 500 mg/ IV 100 mls @ 100 mls/hr 01/19/19 20:00 01/21/19 04:10 Solution IVPB 100 mls/hr Q8H RONAN Administration Diltiazem HCl 125 mg/ Sodium 125 mls @ 7.5 mls/hr 01/20/19 21:15 01/21/19 05:12 Chloride IV 7.5 mg/hr .[id number] RONAN 7.5 mls/hr Administration 7.5 MG/HR Morphine Sulfate 4 mg 01/17/19 12:22 01/20/19 04:21 Morphine Sulfate (Inj) IV 4 mg Q4HR PRN Administration Severe Pain Naloxone HCl 0.2 mg 01/17/19 12:22 Narcan IV Q2M PRN Opioid Reversal Ondansetron HCl 4 mg 01/17/19 12:22 01/20/19 09:24 Zofran IVP 4 mg Q8HR PRN Administration Nausea And Vomiting Pantoprazole Sodium 40 mg 01/18/19 09:00 01/21/19 07:56 Protonix IV 40 mg DAILY RONAN Administration Temazepam 15 mg 01/20/19 21:00 01/20/19 23:06 Restoril PO 15 mg HS RONAN Administration Intake and Output 01/20/19 01/21/19 01/21/19 22:59 06:59 14:59 Intake Total 47.875 Balance 47.875 Intake: Intake, IV Titration 47.875 Amount Diltiazem 125 mg In 47.875 Sodium Chloride 0.9% 100 ml @ 7.5 MG/HR 7.5 mls/hr IV .[id number] [facility] Rx#: [id number] Other: Voiding Method Toilet Toilet # Voids 1 1 Weight 57.4 kg 01/20/19 07:32 01/20/19 07:32 EKG Interpretations (text) Initial EKG on presentation here showed a sinus tachycardia with no acute changes. Subsequent EKG showed atrial fibrillation with a rapid ventricular response Assessment and Plan Plan: Assessment and plan #1 symptoms of nausea and vomiting with associated abdominal bloating, possible small bowel obstruction, resolving. #2 paroxysmal atrial fibrillation #3 hypertension #4 hyperlipidemia #5 sleep apnea #6 hypokalemia Plan We will discontinue the IV Cardizem drip, obtain echocardiogram with Doppler study. Replace potassium We will also discontinue the heparin and start the patient on Eliquis. We will also consider starting the patient on Rythmol to maintain a sinus rhythm if the LV function is normal. Add beta ismael. Further recommendations to follow. DNP note has been reviewed, I agree with a documented findings and plan of care. Patient was seen and examined.
[2019-01-21] MEDS ORDERED: POTASSIUM CHLORIDE ER 20 MEQ TAB.ER PO SCH (10:00)
[2019-01-21] MEDS: APIXABAN 5 MG TAB PO SCH ×2 (10:01→20:22)
[2019-01-21] MEDS: METOPROLOL TARTRATE 25 MG TAB PO SCH ×2 (10:01→20:22)
[2019-01-21] MEDS: POTASSIUM CHLORIDE 20 MEQ in WATER FOR INJECTION 1 100ML.BAG IVPB SCH ×3 (10:53→17:24)
[2019-01-21 11:13] LABS: Anion Gap 5 mmol/L; Blood Urea Nitrogen 4 mg/dL (7-17); Calcium 8.8 mg/dL (8.4-10.2); Carbon Dioxide 28 mmol/L (22-30); Chloride 110 mmol/L (98-107); Glucose 104 mg/dL (74-99); Potassium 3.7 mmol/L (3.5-5.1); Sodium 143 mmol/L (137-145)
--- NOTE | 2019-01-21 11:54 | P.PN ---
Subjective Progress Note Date: 01/21/19 Principal diagnosis: Enteritis Patient last night developed tachycardia. EKG confirmed atrial fibrillation with rapid ventricular rate. The patient initially was asymptomatic however this morning she apparently felt woozy. She has been seen by cardiology. She was started on IV Cardizem. A switching her to oral. Echo is pending. Otherwise doing well. Denies abdominal pain. Having normal bowel function. Objective - Vital Signs Vital signs: Vital Signs Temp 98.1 F 01/21/19 10:54 Pulse 70 01/21/19 10:54 Resp 18 01/21/19 10:54 BP 123/61 01/21/19 10:54 Pulse Ox 95 01/21/19 10:54 Intake & Output 01/20/19 01/21/19 01/21/19 18:59 06:59 18:59 Intake Total 47.875 Balance 47.875 Weight 57.4 kg Intake: Intake, IV Titration 47.875 Amount Diltiazem 125 mg In 47.875 Sodium Chloride 0.9% 100 ml @ 7.5 MG/HR 7.5 mls/hr IV .[id number] [facility] Rx#: [id number] Other: Voiding Method Toilet # Voids 1 1 - Exam Abdomen: Soft, nondistended, nontender - Labs CBC & Chem 7: 01/20/19 07:32 01/21/19 10:33 Labs: Abnormal Lab Results - Last 24 Hours (Table) 01/21/19 Range/Units 10:33 Chloride 110 H (98-107) mmol/L BUN 4 L (7-17) mg/dL Glucose 104 H (74-99) mg/dL Assessment and Plan (1) Partial bowel obstruction Narrative/Plan: Patient with enteritis likely related to resolving small bowel obstruction. Recent findings now of paroxysmal atrial fibrillation. Continue cardiology workup. Anticipate possible discharge tomorrow. Current Visit: Yes Status: Acute Code(s): K56.600 - PARTIAL INTESTINAL OBSTRUCTION, UNSPECIFIED TO CAUSE SNOMED Code(s): 31913237
[2019-01-21] MEDS: MORPHINE SULFATE 4 MG/ML SYRINGE IV PRN ×2 (12:09→16:43)
--- NOTE | 2019-01-21 15:14 | P.CONS ---
History of Present Illness - Reason for Consult Consult date: 01/21/19 Medical management Requesting physician: Juan Barajas - Chief Complaint Small bowel obstruction. - History of Present Illness This is a 78-year-old female one of Dr. John with a previous medical history significant for hypertension and hypertensive cardiovascular disease, hyperlipidemia, GERD, history of sleep apnea currently on a CPAP, patient was admitted to the hospital back on 01/17/2019 due to increased abdominal pain and distention with multiple episodes of vomiting that happened Saturday night early Saturday morning ended up coming to the ER she did not have an NG tube placed at that time she had a computed tomography scan of the abdomen and pelvis that showed a partial small bowel obstruction she was admitted to the hospital under general surgery we have been asked to see the patient yesterday for medical management, patient developed to have a significant tachycardia on the floor the nurse contacted me and an EKG was done cardiac enzymes were done and the patient was sent to telemetry unit she was in atrial fibrillation with rapid ventricular response she was placed on Cardizem drip, and the patient was seen in consultation by cardiology who switch her to oral beta blockers and start her on Eliquis for stroke prevention. By the time I came to see the patient she was in sinus rhythm. Review of Systems Constitutional: Denies anorexia, Denies chronic headaches, Denies chronic pain, Denies weakness, Denies weight gain Eyes: denies blurred vision, denies bulging eye, denies decreased vision Ears: deny: decreased hearing Ears, nose, mouth and throat: Denies dysphagia, Denies neck lump, Denies sore throat Breasts: absent: as per HPI (Bilateral prophylactic mastectomies) Cardiovascular: Reports rapid heart beat, Denies chest pain, Denies decreased exercise tolerance, Denies dyspnea on exertion, Denies lightheadedness, Denies shortness of breath, Denies syncope Respiratory: Reports sleep apnea, Denies congestion, Denies cough with sputum, Denies home oxygen, Denies snoring, Denies wheezing Gastrointestinal: Reports bloating, Denies excessive gas, Denies heartburn, Denies loss of appetite, Denies melena, Denies nausea, Denies vomiting Genitourinary: Reports nocturia, Denies dysuria Menstruation: Reports postmenopausal Musculoskeletal: Denies myalgias Musculoskeletal: absent: ankle pain, ankle stiffness, ankle swelling, elbow pain, elbow stiffness, elbow swelling, foot pain, foot stiffness, foot swelling, hand pain, hand stiffness, hand swelling, hip pain, hip stiffness, hip swelling, knee pain, knee stiffness, knee swelling, shoulder pain, shoulder stiffness, shoulder swelling, wrist pain, wrist stiffness, wrist swelling Integumentary: Denies pruritus, Denies rash Neurological: Denies numbness, Denies weakness Psychiatric: Denies anxiety, Denies depression Endocrine: Denies fatigue, Denies weight change Past Medical History Past Medical History: Atrial Fibrillation, Cancer, GERD/Reflux, Hyperlipidemia, Hypertension, Pneumonia, Sleep Apnea/CPAP/BIPAP Additional Past Medical History / Comment(s): skin ca. heart murmur, tremors(h ands).spinal stenosis, has cpap machine History of Any Multi-Drug Resistant Organisms: None Reported Past Surgical History: Back Surgery, Bowel Resection, Orthopedic Surgery, Tonsillectomy Additional Past Surgical History / Comment(s): nilam breast bx nilam mastectomy(prophylactic-mom had hx breast ca), breast surgery, tendon repair lt ankle, hx shingles 20 years ago, L5-6 fusion, cataracts, colonscopies, bowel resection mar 2018 Past Anesthesia/Blood Transfusion Reactions: No Reported Reaction Additional Past Anesthesia/Blood Transfusion Reaction / Comm: had blood transfu dang-no reaction Past Psychological History: Anxiety Additional Psychological History / Comment(s): . retired. no animals. no recent travel but has no illness with prior travel. reformed smoker no other habits related Smoking Status: Former smoker Past Alcohol Use History: Daily Additional Past Alcohol Use History / Comment(s): started smoking age 16 and quit age 35 smoked 1/2 ppd. drinks 5 ounces wine per day Past Drug Use History: None Reported - Past Family History Mother Family Medical History: Cancer (Mother at age of 94 after she was in hospice care for 4 years due to breast cancer.) Additional Family Medical History / Comment(s): breast ca Father Additional Family Medical History / Comment(s): born with heart defect- at age 49 Brother(s) Family Medical History: COPD (Patient had one brother who from COPD and alcoholism.) Sister(s) Family Medical History: No Reported History (Patient has 2 sisters no major medical problems.) Daughter(s) Family Medical History: No Reported History (Patient has 2 daughters no major medical problems .) Son(s) Family Medical History: No Reported History (Patient has one son no major medical problems.) Medications and Allergies Home Medications Medication Instructions Recorded Confirmed Type Celecoxib [CeleBREX] 200 mg PO DAILY 04/21/18 01/17/19 History Lidocaine 5% Patch [Lidoderm 5% 1 patch TOPICAL DAILY 04/21/18 01/17/19 History Patch] Lisinopril [Zestril] 10 mg PO DAILY 04/21/18 01/17/19 History Oxybutynin Chloride 5 mg PO BID 04/21/18 01/17/19 History Simvastatin [Zocor] 10 mg PO HS 04/21/18 01/17/19 History Cholecalciferol [Vitamin D3] 50,000 unit PO Q14D 09/16/18 01/17/19 History HYDROcodone/APAP 10-325MG [[place] 1 tab PO DAILY PRN 09/16/18 01/17/19 History 10-325] Allergies Allergy/AdvReac Type Severity Reaction Status Date / Time Penicillins Allergy Unknown Unknown Verified 01/17/19 11:20 codeine Allergy "makes me Verified 01/17/19 11:20 ill" menthol Allergy Rash/Hives Verified 01/17/19 11:20 Physical Exam Vitals: Vital Signs Temp Pulse Pulse Pulse Resp BP Pulse Ox 01/21/19 12:00 82 82 70 01/21/19 10:54 98.1 F 70 18 123/61 95 01/21/19 08:00 98.2 F 82 82 87 18 123/63 95 01/21/19 04:00 97.2 F L 82 82 18 121/59 94 L 01/21/19 00:00 97.7 F 102 H 100 17 143/69 95 01/20/19 22:47 98.6 F 96 18 142/74 96 01/20/19 21:31 144 H 16 153/85 96 01/20/19 20:22 148 H 01/20/19 20:05 98.6 F 135 H 18 135/84 94 L 01/20/19 20:04 142 H Intake and Output 01/20/19 01/21/19 01/21/19 22:59 06:59 14:59 Intake Total 47.875 Balance 47.875 Intake: Intake, IV Titration 47.875 Amount Diltiazem 125 mg In 47.875 Sodium Chloride 0.9% 100 ml @ 7.5 MG/HR 7.5 mls/hr IV .[id number] [facility] Rx#: [id number] Other: Voiding Method Toilet Toilet # Voids 1 1 1 Weight 57.4 kg - Constitutional General appearance: no acute distress, thin - EENT Eyes: anicteric sclerae, EOMI, PERRLA, no ptosis, no scleral icterus, normal appearance ENT: hearing grossly normal, NA/AT, normal oropharynx, no thrush Ears: bilateral: normal - Neck Neck: no lymphadenopathy, normal ROM, no rigidity, no stridor, no thyromegaly Carotids: bilateral: upstroke normal Thyroid: bilateral: normal size - Respiratory Respiratory: bilateral: diminished, negative: dullness, rales, rhonchi, wheezing, prolonged expiration, prolonged inspiration - Cardiovascular Rhythm: regular Heart sounds: normal: S1, S2 Abnormal Heart Sounds: systolic murmur, no S3 Gallop, no S4 Gallop - Gastrointestinal General gastrointestinal: normal bowel sounds, soft, no splenomegaly, no tenderness, no umbilical hernia, no ventral hernia - Integumentary Integumentary: normal, normal turgor - Musculoskeletal Musculoskeletal: gait normal, strength equal bilaterally - Psychiatric Psychiatric: A&O x's 3, appropriate affect, intact judgment & insight Results CBC & Chem 7: 01/20/19 07:32 01/21/19 10:33 Labs: Abnormal Lab Results - Last 24 Hours (Table) 01/21/19 Range/Units 10:33 Chloride 110 H (98-107) mmol/L BUN 4 L (7-17) mg/dL Glucose 104 H (74-99) mg/dL Assessment and Plan Assessment: Assessment and plan: 1. Partial small bowel obstruction. Has resolved. 2. Paroxysmal atrial fibrillation currently in sinus rhythm. Continue patient on metoprolol 25 mg orally twice every day as well as Eliquis 5 mg orally twice every day. 3. Hypertension and hypertensive cardiovascular disease. Continue lisinopril 10 mg orally once every day, metoprolol 25 mg orally twice every day. 4. Hyperlipidemia. Continue Lipitor 20 mg orally once every day. 5. Hypokalemia. Status post placement. 6. GERD. Continue Protonix 40 mg IV push every 24 hours. 7. DVT prophylaxis. Currently on Eliquis 8. GI prophylaxis. Continue PPI. 9. Thank you Dr. Barajas for the consult we will follow the patient with you.
[2019-01-21] MEDS: TEMAZEPAM 15 MG CAP PO SCH (20:22)
[2019-01-21] MEDS ORDERED: ATORVASTATIN 20 MG TAB PO SCH (21:00)
[2019-01-21] MEDS: LEVOFLOXACIN 500MG-D5W PMX 500 MG in DEXTROSE/WATER 1 100ML.BAG IVPB SCH (21:58)
[2019-01-22] MEDS: metroNIDAZOLE-NS PMX 500 MG in SALINE 1 100ML.BAG IVPB SCH ×2 (06:56→12:02)
[2019-01-22 07:22] LABS: Anion Gap 2 mmol/L; Blood Urea Nitrogen 4 mg/dL (7-17); Calcium 9.3 mg/dL (8.4-10.2); Carbon Dioxide 29 mmol/L (22-30); Chloride 111 mmol/L (98-107); Glucose 106 mg/dL (74-99); Potassium 4.4 mmol/L (3.5-5.1); Sodium 142 mmol/L (137-145)
[2019-01-22] MEDS: METOPROLOL TARTRATE 25 MG TAB PO SCH (09:16)
[2019-01-22] MEDS: PANTOPRAZOLE 40 MG/10 ML VIAL IV SCH (09:16)
[2019-01-22] MEDS: APIXABAN 5 MG TAB PO SCH (09:16)
[2019-01-22] MEDS ORDERED: LISINOPRIL 10 MG TAB PO SCH (11:45)
[2019-01-22 11:46] VITALS: BP 182/83; PULSE 77; TEMP 99.1
--- NOTE | 2019-01-22 12:58 | P.PN ---
Subjective Progress Note Date: 01/22/19 This is a 78-year-old female one of Dr. oJhn with a previous medical history significant for hypertension and hypertensive cardiovascular disease, hyperlipidemia, GERD, history of sleep apnea currently on a CPAP, patient was admitted to the hospital back on 01/17/2019 due to increased abdominal pain and distention with multiple episodes of vomiting that happened Saturday night early Saturday morning ended up coming to the ER she did not have an NG tube placed at that time she had a computed tomography scan of the abdomen and pelvis that showed a partial small bowel obstruction she was admitted to the hospital under general surgery we have been asked to see the patient yesterday for medical management, patient developed to have a significant tachycardia on the floor the nurse contacted me and an EKG was done cardiac enzymes were done and the patient was sent to telemetry unit she was in atrial fibrillation with rapid ventricular response she was placed on Cardizem drip, and the patient was seen in consultation by cardiology who switch her to oral beta blockers and start her on Eliquis for stroke prevention. By the time I came to see the patient she was in sinus rhythm. 01/22: Patient is currently in a sinus rhythm. She is currently on eliquis and rn case management has checked co-pay which is $40 per month. Patient is also on Lopressor 25 mg twice daily. Echocardiogram has been obtained and report is pending. Heart rate is running in the 70s and 80s, blood pressure 142/76, pulse ox 96% on room air. Patient has been afebrile. Patient will be resumed on lisinopril and to continue this at home as well. Patient is continued on Levaquin and Flagyl. Patient is currently on a low fiber diet. Patient has been cleared for discharge by cardiology and general surgery. We will place a discharge order and complete medication reconciliation. Patient is being discharged today in stable condition. Objective - Vital Signs Vital signs: Vital Signs Temp 98.2 F 01/22/19 08:00 Pulse 87 01/22/19 08:00 Resp 18 01/22/19 08:00 BP 142/76 01/22/19 08:00 Pulse Ox 96 01/22/19 08:00 Intake & Output 01/21/19 01/22/19 01/22/19 18:59 06:59 18:59 Intake Total 180 300 240 Balance 180 300 240 Intake: Intake, IV Titration 300 Amount Levofloxacin 500Mg-D5w 100 Pmx 500 mg In Dextrose/ Water 1 100ml.bag @ 100 mls/hr IVPB HS [facility] Rx#: [id number] Potassium Chloride 20 meq 100 In Water For Injection 1 100ml.bag @ 50 mls/hr IVPB Q3H [facility] Rx#: [id number] metroNIDAZOLE-NS PMX 500 100 mg In Saline 1 100ml.bag @ 100 mls/hr IVPB Q8H [facility] Rx#:[id number] Oral 180 240 Other: Voiding Method Toilet # Voids 1 - Exam Review of Systems Constitutional: Denies anorexia, Denies chronic headaches, Denies chronic pain, Denies weakness, Denies weight gain Eyes: denies blurred vision, denies bulging eye, denies decreased vision Ears: deny: decreased hearing Ears, nose, mouth and throat: Denies dysphagia, Denies neck lump, Denies sore throat Breasts: absent: as per HPI (Bilateral prophylactic mastectomies) Cardiovascular: Denies rapid heart beat, Denies chest pain, Denies decreased exercise tolerance, Denies dyspnea on exertion, Denies lightheadedness, Denies shortness of breath, Denies syncope, reports high blood pressure Respiratory: Reports sleep apnea, Denies congestion, Denies cough with sputum, Denies home oxygen, Denies snoring, Denies wheezing Gastrointestinal: Reports bloating, Denies excessive gas, Denies heartburn, Denies loss of appetite, Denies melena, Denies nausea, Denies vomiting Genitourinary: Reports nocturia, Denies dysuria Menstruation: Reports postmenopausal Musculoskeletal: Denies myalgias Musculoskeletal: absent: ankle pain, ankle stiffness, ankle swelling, elbow pain, elbow stiffness, elbow swelling, foot pain, foot stiffness, foot swelling, hand pain, hand stiffness, hand swelling, hip pain, hip stiffness, hip swelling, knee pain, knee stiffness, knee swelling, shoulder pain, shoulder stiffness, shoulder swelling, wrist pain, wrist stiffness, wrist swelling Integumentary: Denies pruritus, Denies rash Neurological: Denies numbness, Denies weakness Psychiatric: Denies anxiety, Denies depression Endocrine: Denies fatigue, Denies weight change - Constitutional General appearance: no acute distress, patient is resting in bed - EENT Eyes: anicteric sclerae, EOMI, PERRLA, no ptosis, no scleral icterus, normal appearance ENT: hearing grossly normal, NA/AT, normal oropharynx, no thrush Ears: bilateral: normal - Neck Neck: no lymphadenopathy, normal ROM, no rigidity, no stridor, no thyromegaly Carotids: bilateral: upstroke normal Thyroid: bilateral: normal size - Respiratory Respiratory: bilateral: diminished, negative: dullness, rales, rhonchi, wheezing, prolonged expiration, prolonged inspiration - Cardiovascular Rhythm: regular Heart sounds: normal: S1, S2 Abnormal Heart Sounds: systolic murmur, no S3 Gallop, no S4 Gallop - Gastrointestinal General gastrointestinal: normal bowel sounds, soft, no splenomegaly, no tenderness, no umbilical hernia, no ventral hernia - Integumentary Integumentary: normal, normal turgor - Musculoskeletal Musculoskeletal: gait normal, strength equal bilaterally - Psychiatric Psychiatric: A&O x's 3, appropriate affect, intact judgment & insight - Labs CBC & Chem 7: 01/20/19 07:32 01/22/19 06:41 Labs: Abnormal Lab Results - Last 24 Hours (Table) 01/21/19 01/22/19 Range/Units 10:33 06:41 Chloride 110 H 111 H (98-107) mmol/L BUN 4 L 4 L (7-17) mg/dL Glucose 104 H 106 H (74-99) mg/dL Assessment and Plan Plan: 1. Partial small bowel obstruction. Has resolved. Continue antibiotics for 70 course at home. 2. Paroxysmal atrial fibrillation currently in sinus rhythm. Continue patient on metoprolol 25 mg orally twice every day as well as Eliquis 5 mg orally twice every day. 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 3. Hypertension and hypertensive cardiovascular disease. Continue lisinopril 10 mg orally once every day, metoprolol 25 mg orally twice every day. Patient continue both medications at home. 4. Hyperlipidemia. Continue Lipitor 20 mg orally once every day. 5. Hypokalemia. Status post placement. 6. GERD. Continue Protonix 40 mg IV push every 24 hours. 7. DVT prophylaxis. Currently on Eliquis 8. GI prophylaxis. Continue PPI. 9. Thank you Dr. Barajas for the consult we will follow the patient with you. Discharge plan: Home today Impression and plan of care have been directed as dictated by the signing physician. Vanita Jacinto nurse practitioner acting as scribe for signing physician.
--- NOTE | 2019-01-22 13:42 | PN ---
PROGRESS NOTE This patient was admitted with a small-bowel obstruction. Patient had intermittent episode of atrial fibrillation. Patient's potassium was 3.3 and it has been corrected. Patient has remained in normal sinus since then. At present, we will continue the patient on beta ismael and Eliquis. Echocardiogram reveals overall normal left ventricular systolic function. The patient will be discharged home and will follow with Dr. Aguilar as an outpatient. MMKEIKO / ROSEN: [id number] /
--- NOTE | 2019-01-22 14:37 | P.DS ---
Providers Date of admission: 01/17/19 12:22 Expected date of discharge: 01/22/19 Attending physician: Juan Barajas Consults: 01/19/19 19:08 Consult Physician Routine Consulting Provider: Esther Wynn Consult Reason/Comments: med mgmt Do you want consulting provider notified?: Yes, Notify in am 01/20/19 20:55 Consult Physician Stat Consulting Provider: Brissa Bar Consult Reason/Comments: AFIB RVR Do you want consulting provider notified?: Yes Primary care physician: [facility] Course: 78-year-old female who is admitted to hospital secondary to abdominal pain, nausea, and vomiting. Patient was treated with IV antibiotics. Abdominal pain has resolved. Patient is tolerating diet. No further episodes of nausea or vomiting. Patient developed paroxysmal atrial fibrillation with RVR. Cardiology evaluated patient during hospitalization. She was placed on Cardizem drip for a period of time, which has since been discontinued. Patient started on Eliquis and Metoprolol per cardiology. She has since been maintaining sinus rhythm. Echo reveals normal EF per cardiology documentation. Patient cleared for discharge from cardiology and medicine perspective. Patient discharged home today in stable condition. Patient to follow up outpatient. Patient discharged home on Levaquin and Flagyl, along with Eliquis and metoprolol. Please see EMR for further hospital course details. Discharge diagnosis 1. Abdominal pain, nausea, vomiting, resolved 2. Enteritis, suspect from small bowel obstruction versus infectious etiology, resolved 3. Paroxysmal atrial fibrillation Nurse practitioner note has been reviewed by physician. Signing provider agrees with the documented findings, assessment, and plan of care. Plan - Discharge Summary New Discharge Prescriptions: New Apixaban [Eliquis] 5 mg PO BID #60 tab Metoprolol Tartrate [Lopressor] 25 mg PO BID #60 tab Pantoprazole [Protonix] 40 mg PO AC-BRKFST #30 tablet.dr Acetaminophen Tab [Tylenol] 650 mg PO Q6HR PRN tab PRN Reason: Fever And/ Or Pain metroNIDAZOLE [Flagyl] 500 mg PO Q8HR #21 tab Levofloxacin [Levaquin] 500 mg PO DAILY #7 tab Continue Oxybutynin Chloride 5 mg PO BID Lisinopril [Zestril] 10 mg PO DAILY Simvastatin [Zocor] 10 mg PO HS Lidocaine 5% Patch [Lidoderm 5% Patch] 1 patch TOPICAL DAILY HYDROcodone/APAP 10-325MG [Mission 10-325] 1 tab PO DAILY PRN PRN Reason: Pain Cholecalciferol [Vitamin D3 (25 Mcg = 1000 Iu)] 50,000 unit PO Q14D Discontinued Celecoxib [CeleBREX] 200 mg PO DAILY Discharge Medication List Lidocaine 5% Patch [Lidoderm 5% Patch] 1 patch TOPICAL DAILY 04/21/18 [History] Lisinopril [Zestril] 10 mg PO DAILY 04/21/18 [History] Oxybutynin Chloride 5 mg PO BID 04/21/18 [History] Simvastatin [Zocor] 10 mg PO HS 04/21/18 [History] Cholecalciferol [Vitamin D3 (25 Mcg = 1000 Iu)] 50,000 unit PO Q14D 09/16/18 [History] HYDROcodone/APAP 10-325MG [Mission 10-325] 1 tab PO DAILY PRN 09/16/18 [History] Acetaminophen Tab [Tylenol] 650 mg PO Q6HR PRN tab 01/22/19 [Rx] Apixaban [Eliquis] 5 mg PO BID #60 tab 01/22/19 [Rx] Levofloxacin [Levaquin] 500 mg PO DAILY #7 tab 01/22/19 [Rx] Metoprolol Tartrate [Lopressor] 25 mg PO BID #60 tab 01/22/19 [Rx] Pantoprazole [Protonix] 40 mg PO AC-BRKFST #30 tablet. 01/22/19 [Rx] metroNIDAZOLE [Flagyl] 500 mg PO Q8HR #21 tab 01/22/19 [Rx] Follow up Appointment(s)/Referral(s): Juan Barajas MD [Medical Doctor] - 01/28/19 12:30 pm (Only available appointment next week. ) Werner Aguilar MD [STAFF PHYSICIAN] - 01/30/19 3:45 pm (With Dominique PENA.) Raad John MD [Primary Care Provider] - 1 Week (Office will call with follow up appointment within 1-2 days of discharge. ) Patient Instructions/Handouts: A-fib (Atrial Fibrillation) (DC), Low Fiber Diet (DC), Bowel Obstruction (DC), Safe Use of Anticoagulants (DC) Activity/Diet/Wound Care/Special Instructions: pts Eliquis copay is $40/mo Discharge Disposition: HOME SELF-CARE
[2019-01-22] MEDS ORDERED: LEVOFLOXACIN 500 MG TAB PO SCH (21:00)
[2019-01-23] MEDS ORDERED: PANTOPRAZOLE 40 MG TABLET PO SCH (07:30)
--- NOTE | 2019-01-23 13:34 | ECHOF ---
Referral Reason:lv function MEASUREMENTS -------- HEIGHT: 154.9 cm WEIGHT: 57.2 kg BP: IVSd: 0.9 cm (0.6 - 1.1) LVIDd: 3.5 cm (3.9 - 5.3) LVPWd: 0.8 cm (0.6 - 1.1) IVSs: 1.7 cm LVIDs: 1.4 cm LVPWs: 1.3 cm Ao Diam: 2.3 cm (2.0 - 3.7) AV Cusp: 1.3 cm (1.5 - 2.6) LA Diam: 2.9 cm (2.7 - 3.8) EPSS: 1.3 cm MV E Homer: 0.93 m/s MV DecT: 156 ms MV A Homer: 1.00 m/s MV E/A Ratio: 0.93 RAP: 5.00 mmHg RVSP: 24.63 mmHg MV EF SLOPE: 62.49 mm/s (70 - 150) MV EXCURSION: 1.97 cm (> 18.000) FINDINGS -------- Sinus rhythm. This was a technically difficult study with suboptimal views. The left ventricular size is normal. Left ventricular wall thickness is normal. Overall left vent ricular systolic function is mildly impaired with, an EF between 45 - 50 %. Mid to basal inferolate ral hypokinesis The right ventricle is normal in size. The left atrial size is normal. The right atrial size is normal. Lumason used The aortic valve is trileaflet and appears structurally normal. The mitral valve leaflets are mildly thickened. Kxdb-px-eekbzfpo mitral regurgitation is present. Esqt-fp-niwdkorf tricuspid regurgitation present. There is no evidence of pulmonary hypertension. The right ventricular systolic pressure, as measured by Doppler, is 24.63mmHg. There is no pulmonic regurgitation present. The aortic root size is normal. The inferior vena cava was not well visualized. There is a trivial pericardial effusion present. CONCLUSIONS -------- 1. Sinus rhythm. 2. This was a technically difficult study with suboptimal views. 3. The left ventricular size is normal. 4. Left ventricular wall thickness is normal. 5. Overall left ventricular systolic function is mildly impaired with, an EF between 45 - 50 %. 6. Mid to basal inferolateral hypokinesis 7. The right ventricle is normal in size. 8. The left atrial size is normal. 9. The right atrial size is normal. 10. Lumason used 11. The aortic valve is trileaflet and appears structurally normal. 12. The mitral valve leaflets are mildly thickened. 13. Ulbu-tc-sxehfiei mitral regurgitation is present. 14. Henz-my-lvfpvizp tricuspid regurgitation present. 15. There is no evidence of pulmonary hypertension. 16. The right ventricular systolic pressure, as measured by Doppler, is 24.63mmHg. 17. There is no pulmonic regurgitation present. 18. The aortic root size is normal. 19. The inferior vena cava was not well visualized. 20. There is a trivial pericardial effusion present. PILLOWCASE FOLDER: Laura Oviedo RDCS
== END 2019-01-22 14:44 | disposition home or self-care (01) | DRG 390 ==
LOC: EC 09:07 → 4SSUR 12:22 → 3SCARD 01-20 22:37
PROVIDERS: ADMIT Surgery; ATTEND Surgery
DX: K56.600 Partial intestinal obstruction, unspecified as to cause (principal); E78.5 Hyperlipidemia, unspecified; E87.6 Hypokalemia; F41.9 Anxiety disorder, unspecified; G47.30 Sleep apnea, unspecified; I11.9 Hypertensive heart disease without heart failure; I48.0 Paroxysmal atrial fibrillation; K21.9 Gastro-esophageal reflux disease without esophagitis; K52.9 Noninfective gastroenteritis and colitis, unspecified; Z79.01 Long term (current) use of anticoagulants; Z79.1 Long term (current) use of non-steroidal anti-inflammatories (NSAID); Z79.899 Other long term (current) drug therapy; Z80.3 Family history of malignant neoplasm of breast; Z82.5 Family history of asthma and other chronic lower respiratory diseases; Z87.891 Personal history of nicotine dependence; Z90.13 Acquired absence of bilateral breasts and nipples; M48.00 Spinal stenosis, site unspecified; Z90.49 Acquired absence of other specified parts of digestive tract; Z86.19 Personal history of other infectious and parasitic diseases; Z99.89 Dependence on other enabling machines and devices; Z87.01 Personal history of pneumonia (recurrent)
CPT/HCPCS: 36415; 74019; 74176; 74177; 80048; 80053; 81001; 82150; 83605; 83690; 85025; 85610; 85730; 93005; 93306; 96361; 96374; 96375; 96376; 99285

== ENCOUNTER → 2022-08-13 | Outpatient (CLI) | payer OTHER ==
--- NOTE | 2022-08-13 16:12 | CT ---
EXAMINATION TYPE: CT angio abdomen pelvis DATE OF EXAM: 08/13/2022 COMPARISON: 01/18/2019 INDICATION: f/o aorta abd dissection DLP: 1199 mGycm, Automated exposure control for dose reduction was used. CONTRAST: 100 mL of Isovue 370. Study performed without Oral Contrast TECHNIQUE: Axial images were obtained from above the diaphragm to the pubic rami in the axial plane a t 5 mm thick sections. Reconstructed images are reviewed on the computer in the coronal plane. FINDINGS: Limited CT sections are obtained the lung bases. The lung bases are clear. Bilateral breast prosthe ses are present. CT ABDOMEN: Liver: Normal Spleen: Normal Pancreas: Normal Adrenal glands: The adrenal glands are normal. Gallbladder: Normal Kidneys: No masses are evident. No hydronephrosis is present. No cysts are present. Delayed images were obtained through the kidneys, which remain unremarkable. Aorta: No aneurysmal dilatation of the abdominal aorta is evident. Bifurcation is normal. Internal an d external iliac vessels are patent. No aortic dissection is radiographically apparent. Celiac axis s uperior mesenteric artery and renal arteries appear normal. Vascular calcification is within the aort a Inferior vena cava: Normal. CT PELVIS: Loops of bowel within the abdomen and pelvis are normal. Study is performed without oral contrast limiting bowel evaluation. Fecal debris is:. Appendix: Not identified. No dilated tubular structure inflammatory changes or other secondary signs of appendicitis are radiographically apparent. Urinary bladder: Normal. Genitourinary structures: Uterus and adnexa are normal. Osseous structures: No suspicious lytic or sclerotic lesions. IMPRESSIONS: 1. No aortic dissection radiographically apparent.
== END | disposition home or self-care (01) ==
LOC: RADCTMAIN 13:42
PROVIDERS: ATTEND Surgery
DX: I71.02 Dissection of abdominal aorta (principal)
CPT/HCPCS: 82565; 84520; 36415; 74174; Q9967